=== PATIENT | female | born 1935 | race Caucasian/White ===

== ENCOUNTER 2016-08-31 09:06 | Outpatient (CLI) | payer MEDICARE | END 2016-08-31 09:07 | disposition home or self-care (01) | DX: K22.8 Other specified diseases of esophagus (principal); K44.9 Diaphragmatic hernia without obstruction or gangrene ==

== ENCOUNTER 2016-10-28 09:25 | Outpatient (CLI) | payer MEDICARE | END 2016-10-28 09:26 | disposition home or self-care (01) | DX: E78.5 Hyperlipidemia, unspecified (principal); J31.0 Chronic rhinitis ==

== ENCOUNTER 2016-11-03 13:51 | Outpatient (CLI) | payer MEDICARE | END 2016-11-03 13:52 | disposition home or self-care (01) | DX: Z12.31 Encounter for screening mammogram for malignant neoplasm of breast (principal) ==

== ENCOUNTER 2016-11-03 13:53 | Outpatient (CLI) | payer MEDICARE | END 2016-11-03 13:54 | disposition home or self-care (01) | DX: M85.88 Other specified disorders of bone density and structure, other site (principal) ==

== ENCOUNTER 2016-12-26 12:38 | Outpatient (CLI) | payer MEDICARE | END 2016-12-26 12:39 | disposition home or self-care (01) | DX: R60.9 Edema, unspecified (principal); I51.7 Cardiomegaly ==

== ENCOUNTER 2017-04-17 10:33 | Outpatient (CLI) | payer MEDICARE ==
[2017-04-17 11:02] LABS: BASOPHILS # (AUTO) 0.1 10^3/uL (0.0-0.1); BASOPHILS % (AUTO) 0.8 %; EOSINOPHILS # (AUTO) 0.2 10^3/uL (0.0-0.7); EOSINOPHILS % (AUTO) 3.5 %; HCT - HEMATOCRIT 44.3 % (37.0-47.0); HGB - HEMOGLOBIN 14.7 g/dL (12.0-16.0); LYMPHOCYTES # (AUTO) 1.7 10^3/uL (1.5-3.5); LYMPHOCYTES % (AUTO) 26.4 %; MEAN CORPUSCULAR HEMOGLOBIN 30.5 pg (27.0-31.0); MEAN CORPUSCULAR HGB CONC 33.2 g/dL (32.0-36.0); MEAN CORPUSCULAR VOLUME 91.9 fL (81.0-99.0); MEAN PLATELET VOLUME 7.6 fL (7.9-10.8); MONOCYTES # (AUTO) 0.5 10^3/uL (0.0-1.0); MONOCYTES % (AUTO) 7.7 %; NEUTROPHILS # (AUTO) 3.9 10^3/uL (1.5-6.6); NEUTROPHILS % (AUTO) 61.6 %; NUCLEATED RED BLOOD CELLS AUTO 0.2 /100WBC; RED BLOOD COUNT 4.81 10^6/uL (4.20-5.40); RED CELL DISTRIBUTION WIDTH 14.3 % (12.0-15.0); UNCORRECTED WHITE BLOOD COUNT 6.3 x10^3/uL; WHITE BLOOD COUNT 6.3 x10^3/uL (4.8-10.8)
[2017-04-17 11:13] LABS: ALBUMIN/GLOBULIN RATIO 1.5 (1.0-2.2); BILIRUBIN,TOTAL 0.7 mg/dL (0.2-1.0); BUN - BLOOD UREA NITROGEN 24 mg/dL (6-20); CALCIUM 9.2 mg/dL (8.5-10.3); CARBON DIOXIDE - CO2 23 mmol/L (21-32); CHLORIDE 106 mmol/L (101-111); CHOL/HDL RATIO 2.7 (<4.4); CHOLESTEROL 172 mg/dL; CREATININE 0.9 mg/dL (0.4-1.0); GFR - MDRD 60 (>89); GLUCOSE 98 mg/dL (70-100); HDL CHOLESTEROL 64 mg/dL; LDL/HDL RATIO 1.5 (<4.4); POTASSIUM 4.6 mmol/L (3.5-5.0); SODIUM 137 mmol/L (135-145); TOTAL PROTEIN 6.6 g/dL (6.7-8.2); TRIGLYCERIDES 56 mg/dL; VLDL CHOLESTEROL 11 mg/dL
== END 2017-04-17 10:34 | disposition home or self-care (01) ==
LOC: LAB 10:33
PROVIDERS: ATTEND Physician Assistant Medical
DX: E78.5 Hyperlipidemia, unspecified (principal)
CPT/HCPCS: 36415; 80053; 80061; 85025

== ENCOUNTER 2017-07-20 12:09 | Outpatient (CLI) | payer MEDICARE ==
[2017-07-20 20:31] LABS: CALCIUM 9.6 mg/dL (8.5-10.3)
== END 2017-07-20 12:10 ==
LOC: LAB.WCP 12:09
PROVIDERS: ATTEND Physician Assistant Medical
DX: E87.6 Hypokalemia (principal)
CPT/HCPCS: 36415; 80048

== ENCOUNTER 2017-08-09 10:30 | Outpatient (CLI) | payer MEDICARE ==
[2017-08-09 15:03] LABS: BASOPHILS % (AUTO) 0.7 %; EOSINOPHILS # (AUTO) 0.1 10^3/uL (0.0-0.7); HCT - HEMATOCRIT 43.5 % (37.0-47.0); HGB - HEMOGLOBIN 14.7 g/dL (12.0-16.0); LYMPHOCYTES # (AUTO) 1.3 10^3/uL (1.5-3.5); LYMPHOCYTES % (AUTO) 19.5 %; MEAN CORPUSCULAR HEMOGLOBIN 31.1 pg (27.0-31.0); MEAN CORPUSCULAR HGB CONC 33.7 g/dL (32.0-36.0); MEAN CORPUSCULAR VOLUME 92.2 fL (81.0-99.0); MEAN PLATELET VOLUME 7.8 fL (7.9-10.8); MONOCYTES # (AUTO) 0.5 10^3/uL (0.0-1.0); MONOCYTES % (AUTO) 7.6 %; NEUTROPHILS # (AUTO) 4.8 10^3/uL (1.5-6.6); NEUTROPHILS % (AUTO) 70.2 %; RED BLOOD COUNT 4.72 10^6/uL (4.20-5.40); RED CELL DISTRIBUTION WIDTH 14.8 % (12.0-15.0); UNCORRECTED WHITE BLOOD COUNT 6.8 x10^3/uL; WHITE BLOOD COUNT 6.8 x10^3/uL (4.8-10.8)
[2017-08-09 15:08] LABS: ALBUMIN/GLOBULIN RATIO 1.6 (1.0-2.2); BILIRUBIN,TOTAL 0.5 mg/dL (0.2-1.0); BUN - BLOOD UREA NITROGEN 20 mg/dL (6-20); CALCIUM 9.9 mg/dL (8.5-10.3); CARBON DIOXIDE - CO2 28 mmol/L (21-32); CHLORIDE 103 mmol/L (101-111); CHOL/HDL RATIO 2.5 (<4.4); CHOLESTEROL 187 mg/dL; CREATININE 0.9 mg/dL (0.4-1.0); GFR - MDRD 60 (>89); GLUCOSE 100 mg/dL (70-100); HDL CHOLESTEROL 75 mg/dL; LDL/HDL RATIO 1.3 (<4.4); POTASSIUM 4.3 mmol/L (3.5-5.0); SODIUM 141 mmol/L (135-145); TOTAL PROTEIN 6.7 g/dL (6.7-8.2); TRIGLYCERIDES 90 mg/dL; VLDL CHOLESTEROL 18 mg/dL
== END 2017-08-09 23:59 ==
LOC: LAB.WCP 10:30
PROVIDERS: ATTEND Family Medicine
DX: G45.9 Transient cerebral ischemic attack, unspecified (principal); E78.5 Hyperlipidemia, unspecified; E03.9 Hypothyroidism, unspecified; I10 Essential (primary) hypertension
CPT/HCPCS: 36415; 80053; 80061; 84443; 85025

== ENCOUNTER 2017-09-05 10:06 | Inpatient (IN) | payer MEDICARE ==
[2017-09-05] MEDS ORDERED: SODIUM CHLORIDE 0.9% 1,000 ML IV ONE (10:14)
[2017-09-05 10:59] LABS: PT - PROTHROMBIN TIME 11.8 secs (9.9-12.6)
[2017-09-05 11:01] LABS: BASOPHILS # (AUTO) 0.2 10^3/uL (0.0-0.1); CALCIUM 9.7 mg/dL (8.5-10.3); EOSINOPHILS # (AUTO) 0.1 10^3/uL (0.0-0.7); EOSINOPHILS % (AUTO) 0.9 %; HGB - HEMOGLOBIN 13.3 g/dL (12.0-16.0); LYMPHOCYTES # (AUTO) 0.9 10^3/uL (1.5-3.5); LYMPHOCYTES % (AUTO) 9.8 %; MEAN CORPUSCULAR HEMOGLOBIN 31.2 pg (27.0-31.0); MEAN CORPUSCULAR HGB CONC 32.4 g/dL (32.0-36.0); MEAN CORPUSCULAR VOLUME 96.2 fL (81.0-99.0); MONOCYTES # (AUTO) 0.4 10^3/uL (0.0-1.0); MONOCYTES % (AUTO) 4.9 %; NEUTROPHILS # (AUTO) 7.2 10^3/uL (1.5-6.6); NEUTROPHILS % (AUTO) 82.4 %; PLT - PLATELET COUNT 251 10^3/uL (130-450); RED BLOOD COUNT 4.25 10^6/uL (4.20-5.40); RED CELL DISTRIBUTION WIDTH 15.2 % (12.0-15.0); WHITE BLOOD COUNT 8.8 x10^3/uL (4.8-10.8)
--- NOTE | 2017-09-05 11:31 | ED Physician Documentation ---
History of Present Illness - Stated complaint Stated Complaint: BLOODY STOOL, LOW BP - Chief complaint Chief Complaint: General - Additonal information Additional information: hx from pt 82 f 4 days ago bloody BM 3 days ago black BM last 2 days just small amt of BM went to PMD today and on exam had mikayla melena and was orthostatic dropped her SBP to 80 so sent to ER no blood thinners no abd pain no bad food no travel no recent ab on plavix on mobic last colonoscopy 2009 reportedly neg Review of Systems Constitutional: denies: Fever, Chills Cardiac: denies: Chest pain / pressure Respiratory: denies: Dyspnea GI: reports: Bloody / black stool. denies: Abdominal Pain, Nausea, Vomiting Neurologic: denies: Syncope Endocrine: denies: Easy bruising / bleeding Immunocompromised: denies: Immunocompromised PD PAST MEDICAL HISTORY - Past Medical History Past Medical History: Yes Cardiovascular: Hypertension Respiratory: COPD Neuro: TIA Endocrine/Autoimmune: HyPOthyroidism GI: Chronic constipation : Frequency Psych: None Musculoskeletal: Osteoporosis - Past Surgical History Past Surgical History: Yes General: Hiatal hernia repair - Present Medications Home Medications: Ambulatory Orders Medication Instructions Recorded Confirmed Atenolol 50 mg PO QPM 12/21/12 09/05/17 Clopidogrel [Plavix] 75 mg PO DAILY 12/21/12 09/05/17 Levothyroxine Sodium [Levothroid] 100 mcg PO QDAC 12/21/12 09/05/17 Tiotropium [Spiriva] 1 puffs INH DAILY 12/21/12 09/05/17 Amitriptyline [Elavil] 25 mg PO QPM PRN 04/11/17 09/05/17 Budesonide/Formoterol Fumarate 2 puffs ORAL BID 04/11/17 09/05/17 [Symbicort 160-4.5 Mcg Inhaler] Meloxicam 15 mg PO QPM PRN 04/11/17 09/05/17 Calcium Carbonate/Vitamin D3 1 tab PO DAILY 09/05/17 09/05/17 [Calcium 500-Vit D3 200 Tablet] Cholecalciferol (Vitamin D3) 1,000 units PO DAILY 09/05/17 09/05/17 [Vitamin D3] Magnesium Oxide [Mag Ox] 400 mg PO DAILY 09/05/17 09/05/17 Spironolactone 25 mg PO BID 09/05/17 09/05/17 - Allergies Allergies/Adverse Reactions: Allergies Allergy/AdvReac Type Severity Reaction Status Date / Time No Known Drug Allergies Allergy Verified 03/25/16 14:23 - Social History Does the pt smoke?: No Smoking Status: Never smoker Does the pt drink ETOH?: Yes Does the pt have substance abuse?: No - Immunizations Immunizations are current?: Yes PD ED PE NORMAL - Vitals Vital signs reviewed: Yes - Neck Neck: Supple, no meningeal sign - Cardiac Cardiac: RRR - Respiratory Respiratory: No respiratory distress, Clear bilaterally - Abdomen Abdomen: Soft, Non tender - Rectal Rectal: Other (no mass, mikayla dark maroon heme occult + semi liquid stool, no mass palp on JUVE) Results - Vitals Vitals: Vital Signs - 24 hr 09/05/17 09/05/17 10:13 10:52 Temperature 36.7 C Heart Rate 64 Heart Rate [ 70 Sitting] Heart Rate [ 70 Standing] Heart Rate [ 64 Supine] Respiratory 18 Rate Blood Pressure 115/93 H Blood Pressure 130/86 H [Sitting] Blood Pressure 123/76 [Standing] Blood Pressure 137/77 H [Supine] O2 Saturation 97 Oxygen O2 Source Room air - EKG (time done) 1022 Rate: Rate (enter#) (65) Lytle: Normal Intervals: Normal AL QRS: Normal Ischemia: Non specific changes - Labs Labs: Laboratory Tests 09/05/17 09/05/17 09/05/17 10:35 10:35 10:35 WBC 8.8 RBC 4.25 Hgb 13.3 Hct 40.9 MCV 96.2 MCH 31.2 H MCHC 32.4 RDW 15.2 H Plt Count 251 MPV 8.0 Neut # 7.2 H Lymph # 0.9 L Guthrie # 0.4 Eos # 0.1 Baso # 0.2 H Absolute Nucleated RBC 0.00 Nucleated RBC % 0.0 PT 11.8 INR 1.0 APTT 28.5 Sodium 137 Potassium 3.8 Chloride 102 Carbon Dioxide 26 Anion Gap 9.0 BUN 31 H Creatinine 1.0 Estimated GFR (MDRD) 53 L Glucose 97 Calcium 9.7 Troponin I Blood Type Blood Type Recheck Antibody Screen Crossmatch IS Only 09/05/17 09/05/17 09/05/17 10:35 10:35 10:38 WBC RBC Hgb Hct MCV MCH MCHC RDW Plt Count MPV Neut # Lymph # Guthrie # Eos # Baso # Absolute Nucleated RBC Nucleated RBC % PT INR APTT Sodium Potassium Chloride Carbon Dioxide Anion Gap BUN Creatinine Estimated GFR (MDRD) Glucose Calcium Troponin I < 0.04 Blood Type O POSITIVE Blood Type Recheck O POSITIVE Antibody Screen NEGATIVE Crossmatch IS Only See Detail PD MEDICAL DECISION MAKING - ED course ED course: stable at rest nl orthostatics in ER but + in clinic still actively bleeding - if dc will likely have sig blood loss and return to ER before outpt wup can be accomplished will place obs for serial H/H and consideration of scopes on mobic so could be upper though no abd pain - gave pepcid Departure - Departure Disposition: ED Place in Observation Clinical Impression: GI bleed Qualifiers: GI bleed type/associated pathology: melena Qualified Code(s): K92.1 - Melena Condition: Good
[2017-09-05] MEDS ORDERED: FAMOTIDINE 20 MG/50 ML 50 ML IV ONE (11:33)
[2017-09-05] MEDS ORDERED: PROCHLORPERAZINE 10 MG/2 ML VIAL IVP PRN (12:11)
[2017-09-05] MEDS ORDERED: SODIUM CHLORIDE FLUSH 0.9% 10 ML SYRINGE IVP PRN (12:11)
[2017-09-05] MEDS ORDERED: oxyCODONE 5 MG TABLET PO PRN (12:11)
[2017-09-05] MEDS ORDERED: TEMAZEPAM 15 MG CAPSULE PO PRN (12:11)
--- NOTE | 2017-09-05 13:10 | HISTORY & PHYSICAL EXAMINATION ---
Chief Complaint - Chief Complaint Chief Complaint: GI Bleed History of Present Illness - Admitted From Admitted From:: Home - History of Present Illness HPI Comment/Other: Ms. Patria Alcantara is a very pleasant 82-year-old woman who had an episode about 2 months ago bright red blood per rectum. This turned into black stools and then regular stools over the course of about 2 or 3 days. This reoccurred this past weekend and today the patient became very lightheaded and went in to see her doctor, Dr. Warren. Dr. Warren evaluated the patient and sent her to the emergency department for further evaluation and treatment. History - Past Medical History Cardiovascular: reports: Hypertension Respiratory: reports: COPD Neuro: reports: TIA Endocrine/Autoimmune: reports: HyPOthyroidism GI: reports: Chronic constipation : reports: Frequency Psych: reports: None Musculoskeletal: reports: Osteoporosis MRSA Hx?: No - Past Surgical History General: reports: Other (Umbilical hernia repair) - Family & Social History Family History: Mother: , CVA/TIA, Father: , COPD/Emphysema Living arrangement: At home Living Situation: Alone - Substance History Use: Uses substance without health or social issues: Alcohol Abuse: Recurrent use of substance despite neg consequences: NONE Dependence: Experiences withdrawal or developed tolerances: NONE - POLST Patient has POLST: Yes POLST Status: DNR (Patient states she has not filled out a POLST however wishes to have DO NOT RESUSCITATE order status) Meds/Allgy - Home Medications Home Medications: Ambulatory Orders Medication Instructions Recorded Confirmed Atenolol 50 mg PO DAILY 12/21/12 09/05/17 Clopidogrel [Plavix] 75 mg PO DAILY 12/21/12 09/05/17 Levothyroxine Sodium [Levothroid] 100 mcg PO DAILY 12/21/12 09/05/17 Tiotropium [Spiriva] 1 puffs INH DAILY 12/21/12 09/05/17 Amitriptyline [Elavil] 25 mg PO QPM 04/11/17 09/05/17 Budesonide/Formoterol Fumarate 2 puffs ORAL DAILY 04/11/17 09/05/17 [Symbicort 160-4.5 Mcg Inhaler] Meloxicam 15 mg PO DAILY 04/11/17 09/05/17 Calcium Carbonate/Vitamin D3 1 tab PO DAILY 09/05/17 09/05/17 [Calcium 500-Vit D3 200 Tablet] Cholecalciferol (Vitamin D3) 1,000 units PO DAILY 09/05/17 09/05/17 [Vitamin D3] Magnesium Oxide [Mag Ox] 400 mg PO DAILY 09/05/17 09/05/17 Spironolactone 25 mg PO BID 09/05/17 09/05/17 - Allergies Allergies/Adverse Reactions: Allergies Allergy/AdvReac Type Severity Reaction Status Date / Time No Known Drug Allergies Allergy Verified 03/25/16 14:23 Review of Systems - Constitutional Constitutional: denies: Fatigue, Fever, Chills, Malaise - Eyes Eyes: denies: Pain, Irritation, Blurred vision, Dipolpia - Ears, Nose & Throat Ears, Nose & Throat: denies: Ear pain, Hearing loss, Hearing aids, Tinnitus, Vertigo, Nasal pain, Nasal discharge - Cardiovascular Cariovascular: reports: Edema. denies: Irregular heart rate, Palpitations, Chest pain - Respiratory Respiratory: denies: Cough, Sputum production, Wheezing, Hemoptysis, Orthopnea - Gastrointestinal Gastrointestinal: reports: Black stools, Bloody stools. denies: Abdominal pain , Abdominal distention, Constipation, Diarrhea, Change in bowel habits, Rectal bleeding - Genitourinary Genitourinary: denies: Dysuria, Frequency, Urgency, Hematuria - Musculoskeletal Musculoskeletal: denies: Muscle pain, Back pain, Muscle aches, Stiffness - Integumentary Integumentary: denies: Rash, Pruritis, Lesions, Dryness - Neurological Neurological: denies: General weakness, Focal weakness, Headache, Dizziness - Endocrine Endocrine: denies: Polyuria, Polydypsia, Polyphagia - Hematologic/Lymphatic Hematologic/Lymphatic: denies: Anemia, Bruising, Petechiae, Lymphadenopathy - All Other Systems All Other Systems: reports: Reviewed and negative Exam - Vital Signs Reviewed Vital Signs: Yes Vital Signs: Vital Signs x48h Temp Pulse Pulse Pulse Pulse Resp BP 09/05/17 10:52 70 70 64 09/05/17 10:13 36.7 C 64 18 115/93 H BP BP BP Pulse Ox 09/05/17 10:52 130/86 H 123/76 137/77 H 09/05/17 10:13 97 - Physical Exam General Appearance: positive: No acute distress, Alert Eyes Bilateral: positive: Normal inspection, PERRL, EOMI, No lid inflammation ENT: positive: ENT inspection nml, Pharynx nml, No signs of dehydration. negative: Purulent nasal drainage Neck: positive: Nml inspection, Thyroid nml, No JVD, Trachea midline. negative : Thyromegaly Respiratory: positive: Chest non-tender, No respiratory distress, Breath sounds nml. negative: Wheezes, Rales, Rhonchi Cardiovascular: positive: Regular rate & rhythm, No murmur, No gallop Peripheral Pulses: positive: 1+ Abdomen: positive: Non-tender, No organomegaly, Nml bowel sounds, No distention. negative: Guarding, Rebound Back: positive: Nml inspection. negative: CVA tenderness (R), CVA tenderness (L ) Skin: positive: Color nml, No rash, Warm, Dry. negative: Cyanosis Extremities: positive: Non-tender, Full ROM, Nml appearance Neurologic/Psychiatric: positive: Oriented x3, CN's nml (2-12), Motor nml, Sensation nml, Mood/affect nml Conclusion/Plan - Problem List (1) GI bleed Conclusion/Plan: At this time although she has been orthostatic she remains relatively stable with a hemoglobin of 13 and a hematocrit of 30.9. We will give her IV fluids and she may be dry as evidenced by the orthostasis and admit her to an observation bed. Will obtain a consultation with the on-call surgeon and address any other issues as they arise. We will continue the patient on her home medications. Qualifiers: GI bleed type/associated pathology: melena Qualified Code(s): K92.1 - Melena (2) COPD (chronic obstructive pulmonary disease) Conclusion/Plan: Well-managed, the patient is not in any respiratory distress at this time. Continue present care. (3) HTN (hypertension) Conclusion/Plan: Patient has a history of hypertension, her pressure is well-managed at this time. Continue home medications. Qualifiers: Hypertension type: essential hypertension Qualified Code(s): I10 - Essential (primary) hypertension - Lab Results Lab results reviewed: Yes Ramo Bones: 09/05/17 10:35 09/05/17 10:35 Core Measures - Anticipated LOS I expect patient to be DC'd or transferred within 96 hours.: Yes - DVT/VTE - Prophylaxis VTE/DVT Device ordered at admit?: Yes
[2017-09-05] MEDS ORDERED: ALBUTEROL NEB 2.5 MG/3 ML INH PRN (13:40)
[2017-09-05] MEDS: D5.45NS W/20 MEQ KCL 1,000 ML IV SCH ×2 (13:51→23:42)
[2017-09-05] MEDS ORDERED: AMITRIPTYLINE 25 MG TABLET PO PRN (13:53)
[2017-09-05] MEDS: SODIUM CHLORIDE FLUSH 0.9% 10 ML SYRINGE IVP SCH ×2 (14:27→21:32)
[2017-09-05] MEDS: SPIRONOLACTONE 25 MG TABLET PO SCH (15:10)
[2017-09-05] MEDS: PANTOPRAZOLE 40 MG VIAL IVP SCH (17:00)
[2017-09-05] MEDS: SODIUM/POTASSIUM/MAG SULFATES 354 ML PREP KIT PO SCH (19:26)
[2017-09-05] MEDS ORDERED: AMITRIPTYLINE 25 MG TABLET PO SCH (21:00)
[2017-09-05] MEDS: ATENOLOL 25 MG TABLET PO SCH (21:20)
[2017-09-05] MEDS: IPRATROPIUM 0.2 MG/ML NEB INH SCH (22:35)
[2017-09-05] MEDS: BUDESONIDE 0.5 MG/2 ML NEB INH SCH (22:35)
[2017-09-05] MEDS: FORMOTEROL FUMARATE NEB 20 MCG/2 ML INH SCH (22:35)
--- NOTE | 2017-09-05 22:40 | CONSULTATION NOTE ---
Referring Provider Name of Referring Provider:: Mervat Obrien MD Consult Date: 09/05/17 Chief Complaint - Chief Complaint Chief Complaint: Occult blood positive stools History of Present Illness - Admitted From Admitted From:: Emergency Department - History Obtained From Records Reviewed: Yes History obtained from: Patient Exam Limitations: None - History of Present Illness HPI Comment/Other: Dr. Mervat Obrien called me on consultation to evaluate this very pleasant 82-year -old female after she presented to the emergency department today and was evaluated by Dr. Karen Stovall and it was determined that she had OB positive stools. The story is that she was seen in her primary care doctor's office where she was determined to have orthostatic hypotension. The patient states that several months ago she had an episode of blood per rectum which then resolved. This repeated itself several days ago. This was described as painless red blood per rectum. The patient denies any hematemesis, nausea, vomiting, or unexplained or unwarranted weight loss. The patient's last colonoscopy was performed in October [address] Fru Galvan who noted MASSIVE diverticulosis throughout her colon. The capitalization of the word massive was done by Dr. Fru Galvan. Additionally she was seen by Dr. Raj Cordero on August 16, 2016 and diagnosed with dysphasia. The plan the Dr. Ramirez outlined for her was a barium swallow followed by an EGD. 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 The patient then called and canceled her EGD that had been scheduled for September 12, 2016. Importantly the patient is on both Mobic and Plavix. History - Past Medical History Cardiovascular: reports: Hypertension Respiratory: reports: COPD Neuro: reports: TIA Endocrine/Autoimmune: reports: HyPOthyroidism GI: reports: Chronic constipation : reports: Frequency HEENT: reports: None Psych: reports: None Musculoskeletal: reports: Osteoporosis Derm: reports: None MRSA Hx?: No - Past Surgical History General: reports: Other (Umbilical hernia repair) - Family & Social History Family History: Mother: , CVA/TIA, Father: , COPD/Emphysema Living arrangement: At home Living Situation: Alone - Substance History Use: Uses substance without health or social issues: Alcohol Abuse: Recurrent use of substance despite neg consequences: NONE Dependence: Experiences withdrawal or developed tolerances: NONE - POLST Patient has POLST: Yes POLST Status: DNR (Patient states she has not filled out a POLST however wishes to have DO NOT RESUSCITATE order status) Meds/Allgy - Home Medications Home Medications: Ambulatory Orders Medication Instructions Recorded Confirmed Atenolol 50 mg PO QPM 12/21/12 09/05/17 Clopidogrel [Plavix] 75 mg PO DAILY 12/21/12 09/05/17 Levothyroxine Sodium [Levothroid] 100 mcg PO QDAC 12/21/12 09/05/17 Tiotropium [Spiriva] 1 puffs INH DAILY 12/21/12 09/05/17 Amitriptyline [Elavil] 25 mg PO QPM PRN 04/11/17 09/05/17 Budesonide/Formoterol Fumarate 2 puffs ORAL BID 04/11/17 09/05/17 [Symbicort 160-4.5 Mcg Inhaler] Meloxicam 15 mg PO QPM PRN 04/11/17 09/05/17 Calcium Carbonate/Vitamin D3 1 tab PO DAILY 09/05/17 09/05/17 [Calcium 500-Vit D3 200 Tablet] Cholecalciferol (Vitamin D3) 1,000 units PO DAILY 09/05/17 09/05/17 [Vitamin D3] Magnesium Oxide [Mag Ox] 400 mg PO DAILY 09/05/17 09/05/17 Spironolactone 25 mg PO BID 09/05/17 09/05/17 - Allergies Allergies/Adverse Reactions: Allergies Allergy/AdvReac Type Severity Reaction Status Date / Time No Known Drug Allergies Allergy Verified 03/25/16 14:23 Review of Systems - Constitutional Constitutional: denies: Fatigue, Malaise, Weakness, Poor appetite, Night sweats , Weight loss - Cardiovascular Cariovascular: denies: Irregular heart rate, Chest pain - Respiratory Respiratory: denies: Cough, Sputum production, Hemoptysis, Apnea - Gastrointestinal Gastrointestinal: denies: Abdominal pain, Constipation, Diarrhea, Nausea, Vomiting, Bile emesis, Howard blood emesis, Coffee grounds emesis, Bloating - Integumentary Integumentary: denies: Rash - Neurological Neurological: denies: General weakness, Focal weakness - Endocrine Endocrine: denies: Polyuria, Polydypsia, Polyphagia - Hematologic/Lymphatic Hematologic/Lymphatic: denies: Anemia Exam - Vital Signs Reviewed Vital Signs: Yes Vital Signs: Vital Signs x48h Temp Pulse Resp BP Pulse Ox 09/05/17 21:10 36.3 C L 59 L 18 107/70 97 09/05/17 15:31 36.7 C 59 L 18 113/75 97 - Physical Exam General Appearance: positive: No acute distress (The patient is examined in room 2111 in the observation winter of [facility].) Eyes Bilateral: positive: No lid inflammation, Conjunctivae nml, No scleral icterus Neck: positive: Trachea midline Respiratory: positive: Chest non-tender, No respiratory distress, Breath sounds nml Cardiovascular: positive: Regular rate & rhythm Abdomen: positive: Non-tender, Nml bowel sounds Rectal: positive: Other (Deferred until colonoscopy.) Skin: positive: Color nml Extremities: positive: Non-tender, Nml appearance Neurologic/Psychiatric: positive: Oriented x3 Conclusion/Plan - Diagnosis Diagnosis: Gastrointestinal bleed. - Plan Plan: Esophagogastroduodenoscopy and colonoscopy with possible biopsies and/or polypectomies. Indications, procedure, alternatives (such as barium studies ( upper or lower), Cologuard (lower) and even no procedure at all) and risks including but not limited to perforation requiring operative repair, bleeding with its risks, and were fully explained to her. Conscious sedation was discussed at length with her as were its risks including but not limited to loss of airway, aspiration, respiratory depression, and not enough relief of pain and anxiety and she indicated that she wished to have conscious sedation for her procedure. I explained that her posterior oropharynx would also be anesthetized for the procedure. I explained that MAC anesthesia is associated with a higher incidence of intestinal perforation. Review of her history does not reveal any significant systemic disease that would contraindicate use of conscious sedation or MAC anesthesia. All questions were fully answered. Verbal and written consent was obtained. The patient in preparation for her esophagogastroduodenoscopy and colonoscopy will be n.p.o. and her colon will be mechanically prepped (I have ordered the clear liquid diet and the Suprep). 35 minutes of [id number] time spent with the patient the majority of which was spent in discussion - Lab Results Lab results reviewed: Yes Fish Bones: 09/05/17 10:35 09/05/17 10:35 - EKG Results EKG Interpreted Independently: No - Other Other Results/Comments: Due to scheduling conflicts this procedure will likely be done at or after 2 PM on September 06, 2017. The patient was informed of this.
[2017-09-06] MEDS: SODIUM CHLORIDE FLUSH 0.9% 10 ML SYRINGE IVP SCH ×2 (07:12→14:05)
[2017-09-06] MEDS: LEVOTHYROXINE 100 MCG TABLET PO SCH (07:12)
[2017-09-06] MEDS: PANTOPRAZOLE 40 MG VIAL IVP SCH ×2 (07:12→17:38)
[2017-09-06] MEDS: POLYETHYLENE GLYCOL 3350 17 GM PACKET PO SCH (08:58)
[2017-09-06] MEDS ORDERED: hydroCHLOROthiazide 25 MG TABLET PO SCH (09:00)
[2017-09-06] MEDS: MAGNESIUM OXIDE 400 MG TABLET PO SCH (09:18)
[2017-09-06] MEDS: SPIRONOLACTONE 25 MG TABLET PO SCH (09:18)
[2017-09-06] MEDS: SODIUM/POTASSIUM/MAG SULFATES 354 ML PREP KIT PO SCH (09:29)
[2017-09-06] MEDS: D5.45NS W/20 MEQ KCL 1,000 ML IV SCH ×2 (09:29→19:26)
[2017-09-06] MEDS ORDERED: MIDAZOLAM 2 MG/2 ML VIAL IVP ONE (14:47)
[2017-09-06] MEDS ORDERED: fentaNYL 100 MCG/2 ML VIAL IVP ONE (14:47)
[2017-09-06] MEDS ORDERED: LACTATED RINGERS 1,000 ML IV ONE (14:59)
--- NOTE | 2017-09-06 18:01 | PROVIDER PROGRESS NOTE ---
Subjective - Prog Note Date Prog Note Date: 09/06/17 Prog Note Time: 18:00 - Subjective Pt reports feeling: No change Current Medications - Current Medications Current Medications: Atenolol, Plavix, levothyroxine, Spiriva, Elavil, Symbicort, meloxicam, calcium carbonate, vitamin D3, magnesium oxide, and Spironolactone Objective - Vital Signs/Intake & Output Reviewed Vital Signs: Yes Vital Signs: Vital Signs x48h Temp Pulse Pulse Resp BP Pulse Ox 09/06/17 16:35 36.5 C 68 15 128/64 96 09/06/17 16:23 60 14 137/61 H 95 09/06/17 16:07 36.2 C L 65 16 150/75 H 95 09/06/17 15:59 36.2 C L 74 14 144/72 H 98 09/06/17 15:54 97 09/06/17 15:48 100 09/06/17 12:37 36.6 C 70 18 116/86 H 98 Intake & Output: Intake & Output 09/03/17 09/04/17 09/05/17 09/06/17 23:59 23:59 23:59 23:59 Intake Total 4125 3598.333 Balance 4125 3598.333 - Objective General Appearance: positive: No acute distress, Alert Eyes Bilateral: positive: Normal inspection, PERRL, EOMI ENT: positive: ENT inspection nml, Pharynx nml, No signs of dehydration Neck: positive: Nml inspection, Thyroid nml, No JVD, Trachea midline. negative : Thyromegaly Respiratory: positive: Chest non-tender, No respiratory distress, Breath sounds nml. negative: Wheezes, Rales, Rhonchi Cardiovascular: positive: Regular rate & rhythm, No murmur, No gallop. negative : Tachycardia Abdomen: positive: Non-tender, No organomegaly, Nml bowel sounds, No distention. negative: Guarding, Rebound Rectal: positive: Stool - heme POS Back: positive: Nml inspection. negative: CVA tenderness (R), CVA tenderness (L ) Skin: positive: Color nml, No rash, Warm, Dry. negative: Cyanosis Extremities: positive: Non-tender, Full ROM, Nml appearance. negative: Pedal edema Neurologic/Psychiatric: positive: Oriented x3, CN's nml (2-12), Motor nml, Sensation nml, Mood/affect nml - Lab Results Fish Bones: 09/05/17 10:35 09/05/17 10:35 Assessment/Plan - Problem List (1) GI bleed Impression: The patient underwent both an upper and lower endoscopy today with Dr. Patel's office. He found a bleeding diverticula in the patient's left distal colon. He was unable to isolate the exact source and we will be referring the patient to interventional radiology for further assessment and treatment. At this time however her hemoglobin is 13.3 and her hematocrit is 40.9 Qualifiers: GI bleed type/associated pathology: melena Qualified Code(s): K92.1 - Melena (2) COPD (chronic obstructive pulmonary disease) Impression: The patient is breathing easily on room air. We will continue with her current home medication regimen. (3) HTN (hypertension) Impression: The patient's blood pressure has been well managed. We will continue with the current medication regimen. Qualifiers: Hypertension type: essential hypertension Qualified Code(s): I10 - Essential (primary) hypertension
[2017-09-06] MEDS: IPRATROPIUM 0.2 MG/ML NEB INH SCH ×2 (19:27→21:45)
[2017-09-06] MEDS: FORMOTEROL FUMARATE NEB 20 MCG/2 ML INH SCH ×2 (19:27→21:44)
[2017-09-06] MEDS: BUDESONIDE 0.5 MG/2 ML NEB INH SCH ×2 (19:27→21:44)
[2017-09-06] MEDS: ATENOLOL 25 MG TABLET PO SCH (21:52)
[2017-09-07] MEDS: IPRATROPIUM 0.2 MG/ML NEB INH SCH ×2 (01:23→10:51)
[2017-09-07] MEDS: LEVOTHYROXINE 100 MCG TABLET PO SCH (06:33)
[2017-09-07] MEDS ORDERED: SODIUM CHLORIDE FLUSH 0.9% 10 ML SYRINGE ONE ×2 (06:34)
[2017-09-07] MEDS: PANTOPRAZOLE 40 MG VIAL IVP SCH (07:00)
[2017-09-07 08:08] VITALS: BP 139/89
[2017-09-07] MEDS: POLYETHYLENE GLYCOL 3350 17 GM PACKET PO SCH (08:20)
[2017-09-07] MEDS: SPIRONOLACTONE 25 MG TABLET PO SCH (08:23)
[2017-09-07] MEDS: MAGNESIUM OXIDE 400 MG TABLET PO SCH (08:23)
--- NOTE | 2017-09-07 09:24 | Discharge Plan ---
Discharge Plan Disposition: 01 Home, Self Care Condition: Good Diet: Regular Activity Restrictions: Activity as Tolerated Shower Restrictions: No Driving Restrictions: No Weight Bearing: Full Weight (The patient was admitted and seen by Dr. Baptiste who did an upper and lower endoscopy. At this point the consensus is that the patient should be seen by an interventional radiologist for coiling of the leaking diverticula. If the patient has further bouts of rectal bleeding and re -presents to the emergency department we are in agreement that the patient should be transferred to a facility that has an interventional radiologist rather than be admitted.) Instruction Topics: Bleeding Gastrointestinal No Smoking: If you smoke, Please STOP! Call for help. Follow-up with: Aria Warren PA-C [Primary Care Provider] -
[2017-09-07] MEDS: FORMOTEROL FUMARATE NEB 20 MCG/2 ML INH SCH (10:52)
[2017-09-07] MEDS: BUDESONIDE 0.5 MG/2 ML NEB INH SCH (10:52)
--- NOTE | 2017-09-08 17:11 | DISCHARGE SUMMARY ---
Discharge Summary Admit Date: 09/05/17 Discharge Date: 09/07/17 Discharging Provider: Mervat Obrien DO Primary Care Provider: Aria Warren Code Status: Attempt Resuscitation Condition at Discharge: Good Discharge Disposition: Home, Self Care - DIAGNOSES Admission Diagnoses: GI bleed - HPI History of Present Illness: Ms. Patria Alcantara is a very pleasant 82-year-old woman who had an episode about 2 months ago bright red blood per rectum. This turned into black stools and then regular stools over the course of about 2 or 3 days. This reoccurred this past weekend and today the patient became very lightheaded and went in to see her doctor, Dr. Warren. Dr. Warren evaluated the patient and sent her to the emergency department for further evaluation and treatment. - HOSPITAL COURSE Hospital Course: Patient was admitted to the hospital on the medical surgical unit. She was placed n.p.o. and underwent a bowel prep. She underwent an upper and lower endoscopy with Dr. Patel's office who found a bleeding site in the patient's left distal colon. He believes this is inside a diverticula but was unable to find the source.The patient will be discharged home and will follow up with her primary care physician and will follow up with interventional radiology on an outpatient basis to seal this bleed. - ALLERGIES Allergies/Adverse Reactions: Allergies Allergy/AdvReac Type Severity Reaction Status Date / Time No Known Drug Allergies Allergy Verified 03/25/16 14:23 - MEDICATIONS Home Medications: Ambulatory Orders Medication Instructions Recorded Confirmed Atenolol 50 mg PO QPM 12/21/12 09/05/17 Clopidogrel [Plavix] 75 mg PO DAILY 12/21/12 09/05/17 Levothyroxine Sodium [Levothroid] 100 mcg PO QDAC 12/21/12 09/05/17 Tiotropium [Spiriva] 1 puffs INH DAILY 12/21/12 09/05/17 Amitriptyline [Elavil] 25 mg PO QPM PRN 04/11/17 09/05/17 Budesonide/Formoterol Fumarate 2 puffs ORAL BID 04/11/17 09/05/17 [Symbicort 160-4.5 Mcg Inhaler] Meloxicam 15 mg PO QPM PRN 04/11/17 09/05/17 Calcium Carbonate/Vitamin D3 1 tab PO DAILY 09/05/17 09/05/17 [Calcium 500-Vit D3 200 Tablet] Cholecalciferol (Vitamin D3) 1,000 units PO DAILY 09/05/17 09/05/17 [Vitamin D3] Magnesium Oxide [Mag Ox] 400 mg PO DAILY 09/05/17 09/05/17 Spironolactone 25 mg PO BID 09/05/17 09/05/17 - PHYSICAL EXAM AT DISCHARGE General Appearance: positive: No acute distress, Alert Eyes Bilateral: positive: Normal inspection, PERRL, EOMI, No lid inflammation, Conjunctivae nml ENT: positive: ENT inspection nml, Pharynx nml, No signs of dehydration Neck: positive: Nml inspection, Thyroid nml, No JVD, Trachea midline. negative : Thyromegaly Respiratory: positive: Chest non-tender, No respiratory distress, Breath sounds nml. negative: Wheezes, Rales, Rhonchi Cardiovascular: positive: Regular rate & rhythm, No murmur, No gallop Peripheral Pulses: positive: 1+ Abdomen: positive: Non-tender, No organomegaly, Nml bowel sounds, No distention. negative: Tenderness Back: positive: Nml inspection. negative: CVA tenderness (R), CVA tenderness (L ) Skin: positive: Color nml, No rash, Warm, Dry. negative: Cyanosis Extremities: positive: Non-tender, Full ROM, Nml appearance, No pedal edema Neurologic/Psychiatric: positive: Oriented x3, CN's nml (2-12), Motor nml, Sensation nml, Mood/affect nml - LABS Result Diagrams: 09/05/17 10:35 09/05/17 10:35 - FOLLOW UP Follow Up: The patient will follow up with Dr. Hailey Warren as an outpatient next week and will make arrangements for outpatient interventional radiology to ablate the leaking diverticulum. - TIME SPENT Time Spent in Discharge (Minutes): 40
== END 2017-09-07 12:45 | disposition home or self-care (01) | DRG 379 ==
LOC: ED 10:06 → OBS 12:11 → OBSVTOIN 09-06 17:55 → MS2 09-06 20:18
PROVIDERS: ADMIT Hospitalist; ATTEND Hospitalist
PROC: 0DBN8ZZ Excision of Sigmoid Colon, Via Natural or Artificial Opening Endoscopic (ICD-10-PCS; principal; 2017-09-06 14:00)
PROC: 0DB68ZX Excision of Stomach, Via Natural or Artificial Opening Endoscopic, Diagnostic (ICD-10-PCS; 2017-09-06 14:00)
DX: K57.31 Diverticulosis of large intestine without perforation or abscess with bleeding (principal); K63.5 Polyp of colon; K29.70 Gastritis, unspecified, without bleeding; J44.9 Chronic obstructive pulmonary disease, unspecified; K44.9 Diaphragmatic hernia without obstruction or gangrene; I10 Essential (primary) hypertension; E03.9 Hypothyroidism, unspecified; K59.09 Other constipation; R35.0 Frequency of micturition; M81.0 Age-related osteoporosis without current pathological fracture; Z66 Do not resuscitate; Z79.02 Long term (current) use of antithrombotics/antiplatelets; Z79.51 Long term (current) use of inhaled steroids; Z79.899 Other long term (current) drug therapy; Z86.73 Personal history of transient ischemic attack (TIA), and cerebral infarction without residual deficits
CPT/HCPCS: 43239; 45380; G0378; 36415; 80048; 84484; 85025; 85610; 85730; 86850; 86900; 86901; 86920; 87081; 88305; 93005; 94640; 96361; 96365; 96375; 96376; 99283; 99284

== ENCOUNTER 2017-11-28 12:45 | Outpatient (CLI) | payer MEDICARE ==
--- NOTE | 2017-11-29 12:03 | Mammography Report ---
DIGITAL SCREENING MAMMOGRAM: 11/28/2017 CLINICAL INDICATION: An 82-year-old, for screening. COMPARISON: 10/2016, 07/2015, 10/2012, 10/2011. TECHNIQUE: Routine CC and MLO projections were obtained of the breasts. FINDINGS: The breasts demonstrate scattered fibroglandular densities bilaterally. Coarse, typically benign calcifications are present. No suspicious masses, clustered microcalcifications, or regions of architectural distortion are identified. IMPRESSION: BENIGN FINDINGS. RECOMMENDATION: ROUTINE ANNUAL SCREENING UNLESS OTHERWISE CLINICALLY INDICATED. BIRADS CATEGORY 2-BENIGN FINDINGS. STANDARD QUALIFYING STATEMENTS: 1. This examination was reviewed with the aid of Computer-Aided Detection (CAD). 2. A negative or benign imaging report should not delay biopsy if clinically suspicious findings are present. Consider surgical consultation if warranted. More than 5% of cancers are not identified by imaging. 3. Dense breasts may obscure an underlying neoplasm. TD: 11/29/2017 12:01
== END 2017-11-28 12:46 | disposition home or self-care (01) ==
LOC: DI 12:45
PROVIDERS: ATTEND Physician Assistant Medical
DX: Z12.31 Encounter for screening mammogram for malignant neoplasm of breast (principal)
CPT/HCPCS: 77067

== ENCOUNTER 2018-02-25 12:49 | Outpatient (CLI) | payer MEDICARE | END 2018-02-25 12:50 | disposition home or self-care (01) | LOC: DI 12:49 | PROVIDERS: ATTEND Internal Medicine Cardiovascular Disease | DX: I10 Essential (primary) hypertension (principal) | CPT/HCPCS: 93306 ==

== ENCOUNTER 2018-04-10 19:29 | Emergency (ER) | payer MEDICARE ==
[2018-04-10 19:37] VITALS: BP 121/81
[2018-04-10] MEDS ORDERED: BACITRACIN OINT TOP ONE (20:30)
--- NOTE | 2018-04-10 20:35 | ED Physician Documentation ---
History of Present Illness - Stated complaint Stated Complaint: RT LEG INJ - Chief complaint Chief Complaint: Wound - History obtained from History obtained from: Patient, Family - History of Present Illness Timing: Today Pain level max: 0 Pain level now: 0 - Additonal information Additional information: Patient is an 83-year-old female who presents to the emergency department with a wound to the right leg that has been present for the past 3 days after injuring it on a mattress. She has kept it clean at home. Started to rebleed hazelkristy and was brought in for evaluation. She states her tetanus shot is up-to -date. Nothing makes it better or worse. Review of Systems Constitutional: denies: Fever GI: denies: Vomiting Skin: denies: Rash PD PAST MEDICAL HISTORY - Past Medical History Cardiovascular: Hypertension Respiratory: COPD Endocrine/Autoimmune: HyPOthyroidism GI: Chronic constipation : Frequency HEENT: None Psych: None Musculoskeletal: Osteoporosis Derm: None - Past Surgical History Past Surgical History: Yes General: Other - Present Medications Home Medications: Ambulatory Orders Medication Instructions Recorded Confirmed Atenolol 50 mg PO QPM 12/21/12 04/10/18 Levothyroxine Sodium [Levothroid] 100 mcg PO QDAC 12/21/12 04/10/18 Tiotropium [Spiriva] 1 puffs INH DAILY 12/21/12 04/10/18 Amitriptyline [Elavil] 25 mg PO QPM PRN 04/11/17 04/10/18 Budesonide/Formoterol Fumarate 2 puffs ORAL BID 04/11/17 04/10/18 [Symbicort 160-4.5 Mcg Inhaler] Spironolactone 25 mg PO BID 09/05/17 04/10/18 Apixaban [Eliquis] 1 tab PO DAILY 04/10/18 04/10/18 - Allergies Allergies/Adverse Reactions: Allergies Allergy/AdvReac Type Severity Reaction Status Date / Time No Known Drug Allergies Allergy Verified 04/10/18 19:37 - Social History Does the pt smoke?: No Smoking Status: Never smoker Does the pt drink ETOH?: Yes Does the pt have substance abuse?: No - Immunizations Immunizations are current?: Yes - POLST Patient has POLST: Yes POLST Status: DNR (Patient states she has not filled out a POLST however wishes to have DO NOT RESUSCITATE order status) PD ED PE NORMAL - Vitals Vital signs reviewed: Yes - General General: Alert and oriented X 3, No acute distress - HEENT HEENT: Moist mucous membranes - Extremities Extremities: Other (R LE - 2cm curved skin tear to the anterior mid hall. Not bleeding. No signs of infection. NVI) - Neuro Neuro: Alert and oriented X 3 - Psych Psych: Normal mood, Normal affect Results - Vitals Vitals: Vital Signs - 24 hr 04/10/18 19:32 Temperature 36.3 C L Heart Rate 92 Respiratory 18 Rate Blood Pressure 121/81 H O2 Saturation 98 Oxygen O2 Source Room air PD MEDICAL DECISION MAKING - ED course Complexity details: considered differential, d/w patient, d/w family ED course: Patient is an 83-year-old female with a [id number] skin tear to the right lower extremity. This was cleansed, Mepitel was placed over the wound, then bacitracin and then wrapped with Kerlix. Tetanus is up-to-date. No other acute injuries. Warnings of infection and instructions on wound care given at bedside. Also counseled on how to minimize scarring. Patient counseled regarding signs and symptoms for which I believe and urgent re-evaluation would be necessary. Patient with good understanding of and agreement to plan and is comfortable going home at this time This document was made in part using voice recognition software. While efforts are made to proofread this document, sound alike and grammatical errors may occur. - Sepsis Event Vital Signs: Vital Signs - 24 hr 04/10/18 19:32 Temperature 36.3 C L Heart Rate 92 Respiratory 18 Rate Blood Pressure 121/81 H O2 Saturation 98 Oxygen O2 Source Room air Departure - Departure Disposition: 01 Home, Self Care Clinical Impression: Skin tear Condition: Good Instructions: ED Wound Care Follow-Up: Aria Warren PA-C [Primary Care Provider] - Within 3 Days Comments: Return if you worsen. Apply antibiotic ointment twice daily. Follow up closely with your doctor for further care. Discharge Date/Time: 04/10/18 20:48
[2018-04-10] MEDS ORDERED: BACITRACIN OINT TOP STA (20:36)
== END 2018-04-10 20:48 | disposition home or self-care (01) ==
LOC: ED 19:29
DX: S81.811A Laceration without foreign body, right lower leg, initial encounter (principal); W06.XXXA Fall from bed, initial encounter; E03.9 Hypothyroidism, unspecified; I10 Essential (primary) hypertension
CPT/HCPCS: 99283; A9270

== ENCOUNTER → 2018-04-24 | Outpatient (CLI) | payer MEDICARE | LOC: LAB.R 13:33 | PROVIDERS: ATTEND Physician Assistant Medical | DX: S80.811A Abrasion, right lower leg, initial encounter (principal) | CPT/HCPCS: 87070; 87075; 87076; 87077; 87147; 87185; 87186; 87205 ==

== ENCOUNTER 2018-05-07 15:29 | Outpatient (CLI) | payer MEDICARE ==
[2018-05-07 15:53] LABS: BASOPHILS # (AUTO) 0.1 10^3/uL (0.0-0.1); EOSINOPHILS # (AUTO) 0.2 10^3/uL (0.0-0.7); EOSINOPHILS % (AUTO) 2.1 %; LYMPHOCYTES # (AUTO) 1.3 10^3/uL (1.5-3.5); LYMPHOCYTES % (AUTO) 15.9 %; MEAN CORPUSCULAR HEMOGLOBIN 28.3 pg (27.0-31.0); MEAN CORPUSCULAR HGB CONC 32.9 g/dL (32.0-36.0); MEAN PLATELET VOLUME 7.2 fL (7.9-10.8); MONOCYTES # (AUTO) 0.6 10^3/uL (0.0-1.0); MONOCYTES % (AUTO) 7.4 %; NEUTROPHILS % (AUTO) 73.6 %; PLT - PLATELET COUNT 275 10^3/uL (130-450); RED BLOOD COUNT 4.58 10^6/uL (4.20-5.40); RED CELL DISTRIBUTION WIDTH 19.5 % (12.0-15.0); WHITE BLOOD COUNT 8.2 x10^3/uL (4.8-10.8)
[2018-05-07 16:11] LABS: CALCIUM 9.9 mg/dL (8.5-10.3); CREATININE 1.6 mg/dL (0.4-1.0)
== END 2018-05-07 15:30 | disposition home or self-care (01) ==
LOC: LAB 15:29
PROVIDERS: ATTEND Internal Medicine Cardiovascular Disease
DX: I10 Essential (primary) hypertension (principal)
CPT/HCPCS: 36415; 80048; 85025

== ENCOUNTER 2018-05-22 13:56 | Outpatient (CLI) | payer MEDICARE ==
[2018-05-22 14:24] LABS: CALCIUM 9.7 mg/dL (8.5-10.3); CREATININE 1.1 mg/dL (0.4-1.0)
== END 2018-05-22 13:57 | disposition home or self-care (01) ==
LOC: LAB 13:56
PROVIDERS: ATTEND Internal Medicine Cardiovascular Disease
DX: I10 Essential (primary) hypertension (principal)
CPT/HCPCS: 36415; 80048

== ENCOUNTER 2018-06-04 14:14 | Outpatient (CLI) | payer MEDICARE | END 2018-06-04 14:15 | disposition home or self-care (01) | LOC: LAB 14:14 | PROVIDERS: ATTEND Physician Assistant Medical | DX: I48.91 Unspecified atrial fibrillation (principal) | CPT/HCPCS: 85610 ==

== ENCOUNTER 2018-06-08 13:36 | Outpatient (CLI) | payer MEDICARE | END 2018-06-08 13:37 | disposition home or self-care (01) | LOC: LAB 13:36 | PROVIDERS: ATTEND Physician Assistant Medical | DX: I48.91 Unspecified atrial fibrillation (principal) | CPT/HCPCS: 85610 ==

== ENCOUNTER 2018-06-12 10:25 | Outpatient (CLI) | payer MEDICARE ==
[2018-06-12 11:03] LABS: CALCIUM 9.8 mg/dL (8.5-10.3); CREATININE 1.2 mg/dL (0.4-1.0)
== END 2018-06-12 10:26 | disposition home or self-care (01) ==
LOC: LAB 10:25
PROVIDERS: ATTEND Internal Medicine Cardiovascular Disease
DX: I10 Essential (primary) hypertension (principal)
CPT/HCPCS: 36415; 80048

== ENCOUNTER 2018-06-20 12:46 | Outpatient (CLI) | payer MEDICARE | END 2018-06-20 12:47 | disposition home or self-care (01) | LOC: LAB 12:46 | PROVIDERS: ATTEND Physician Assistant Medical | DX: I48.91 Unspecified atrial fibrillation (principal) | CPT/HCPCS: 85610 ==

== ENCOUNTER 2018-06-29 11:39 | Outpatient (CLI) | payer MEDICARE ==
[2018-06-29 12:21] LABS: INR 1.8 (0.8-1.2); PT - PROTHROMBIN TIME 19.5 secs (9.9-12.6)
== END 2018-06-29 11:40 | disposition home or self-care (01) ==
LOC: LAB 11:39
PROVIDERS: ATTEND Physician Assistant Medical
DX: I48.91 Unspecified atrial fibrillation (principal)
CPT/HCPCS: 36415; 85610

== ENCOUNTER 2018-07-13 10:40 | Outpatient (CLI) | payer MEDICARE | END 2018-07-13 10:41 | disposition home or self-care (01) | LOC: LAB 10:40 | PROVIDERS: ATTEND Physician Assistant Medical | DX: I48.91 Unspecified atrial fibrillation (principal) | CPT/HCPCS: 85610 ==

== ENCOUNTER 2018-07-23 11:33 | Outpatient (CLI) | payer MEDICARE ==
[2018-07-23 19:48] LABS: ALBUMIN 4.1 g/dL (3.2-5.5); ALBUMIN/GLOBULIN RATIO 1.5 (1.0-2.2); ALKALINE PHOSPHATASE 75 IU/L (42-121); ALT ALANINE AMINOTRANSFERASE 29 IU/L (10-60); AST ASPARTATE AMINOTRANSFERASE 21 IU/L (10-42); BILIRUBIN,TOTAL 0.6 mg/dL (0.2-1.0); BUN - BLOOD UREA NITROGEN 41 mg/dL (6-20); CALCIUM 10.1 mg/dL (8.5-10.3); CARBON DIOXIDE - CO2 30 mmol/L (21-32); CHLORIDE 101 mmol/L (101-111); CHOL/HDL RATIO 1.9 (<4.4); CHOLESTEROL 141 mg/dL; CREATININE 1.1 mg/dL (0.4-1.0); GFR - MDRD 47 (>89); GLUCOSE 115 mg/dL (70-100); HDL CHOLESTEROL 76 mg/dL; LDL CHOLESTEROL,CALCULATED 54 mg/dL; LDL/HDL RATIO 0.7 (<4.4); SODIUM 138 mmol/L (135-145); TOTAL PROTEIN 6.8 g/dL (6.7-8.2); VLDL CHOLESTEROL 11 mg/dL
== END 2018-07-23 23:59 | disposition home or self-care (01) ==
LOC: LAB.WCP 11:33
PROVIDERS: ATTEND Physician Assistant Medical
DX: E78.5 Hyperlipidemia, unspecified (principal)
CPT/HCPCS: 36415; 80053; 80061; 83721; 84443

== ENCOUNTER 2018-08-01 12:44 | Outpatient (CLI) | payer MEDICARE | END 2018-08-01 12:45 | disposition home or self-care (01) | LOC: LAB 12:44 | PROVIDERS: ATTEND Physician Assistant Medical | DX: I48.91 Unspecified atrial fibrillation (principal) | CPT/HCPCS: 85610 ==

== ENCOUNTER 2018-08-30 14:08 | Outpatient (CLI) | payer MEDICARE | END 2018-08-30 14:09 | disposition home or self-care (01) | LOC: LAB 14:08 | PROVIDERS: ATTEND Physician Assistant Medical | DX: I48.91 Unspecified atrial fibrillation (principal) | CPT/HCPCS: 85610 ==

== ENCOUNTER 2018-09-12 13:46 | Outpatient (CLI) | payer MEDICARE | END 2018-09-12 13:47 | disposition home or self-care (01) | LOC: LAB 13:46 | PROVIDERS: ATTEND Physician Assistant Medical | DX: I48.91 Unspecified atrial fibrillation (principal) | CPT/HCPCS: 85610 ==

== ENCOUNTER 2018-09-26 12:43 | Outpatient (CLI) | payer MEDICARE | END 2018-09-26 12:44 | disposition home or self-care (01) | LOC: LAB 12:43 | PROVIDERS: ATTEND Physician Assistant Medical | DX: I48.91 Unspecified atrial fibrillation (principal) | CPT/HCPCS: 85610 ==

== ENCOUNTER 2018-10-08 11:29 | Outpatient (CLI) | payer MEDICARE | END 2018-10-08 11:30 | disposition home or self-care (01) | LOC: LAB 11:29 | PROVIDERS: ATTEND Physician Assistant Medical | DX: I48.91 Unspecified atrial fibrillation (principal) | CPT/HCPCS: 85610 ==

== ENCOUNTER 2018-10-18 12:13 | Outpatient (CLI) | payer MEDICARE | END 2018-10-18 12:14 | disposition home or self-care (01) | LOC: LAB 12:13 | PROVIDERS: ATTEND Physician Assistant Medical | DX: I48.91 Unspecified atrial fibrillation (principal) | CPT/HCPCS: 85610 ==

== ENCOUNTER 2018-10-30 12:40 | Outpatient (CLI) | payer MEDICARE | END 2018-10-30 12:41 | disposition home or self-care (01) | LOC: LAB 12:40 | PROVIDERS: ATTEND Physician Assistant Medical | DX: I48.91 Unspecified atrial fibrillation (principal) | CPT/HCPCS: 85610 ==

== ENCOUNTER 2018-11-06 11:13 | Outpatient (CLI) | payer MEDICARE | END 2018-11-06 11:14 | disposition home or self-care (01) | LOC: LAB 11:13 | PROVIDERS: ATTEND Physician Assistant Medical | DX: I48.91 Unspecified atrial fibrillation (principal) | CPT/HCPCS: 85610 ==

== ENCOUNTER 2018-11-08 15:26 | Outpatient (CLI) | payer MEDICARE ==
--- NOTE | 2018-11-08 16:20 | XRAY Report ---
Reason: COPD Procedure Date: 11/08/2018 Accession Number: [id number] / [id number] Procedure: WCP - Chest 2 View X-Ray CPT Code: 94582 FULL RESULT: EXAM: CHEST RADIOGRAPHY EXAM DATE: 11/08/2018 03:51 PM. CLINICAL HISTORY: COPD. COMPARISON: CHEST 2 VIEW PA/LAT 03/25/2016 3:12 PM. TECHNIQUE: 2 views. FINDINGS: Lungs/Pleura: No focal opacities evident. No pleural effusion. No pneumothorax. Normal volumes. Mediastinum: Heart size is upper limits of normal and slightly increased from comparison. Ectasia and tortuosity is noted of the thoracic aorta not significantly changed. Other: None. IMPRESSION: No radiographic evidence of acute cardiopulmonary disease. RADIA
== END 2018-11-08 15:27 | disposition home or self-care (01) ==
LOC: DI.WCP 15:26
PROVIDERS: ATTEND Physician Assistant Medical
DX: J44.9 Chronic obstructive pulmonary disease, unspecified (principal)
CPT/HCPCS: 71046

== ENCOUNTER 2018-11-13 10:22 | Outpatient (CLI) | payer MEDICARE | END 2018-11-13 10:23 | disposition home or self-care (01) | LOC: LAB 10:22 | PROVIDERS: ATTEND Physician Assistant Medical | DX: I48.91 Unspecified atrial fibrillation (principal) | CPT/HCPCS: 85610 ==

== ENCOUNTER 2018-11-15 11:25 | Outpatient (CLI) | payer MEDICARE | END 2018-11-15 11:26 | disposition home or self-care (01) | LOC: LAB 11:25 | PROVIDERS: ATTEND Physician Assistant Medical | DX: I48.91 Unspecified atrial fibrillation (principal) | CPT/HCPCS: 85610 ==

== ENCOUNTER 2018-11-20 14:51 | Outpatient (CLI) | payer MEDICARE ==
--- NOTE | 2018-11-21 12:32 | Ultrasound Report ---
Reason: EDEMA Procedure Date: 11/20/2018 Accession Number: [id number] / [id number] Procedure: US - Ankle Brachial Index CPT Code: FULL RESULT: EXAM: BILATERAL ANKLE/BRACHIAL INDEX EXAM DATE: 11/20/2018 04:14 PM. CLINICAL HISTORY: Edema. COMPARISON: None. TECHNIQUE: A blood pressure cuff and pulse volume recording Doppler ultrasound was used to evaluate the arterial pressures in the arms and ankle. No images were acquired. FINDINGS: Brachial pressure: Right brachial artery: 120/91 mmHg. Left brachial artery: 140/96 mmHg. Right ankle pressures: 153/93 mmHg. Posterior tibial artery: Patent biphasic waveform 13 cm/s. Right dorsalis pedis artery: Patent triphasic waveform 72 cm/s. Left ankle pressures: 149/103 mmHg. Posterior tibial artery: Patent biphasic waveform 27 cm/s. Left dorsalis pedis artery: Patent biphasic waveform 26 cm/s. IMPRESSION: 1. Right ankle/brachial index: 1.3. 2. Left ankle/brachial index: 1.1. Normal bilateral ankle/brachial indices. ANKLE/BRACHIAL INDEX REFERENCE STANDARDS 1.0-1.4: Normal 0.90-0.99: Borderline < 0.9: Abnormal RADIA
== END 2018-11-20 14:52 | disposition home or self-care (01) ==
LOC: DI 14:51
PROVIDERS: ATTEND Physician Assistant Medical
DX: R60.9 Edema, unspecified (principal)
CPT/HCPCS: 93922

== ENCOUNTER 2018-11-22 08:00 | Outpatient (CLI) | payer MEDICARE | END 2018-11-22 23:59 | disposition home or self-care (01) | LOC: LAB.WCP 08:00 | PROVIDERS: ATTEND Physician Assistant Medical | DX: I48.91 Unspecified atrial fibrillation (principal); Z79.01 Long term (current) use of anticoagulants | CPT/HCPCS: 81025 ==

== ENCOUNTER 2018-12-06 14:38 | Outpatient (CLI) | payer MEDICARE ==
[2018-12-06 18:47] LABS: BASOPHILS # (AUTO) 0.1 10^3/uL (0.0-0.1); EOSINOPHILS # (AUTO) 0.1 10^3/uL (0.0-0.7); EOSINOPHILS % (AUTO) 1.9 %; HGB - HEMOGLOBIN 14.8 g/dL (12.0-16.0); LYMPHOCYTES % (AUTO) 28.4 %; MEAN CORPUSCULAR HEMOGLOBIN 29.6 pg (27.0-31.0); MEAN CORPUSCULAR HGB CONC 32.3 g/dL (32.0-36.0); MEAN CORPUSCULAR VOLUME 91.6 fL (81.0-99.0); MONOCYTES # (AUTO) 0.7 10^3/uL (0.0-1.0); MONOCYTES % (AUTO) 9.3 %; NEUTROPHILS # (AUTO) 4.2 10^3/uL (1.5-6.6); NEUTROPHILS % (AUTO) 59.4 %; PLT - PLATELET COUNT 260 10^3/uL (130-450); RED BLOOD COUNT 5.01 10^6/uL (4.20-5.40); RED CELL DISTRIBUTION WIDTH 17.2 % (12.0-15.0)
[2018-12-06 19:08] LABS: ALBUMIN 4.4 g/dL (3.2-5.5); ALBUMIN/GLOBULIN RATIO 1.8 (1.0-2.2); ALKALINE PHOSPHATASE 49 IU/L (42-121); ALT ALANINE AMINOTRANSFERASE 21 IU/L (10-60); AST ASPARTATE AMINOTRANSFERASE 22 IU/L (10-42); BILIRUBIN,TOTAL 0.9 mg/dL (0.2-1.0); BUN - BLOOD UREA NITROGEN 27 mg/dL (6-20); CALCIUM 10.3 mg/dL (8.5-10.3); CARBON DIOXIDE - CO2 28 mmol/L (21-32); CHLORIDE 103 mmol/L (101-111); CHOL/HDL RATIO 2.3 (<4.4); CHOLESTEROL 179 mg/dL; CREATININE 1.1 mg/dL (0.4-1.0); GFR - MDRD 47 (>89); GLUCOSE 99 mg/dL (70-100); HDL CHOLESTEROL 77 mg/dL; LDL CHOLESTEROL,CALCULATED 87 mg/dL; LDL/HDL RATIO 1.1 (<4.4); SODIUM 140 mmol/L (135-145); TOTAL PROTEIN 6.9 g/dL (6.7-8.2); VLDL CHOLESTEROL 15 mg/dL
== END 2018-12-06 23:59 ==
LOC: LAB.WCP 14:38
PROVIDERS: ATTEND Physician Assistant Medical
DX: E78.5 Hyperlipidemia, unspecified (principal); J44.9 Chronic obstructive pulmonary disease, unspecified
CPT/HCPCS: 36415; 80053; 80061; 83721; 85025

== ENCOUNTER 2019-01-03 11:20 | Outpatient (CLI) | payer MEDICARE | END 2019-01-03 11:21 | disposition home or self-care (01) | LOC: LAB 11:20 | PROVIDERS: ATTEND Physician Assistant Medical | DX: I48.91 Unspecified atrial fibrillation (principal) | CPT/HCPCS: 85610 ==

== ENCOUNTER 2019-01-07 13:32 | Outpatient (CLI) | payer MEDICARE | END 2019-01-07 13:33 | disposition home or self-care (01) | LOC: LAB 13:32 | PROVIDERS: ATTEND Physician Assistant Medical | DX: I48.91 Unspecified atrial fibrillation (principal) | CPT/HCPCS: 85610 ==

== ENCOUNTER 2019-01-10 16:29 | Outpatient (CLI) | payer MEDICARE ==
--- NOTE | 2019-01-11 10:14 | Mammography Report ---
Reason: ANNUAL SCREENING Procedure Date: 01/10/2019 Accession Number: [id number] / [id number] Procedure: CHIKIS - Screening Mammo Dig Bilat CPT Code: FULL RESULT: EXAM: Screening Mammo Dig Bilat DATE: 01/10/2019 4:49 PM CLINICAL HISTORY: Screening encounter. No reported risk factors. TECHNIQUE: (B) - Bilateral CC and MLO views were obtained. COMPARISON: 11/28/2017 through 11/17/2011. PARENCHYMAL PATTERN: (A) - The breast(s) demonstrate(s) scattered fibroglandular densities. FINDINGS: There are coarse typically benign calcifications. There are no suspicious masses, calcifications, or areas of distortion. IMPRESSION: Benign findings. BI-RADS category 2. RECOMMENDATION: (ANNUAL) - Recommend routine annual screening mammography. BI-RADS CATEGORY: (2) - Benign Findings. STANDARD QUALIFYING STATEMENTS: 1. This examination was not reviewed with the aid of Computer-Aided Detection (CAD). 2. A negative or benign imaging report should not preclude biopsy if clinically suspicious findings are present. 3. Dense breasts may obscure an underlying neoplasm. 4. This examination was reviewed without the aid of 3D breast imaging (tomosynthesis).
== END 2019-01-10 16:30 | disposition home or self-care (01) ==
LOC: DI 16:29
DX: Z12.31 Encounter for screening mammogram for malignant neoplasm of breast (principal)
CPT/HCPCS: 77067

== ENCOUNTER 2019-01-11 14:07 | Outpatient (CLI) | payer MEDICARE | END 2019-01-11 14:08 | disposition home or self-care (01) | LOC: LAB 14:07 | PROVIDERS: ATTEND Physician Assistant Medical | DX: I48.91 Unspecified atrial fibrillation (principal) | CPT/HCPCS: 85610 ==

== ENCOUNTER 2019-01-15 11:11 | Outpatient (CLI) | payer MEDICARE | END 2019-01-15 11:12 | disposition home or self-care (01) | LOC: LAB 11:11 | PROVIDERS: ATTEND Physician Assistant Medical | DX: I48.91 Unspecified atrial fibrillation (principal) | CPT/HCPCS: 85610 ==

== ENCOUNTER 2019-01-17 13:16 | Outpatient (CLI) | payer MEDICARE ==
--- NOTE | 2019-01-17 14:49 | DEXA Report ---
Reason: DONE DISEASE Procedure Date: 01/17/2019 Accession Number: [id number] / [id number] Procedure: DEX - Dexa Spine and/or Hip CPT Code: FULL RESULT: EXAM: Dexa Spine and/or Hip DATE: 01/17/2019 2:12 PM CLINICAL HISTORY: Postmenopausal female TECHNIQUE: Dual energy x-ray absorptiometry (DXA) was performed on a [employer] System. Regions measured are the AP Spine, femoral neck, and if needed forearm. COMPARISON: 11/03/2016 In accordance with the International Society for Clinical Densitometry (ISCD) guidelines, data from previous exams may be reanalyzed using current recommendations and techniques. This is done to allow a more accurate basis for comparison with the current study. FINDINGS: The data for the lumbar spine is as follows: BMD (g/cm/cm) T-SCORE Z-SCORE REGION L1 0.984 -1.2 -0.3 L2 1.091 -0.9 0.0 L3 1.193 -0.1 0.8 L4 1.181 -0.2 0.7 TOTAL 1.124 -0.5 0.4 NOTE: All evaluable vertebrae are used for classification The data for the hip is as follows: BMD (g/cm/cm) T-SCORE Z-SCORE REGION Neck 0.780 -1.9 -0.1 TOTAL 0.745 -2.1 -0.5 NOTE: The femoral neck or total proximal femur, whichever is lowest, is used for classification. DXA RESULTS SUMMARY: Spine SCAN DATE AGE BMD CHANGE VS CHANGE VS PREVIOUS PREVIOUS % [birth year][age][birth year]/2019 [age] 1.124 0.045* 4.2* 11/03/2016 [age] 1.079 * Denotes significant change at the 95% confidence level. Denotes dissimilar scan types or analysis methods. DXA RESULTS SUMMARY: Hip SCAN DATE AGE BMD CHANGE VS CHANGE VS PREVIOUS PREVIOUS % [birth year][age]17/2019 [age] 0.745 -0.132* -15.1* 11/03/2016 81.6 0.877 * Denotes significant change at the 95% confidence level. Denotes dissimilar scan types or analysis methods. IMPRESSION: THE WHO CLASSIFICATION BASED ON THE INTERNATIONAL REFERENCE STANDARD IS OSTEOPENIA, REFERENCE LEFT HIP TOTAL BONE MINERAL DENSITY. THE FRACTURE RISK IS INCREASED. RECOMMENDATION: Patients with diagnosis of osteoporosis or osteopenia should have regular bone mineral density assessment. For those eligible for Medicare, routine testing is allowed once every 2 years. Testing frequency can be increased for patients who have rapidly progressing disease or for those who are receiving medical therapy to restore bone mass. COMMENT: World Health Organization (WHO) definitions for osteoporosis and osteopenia: NORMAL BMD: T-score at -1.0 or higher, fracture risk is low OSTEOPENIA BMD: T-score between -1.0 and -2.5, fracture risk is increased. OSTEOPOROSIS BMD: T-score at -2.5 or lower, fracture risk is high. National Osteoporosis Foundation recommends: 1. Obtain adequate dietary calcium (at least 1200 mg per day) and vitamin D (400-800 international units per day). 2. Participate, as appropriate, in regular weightbearing and muscle-strengthening exercise. 3. Avoid tobacco use and reduce alcohol and caffeine intake. 4. For more detailed information see the website at www.NOF.org.
== END 2019-01-17 13:17 | disposition home or self-care (01) ==
LOC: DI 13:16
PROVIDERS: ATTEND Physician Assistant Medical
DX: M85.88 Other specified disorders of bone density and structure, other site (principal)
CPT/HCPCS: 77080

== ENCOUNTER 2019-01-21 13:20 | Outpatient (CLI) | payer MEDICARE | END 2019-01-21 13:21 | disposition home or self-care (01) | LOC: LAB 13:20 | PROVIDERS: ATTEND Physician Assistant Medical | DX: I48.91 Unspecified atrial fibrillation (principal) | CPT/HCPCS: 85610 ==

== ENCOUNTER 2019-01-28 10:29 | Outpatient (CLI) | payer MEDICARE | END 2019-01-28 23:59 | disposition home or self-care (01) | LOC: LAB 10:29 | PROVIDERS: ATTEND Physician Assistant Medical | DX: I48.91 Unspecified atrial fibrillation (principal) | CPT/HCPCS: 85610 ==

== ENCOUNTER 2019-01-31 12:11 | Outpatient (CLI) | payer MEDICARE ==
[2019-01-31 19:15] LABS: BILIRUBIN,URINE NEGATIVE (NEGATIVE); GLUCOSE, URINE (UA) NEGATIVE (NEGATIVE); KETONES,URINE (UA) NEGATIVE (NEGATIVE); LEUKOCYTE ESTERASE, URINE NEGATIVE (NEGATIVE); NITRITE,URINE NEGATIVE (NEGATIVE); OCCULT BLOOD,URINE NEGATIVE (NEGATIVE); PH,URINE 5.5 PH (5.0-7.5); PROTEIN,URINE NEGATIVE (NEGATIVE); UROBILINOGEN,URINE 0.2 (NORMAL) E.U./dL (NORMAL)
[2019-01-31 19:19] LABS: CALCIUM 9.9 mg/dL (8.5-10.3); CLARITY,URINE CLEAR (CLEAR)
[2019-01-31 19:22] LABS: BASOPHILS # (AUTO) 0.1 10^3/uL (0.0-0.1); BASOPHILS % (AUTO) 1.3 %; EOSINOPHILS # (AUTO) 0.2 10^3/uL (0.0-0.7); EOSINOPHILS % (AUTO) 3.2 %; HGB - HEMOGLOBIN 14.4 g/dL (12.0-16.0); LYMPHOCYTES # (AUTO) 1.6 10^3/uL (1.5-3.5); LYMPHOCYTES % (AUTO) 26.5 %; MEAN CORPUSCULAR HEMOGLOBIN 30.7 pg (27.0-31.0); MEAN CORPUSCULAR HGB CONC 32.6 g/dL (32.0-36.0); MEAN CORPUSCULAR VOLUME 94.1 fL (81.0-99.0); MONOCYTES # (AUTO) 0.4 10^3/uL (0.0-1.0); MONOCYTES % (AUTO) 7.1 %; NEUTROPHILS # (AUTO) 3.7 10^3/uL (1.5-6.6); NEUTROPHILS % (AUTO) 61.9 %; PLT - PLATELET COUNT 261 10^3/uL (130-450); RED CELL DISTRIBUTION WIDTH 16.1 % (12.0-15.0); WHITE BLOOD COUNT 5.9 x10^3/uL (4.8-10.8)
[2019-01-31 19:26] LABS: INR 2.6 (0.8-1.2); PT - PROTHROMBIN TIME 29.3 secs (9.9-12.6)
[2019-01-31 19:35] LABS: PARTIAL THROMBOPLASTIN TIME 41.8 secs (24.9-33.3)
[2019-02-01 19:15] LABS: HB2 TOTAL 15.9 g/dL; HEMOGLOBIN A1C 0.63 g/dL; HEMOGLOBIN A1C % 5.8 % (4.6-6.2)
== END 2019-01-31 12:12 | disposition home or self-care (01) ==
LOC: LAB.WCP 12:11
PROVIDERS: ATTEND Physician Assistant Medical
DX: I10 Essential (primary) hypertension (principal); K92.2 Gastrointestinal hemorrhage, unspecified
CPT/HCPCS: 36415; 80048; 81001; 81003; 81599; 83036; 85025; 85610; 85730; 87086

== ENCOUNTER 2019-02-11 08:00 | Outpatient (CLI) | payer MEDICARE | END 2019-02-11 23:59 | disposition home or self-care (01) | LOC: LAB 08:00 | PROVIDERS: ATTEND Physician Assistant Medical | DX: I48.91 Unspecified atrial fibrillation (principal) | CPT/HCPCS: 85610 ==

== ENCOUNTER 2019-04-01 16:02 | Outpatient (CLI) | payer MEDICARE | END 2019-04-01 16:03 | disposition home or self-care (01) | LOC: LAB 16:02 | PROVIDERS: ATTEND Physician Assistant Medical | DX: I48.91 Unspecified atrial fibrillation (principal) | CPT/HCPCS: 85610 ==

== ENCOUNTER 2019-04-02 08:00 | Outpatient (CLI) | payer MEDICARE | END 2019-04-02 23:59 | disposition home or self-care (01) | LOC: LAB.WCP 08:00 | PROVIDERS: ATTEND Physician Assistant Medical | DX: I48.91 Unspecified atrial fibrillation (principal); Z79.01 Long term (current) use of anticoagulants ==

== ENCOUNTER 2019-04-15 13:36 | Outpatient (CLI) | payer MEDICARE | END 2019-04-15 13:37 | disposition home or self-care (01) | LOC: LAB 13:36 | PROVIDERS: ATTEND Physician Assistant Medical | DX: I48.91 Unspecified atrial fibrillation (principal) | CPT/HCPCS: 85610 ==

== ENCOUNTER 2019-05-02 09:22 | Outpatient (CLI) | payer MEDICARE ==
[2019-05-02 12:45] LABS: CALCIUM 9.7 mg/dL (8.5-10.3)
== END 2019-05-02 23:59 ==
LOC: LAB.WCP 09:22
PROVIDERS: ATTEND Physician Assistant Medical
DX: R60.9 Edema, unspecified (principal)
CPT/HCPCS: 36415; 80048

== ENCOUNTER 2019-05-02 14:41 | Outpatient (CLI) | payer MEDICARE ==
--- NOTE | 2019-05-02 21:58 | Ultrasound Report ---
Reason: EDEMA Procedure Date: 05/02/2019 Accession Number: [id number] / [id number] Procedure: US - Duplex Ext Veins Bilateral CPT Code: FULL RESULT: EXAM: BILATERAL LOWER EXTREMITY VENOUS ULTRASOUND EXAM DATE: 05/02/2019 04:10 PM. CLINICAL HISTORY: EDEMA. COMPARISON: None. TECHNIQUE: Real-time sonographic vascular imaging was performed by the dough sheeter through the lower extremities utilizing both color-flow and Doppler spectral analysis. Multiple admissions representative static images were saved for review. FINDINGS: Right: Common Femoral Vein (CFV): Normal. CFV-GSV Junction: Normal. Profunda Femoral Vein (PFV): Normal. Femoral Vein (FV) Prox: Normal. Femoral Vein (FV) Mid: Normal. Femoral Vein (FV) Dist: Limited visualization. Popliteal Vein: Normal. Posterior Tibial Veins: Limited visualization. Peroneal Veins: Not visualized. Left: Common Femoral Vein (CFV): Normal. CFV-GSV Junction: Normal. Profunda Femoral Vein (PFV): Normal. Femoral Vein (FV) Prox: Normal. Femoral Vein (FV) Mid: Normal. Femoral Vein (FV) Dist: Limited visualization. Popliteal Vein: Limited visualization. Posterior Tibial Veins: Limited visualization. Peroneal Veins: Not visualized. Other: Bilateral lower extremity soft tissue edema. Bilateral popliteal fossa cysts. On the right hip measures approximately 3 x 1.2 x 2.5 cm. On the left this measures approximately 2.3 x 0.9 x 1.4 cm. IMPRESSION: 1. No sonographic evidence of DVT in the visualized portions of the bilateral lower extremities, as described. 2. Bilateral popliteal fossa cyst. RADIA
== END 2019-05-02 14:42 | disposition home or self-care (01) ==
LOC: DI 14:41
PROVIDERS: ATTEND Physician Assistant Medical
DX: R60.9 Edema, unspecified (principal); M71.22 Synovial cyst of popliteal space [Baker], left knee; M71.21 Synovial cyst of popliteal space [Baker], right knee
CPT/HCPCS: 36415; 80048; 93970

== ENCOUNTER 2019-05-13 13:04 | Outpatient (CLI) | payer MEDICARE | END 2019-05-13 13:05 | disposition home or self-care (01) | LOC: LAB 13:04 | PROVIDERS: ATTEND Physician Assistant Medical | DX: I48.91 Unspecified atrial fibrillation (principal) | CPT/HCPCS: 85610 ==

== ENCOUNTER 2019-05-15 08:00 | Outpatient (CLI) | payer MEDICARE | END 2019-05-15 23:59 | disposition home or self-care (01) | LOC: LAB.R 08:00 | PROVIDERS: ATTEND Physician Assistant Medical | DX: S81.812A Laceration without foreign body, left lower leg, initial encounter (principal) | CPT/HCPCS: 87070; 87077; 87181; 87205 ==

== ENCOUNTER 2019-05-28 11:22 | Outpatient (CLI) | payer MEDICARE ==
[2019-05-28 18:59] LABS: CALCIUM 10.1 mg/dL (8.5-10.3); CREATININE 1.2 mg/dL (0.4-1.0)
== END 2019-05-28 23:59 | disposition home or self-care (01) ==
LOC: LAB.WCP 11:22
PROVIDERS: ATTEND Physician Assistant Medical
DX: R60.9 Edema, unspecified (principal); Z79.01 Long term (current) use of anticoagulants; I48.91 Unspecified atrial fibrillation
CPT/HCPCS: 36415; 80048

== ENCOUNTER 2019-06-07 15:23 | Outpatient (CLI) | payer MEDICARE | END 2019-06-07 15:24 | disposition home or self-care (01) | LOC: LAB 15:23 | PROVIDERS: ATTEND Physician Assistant Medical | DX: I48.91 Unspecified atrial fibrillation (principal) | CPT/HCPCS: 85610 ==

== ENCOUNTER 2019-06-18 12:25 | Outpatient (CLI) | payer MEDICARE | END 2019-06-18 12:26 | disposition home or self-care (01) | LOC: LAB 12:25 | PROVIDERS: ATTEND Physician Assistant Medical | DX: I48.91 Unspecified atrial fibrillation (principal) | CPT/HCPCS: 85610 ==

== ENCOUNTER 2019-07-04 14:04 | Outpatient (CLI) | payer MEDICARE | END 2019-07-04 14:05 | disposition home or self-care (01) | LOC: LAB 14:04 | PROVIDERS: ATTEND Physician Assistant Medical | DX: I48.91 Unspecified atrial fibrillation (principal) | CPT/HCPCS: 85610 ==

== ENCOUNTER 2019-07-22 11:50 | Outpatient (CLI) | payer MEDICARE | END 2019-07-22 11:51 | disposition home or self-care (01) | LOC: LAB 11:50 | PROVIDERS: ATTEND Physician Assistant Medical | DX: I48.91 Unspecified atrial fibrillation (principal) | CPT/HCPCS: 85610 ==

== ENCOUNTER 2019-08-13 13:25 | Outpatient (CLI) | payer MEDICARE | END 2019-08-13 13:26 | disposition home or self-care (01) | LOC: LAB 13:25 | PROVIDERS: ATTEND Physician Assistant Medical | DX: I48.91 Unspecified atrial fibrillation (principal) | CPT/HCPCS: 85610 ==

== ENCOUNTER 2019-09-05 12:35 | Outpatient (CLI) | payer MEDICARE | END 2019-09-05 12:36 | disposition home or self-care (01) | LOC: LAB 12:35 | PROVIDERS: ATTEND Physician Assistant Medical | DX: I48.91 Unspecified atrial fibrillation (principal) | CPT/HCPCS: 85610 ==

== ENCOUNTER 2019-10-08 10:42 | Outpatient (CLI) | payer MEDICARE ==
[2019-10-08 11:16] LABS: BASOPHILS % (AUTO) 0.3 %; EOSINOPHILS # (AUTO) 0.3 10^3/uL (0.0-0.7); EOSINOPHILS % (AUTO) 4.3 %; HGB - HEMOGLOBIN 15.1 g/dL (12.0-16.0); MEAN CORPUSCULAR HEMOGLOBIN 29.8 pg (27.0-31.0); MEAN CORPUSCULAR HGB CONC 32.3 g/dL (32.0-36.0); MEAN CORPUSCULAR VOLUME 92.3 fL (81.0-99.0); MEAN PLATELET VOLUME 9.6 fL (7.9-10.8); MONOCYTES # (AUTO) 0.6 10^3/uL (0.0-1.0); MONOCYTES % (AUTO) 7.5 %; NEUTROPHILS # (AUTO) 4.9 10^3/uL (1.5-6.6); NEUTROPHILS % (AUTO) 62.5 %; PLT - PLATELET COUNT 250 10^3/uL (130-450); RED BLOOD COUNT 5.07 10^6/uL (4.20-5.40); RED CELL DISTRIBUTION WIDTH 15.3 % (12.0-15.0); WHITE BLOOD COUNT 7.9 x10^3/uL (4.8-10.8)
[2019-10-08 11:37] LABS: ALBUMIN 4.1 g/dL (3.2-5.5); ALBUMIN/GLOBULIN RATIO 1.4 (1.0-2.2); ALKALINE PHOSPHATASE 55 IU/L (42-121); ALT ALANINE AMINOTRANSFERASE 32 IU/L (10-60); AST ASPARTATE AMINOTRANSFERASE 25 IU/L (10-42); BILIRUBIN,TOTAL 1.1 mg/dL (0.2-1.0); BUN - BLOOD UREA NITROGEN 35 mg/dL (6-20); CALCIUM 10.1 mg/dL (8.5-10.3); CARBON DIOXIDE - CO2 26 mmol/L (21-32); CHLORIDE 104 mmol/L (101-111); CHOL/HDL RATIO 1.8 (<4.4); CHOLESTEROL 134 mg/dL; CREATININE 1.3 mg/dL (0.4-1.0); GFR - MDRD 39 (>89); GLUCOSE 108 mg/dL (70-100); HDL CHOLESTEROL 75 mg/dL; LDL CHOLESTEROL,CALCULATED 42 mg/dL; LDL/HDL RATIO 0.6 (<4.4); SODIUM 139 mmol/L (135-145); VLDL CHOLESTEROL 17 mg/dL
== END 2019-10-08 10:43 | disposition home or self-care (01) ==
LOC: LAB 10:42
PROVIDERS: ATTEND Physician Assistant Medical
DX: E78.5 Hyperlipidemia, unspecified (principal); E03.9 Hypothyroidism, unspecified; K92.2 Gastrointestinal hemorrhage, unspecified; I48.91 Unspecified atrial fibrillation
CPT/HCPCS: 36415; 80053; 80061; 83721; 84443; 85025; 85610

== ENCOUNTER 2019-10-14 14:13 | Outpatient (CLI) | payer MEDICARE | END 2019-10-14 14:14 | disposition home or self-care (01) | LOC: LAB 14:13 | PROVIDERS: ATTEND Physician Assistant Medical | DX: I48.91 Unspecified atrial fibrillation (principal) | CPT/HCPCS: 85610 ==

== ENCOUNTER 2019-10-26 16:45 | Outpatient (CLI) | payer MEDICARE | END 2019-10-26 16:46 | disposition critical access hospital (66) | LOC: EMS 16:45 | PROVIDERS: ATTEND Surgery | DX: S09.90XA Unspecified injury of head, initial encounter (principal); W18.39XA Other fall on same level, initial encounter; Y92.039 Unspecified place in apartment as the place of occurrence of the external cause | CPT/HCPCS: A0425; A0429 ==

== ENCOUNTER 2019-10-26 16:51 | Emergency (ER) | payer MEDICARE ==
--- NOTE | 2019-10-26 17:00 | ED Physician Documentation ---
PD HPI HEAD INJURY - Stated complaint Stated Complaint: GLF - History obtained from History obtained from: Patient, Family, EMS - History of Present Illness Mechanism of head injury: Fell Where head injury occurred: Home Timing - onset: Today Location of injury: Top Quality of pain: Pain Associated symptoms: No: LOC, AMS, Amnesia, Nausea / vomiting, Neck pain, Paresthesias, Seizures, Ear drainage, Nasal drainage Symptoms improve with: Rest Symptoms worsen with: Palpation Contributing factors: Anticoagulated Similar symptoms before: Has not had sx before Recently seen: Not recently seen - Additional information Additional information: 84-year-old female with a history of atrial fibrillation is on Coumadin. She was sitting in her easy chair taking a nap this afternoon when her friend Tana came over. She stood up from her easy chair too quickly and fell over backwards striking the top of her head. She did not have any loss of consciou sness she is on Coumadin and she is come to the emergency department by ambulance now for evaluation. She did not have any bleeding associated with this she denies any loss of conscious denies any nausea denies any pain in her neck. She denies any numbness or tingling.She reports she was feeling entirely well today and recently. Review of Systems Constitutional: denies: Fever Eyes: denies: Decreased vision Ears: denies: Ear pain Nose: denies: Rhinorrhea / runny nose, Congestion Throat: denies: Sore throat Cardiac: denies: Chest pain / pressure, Palpitations Respiratory: denies: Dyspnea, Cough GI: denies: Abdominal Pain, Nausea, Vomiting : denies: Dysuria Skin: denies: Rash Musculoskeletal: denies: Neck pain, Back pain, Extremity pain Neurologic: reports: Head injury. denies: Generalized weakness, Focal weakness, Numbness, Difficulty speaking, Headache, LOC PD PAST MEDICAL HISTORY - Past Medical History Cardiovascular: Hypertension, Atrial fibrillation Respiratory: COPD Endocrine/Autoimmune: HyPOthyroidism GI: Chronic constipation : Frequency HEENT: None Psych: None Musculoskeletal: Osteoporosis Derm: None - Past Surgical History Past Surgical History: Yes General: Other - Present Medications Home Medications: Ambulatory Orders Medication Instructions Recorded Confirmed Atenolol 50 mg PO QPM 12/21/12 04/10/18 Levothyroxine Sodium [Levothroid] 100 mcg PO QDAC 12/21/12 04/10/18 Tiotropium [Spiriva] 1 puffs INH DAILY 12/21/12 04/10/18 Budesonide/Formoterol Fumarate 2 puffs ORAL BID 04/11/17 04/10/18 [Symbicort 160-4.5 Mcg Inhaler] Spironolactone 25 mg PO BID 09/05/17 04/10/18 Apixaban [Eliquis] 1 tab PO DAILY 04/10/18 04/10/18 Acetaminophen [Tylenol] 1 tab PO Q6HR 05/16/18 05/16/18 Calcium Carbonate/Vitamin D3 1 tab PO DAILY 05/16/18 05/16/18 [Calcium 500 mg-Vit D3 600 Unit] Cholecalciferol (Vitamin D3) 2 cap PO DAILY 05/16/18 05/16/18 [Vitamin D3] Cyclobenzaprine [Flexeril] 0.5 tab PO TID PRN 05/16/18 05/16/18 Magnesium Oxide [Magnesium] 400 mg PO DAILY 05/16/18 05/16/18 Meloxicam 1 tab PO BID PRN 05/16/18 05/16/18 Mometasone/Formoterol [Dulera 200 2 puffs PO BID 05/16/18 05/16/18 Mcg/5 Mcg Inhaler] [place]-3S/Dha/Epa/Fish Oil [Fish 1 cap PO DAILY 05/16/18 05/16/18 Oil [place]-3 Softgel] Ubidecarenone [Co Q-10] 400 mg PO DAILY 05/16/18 05/16/18 Zoledronic Acid/Mannitol&Water 1 applic IM ONCE 05/16/18 05/16/18 [Reclast 5 mg/100 ml Solution] - Allergies Allergies/Adverse Reactions: Allergies Allergy/AdvReac Type Severity Reaction Status Date / Time No Known Drug Allergies Allergy Verified 10/26/19 17:17 - Social History Does the pt smoke?: No Smoking Status: Former smoker Does the pt drink ETOH?: Yes Does the pt have substance abuse?: No - Immunizations Immunizations are current?: Yes - POLST Patient has POLST: Yes POLST Status: DNR (Patient states she has not filled out a POLST however wishes to have DO NOT RESUSCITATE order status) PD ED PE NORMAL - Vitals Vital signs reviewed: Yes - General General: Alert and oriented X 3, No acute distress, Well developed/nourished - HEENT HEENT: PERRL, EOMI, Other (There is a hematoma to the scalp on the left parietal area) - Neck Neck: Supple, no meningeal sign, No bony TTP - Cardiac Cardiac: Other (irregularly irregular rate and rythm with 2/6 holosystolic at LSb) - Respiratory Respiratory: No respiratory distress, Clear bilaterally - Abdomen Abdomen: Soft, Non tender - Back Back: No CVA TTP, No spinal TTP - Derm Derm: Normal color, Warm and dry, No rash - Extremities Extremities: No deformity, Normal ROM s pain, No calf tenderness / cord, Other (edema to the calves bilat) - Neuro Neuro: Alert and oriented X 3, storekeeper helper 2-12 intact, No motor deficit, No sensory deficit, Normal speech Eye Opening: Spontaneous Motor: Obeys Commands Verbal: Oriented GCS Score: 15 - Psych Psych: Normal mood, Normal affect Results - Vitals Vitals: Vital Signs - 24 hr 10/26/19 10/26/19 10/26/19 17:08 17:17 19:37 Temperature 36.9 C 37 C Heart Rate 80 82 75 Respiratory 16 18 14 Rate Blood Pressure 144/99 H 117/76 99/66 O2 Saturation 99 99 100 10/26/19 20:35 Temperature 36.3 C L Heart Rate 71 Respiratory 18 Rate Blood Pressure 131/87 H O2 Saturation 98 Oxygen O2 Source Room air - Labs Labs: Laboratory Tests 10/26/19 17:42 PT 36.4 H INR 3.4 H - Rads (name of study) CT head w/o Radiology: Prelim report reviewed (Impression: 1. Along the posterior aspect of the left interhemispheric falx is a region of hyperattenuation measuring 4 x 4 x 4 mm (CC by TR by AP; series 3, image 21; series 6, image 24). Finding may represent dural calcification, meningioma, or subdural hematoma. Correlate with MR brain would be of use. 2 No acute infarct parenchymal hemorrhage, definite mass, hydrocephalus, or midline shift. 3 Small hematoma of the high posterior left frontal scalp. No underlying calvarial fracture seen.4 Mild white matter changes seen in the similar CT head 02/08/2016 that may represent sequela of chronic small vessel ischemic disease. 4 Small calcification within the high posterior left frontal lobe that appears similar CT head 02/08/2016. Finding may represent dystrophic calcification, calcification secondary to prior infections or inflammatory process, or less likely cavernoma.), Discussed with rads, EMP read indepedently, See rad report PD MEDICAL DECISION MAKING - ED course Complexity details: reviewed old records, reviewed results, re-evaluated patient, considered differential, d/w patient, d/w family ED course: 84-year-old female on Coumadin has had a fall she does have a hematoma to her scalp and a CT scan shows a concerning area in the interhemispheric falcine. The patient is otherwise asymptomatic and the area of attenuation is small and we do not have capability of doing MR here today. We have opted for a second CT scan of the head in a short time interval. I have explained this to the patient and she really feels like she wants to go home but will wait here for repeat imaging. At shift change her care is turned over to Dr. Parviz Nuñez A second scan comes up unchanged and the patient is discharged to home. Departure - Departure Disposition: 01 Home, Self Care Clinical Impression: Concussion, Supratherapeutic INR Condition: Good Comments: Return immediately if you develop headache, weakness, numbness, tingling, or other new or concerning symptoms. Your INR is a little high at 3.4. Skip your next dose, have it rechecked on Monday. Discharge Date/Time: 10/26/19 20:49
--- NOTE | 2019-10-26 17:37 | CT Report ---
Reason: head injury, coumadin Procedure Date: 10/26/2019 Accession Number: [id number] / [id number] Procedure: CT - HEAD WO CPT Code: Final Report FULL RESULT: EXAM: CT HEAD EXAM DATE: 10/26/2019 05:27 PM. CLINICAL HISTORY: 84-year-old on Coumadin presenting after ground-level fall with head trauma. Patient presents with headache and head pain. Evaluate for intracranial pathology. COMPARISON: HEAD W/O 02/08/2016 12:47 PM MRI BRAIN W/O CONTRAST 08/30/2011 9:09 PM. TECHNIQUE: Multiaxial CT images were obtained from the foramen magnum to the vertex. Reformats: Sagittal and coronal. IV contrast: None. In accordance with CT protocol optimization, one or more of the following dose reduction techniques were utilized for this exam: automated exposure control, adjustment of mA and/or KV based on patient size, or use of iterative reconstructive technique. FINDINGS: Parenchyma: No acute parenchymal hemorrhage, mass, or midline shift. Again demonstrated is calcification seen within the high posterior left frontal lobe measuring 4 x 9 mm (series 3, image 21) that appears unchanged from CT had 02/08/2016. There is mild bilateral areas of white matter attenuation seen that appears similar to prior study. There is no convincing CT evidence of acute infarct. Mild to moderate cortical volume loss. Extraaxial Spaces: Sulci and cisterns appear prominent but appropriate for the extent of volume loss. Along the posterior aspect of the left interhemispheric falx is a region of hyperattenuation measuring 4 x 4 x 4 mm (cc by TR by AP; series 3, image 21; series 6, image 24). Ventricles: Normal in size and position. Sinuses and Orbits: Changes of bilateral lens replacement. Visualized paranasal sinuses, mastoid air cells, and middle ear cavities appear clear. Bones: No evidence of fracture or calvarial defect. Other: Vascular calcifications of the cavernous and supraclinoid ICA segments. Small high left posterior frontal scalp hematoma/contusion. IMPRESSION: 1. Along the posterior aspect of the left interhemispheric falx is a region of hyperattenuation measuring 4 x 4 x 4 mm (CC by TR by AP; series 3, image 21; series 6, image 24). Finding may represent dural calcification, meningioma, or subdural hematoma. Correlation with MR brain would be of use. 2. No acute infarct, parenchymal hemorrhage, definite mass, hydrocephalus, or midline shift. 3. Small hematoma of the high posterior left frontal scalp. No underlying calvarial fracture seen. 4. Mild white matter changes seen that appear similar CT head 02/08/2016 that may represent sequela of chronic small vessel ischemic disease. 4. Small calcification within the high posterior left frontal lobe that appears similar CT head 02/08/2016. Finding may represent dystrophic calcification, calcification secondary to prior infectious or inflammatory process, or less likely cavernoma. [facility] The call report notification system was initiated by Dr. Pepito Rand at 05:36 PM on 10/26/2019. The above call report findings were discussed with Jorge Prabhakar by Dr. Pepito Rand at 05:38 PM on 10/26/2019.
[2019-10-26 17:51] LABS: INR 3.4 (0.8-1.2); PT - PROTHROMBIN TIME 36.4 secs (9.9-12.6)
--- NOTE | 2019-10-26 20:29 | CT Report ---
Reason: reeval head injury Procedure Date: 10/26/2019 Accession Number: [id number] / [id number] Procedure: CT - HEAD WO CPT Code: Final Report FULL RESULT: EXAM: CT HEAD EXAM DATE: 10/26/2019 08:14 PM. CLINICAL HISTORY: 84-year-old female. Reeval head injury. COMPARISON: HEAD W/O 10/26/2019 5:22 PM HEAD W/O 02/08/2016 12:47 PM. TECHNIQUE: Multiaxial CT images were obtained from the foramen magnum to the vertex. Reformats: Sagittal and coronal. IV contrast: None. In accordance with CT protocol optimization, one or more of the following dose reduction techniques were utilized for this exam: automated exposure control, adjustment of mA and/or KV based on patient size, or use of iterative reconstructive technique. FINDINGS: Parenchyma: No acute intraparenchymal hemorrhage. Stable dystrophic calcification anterior left centrum semi-ovale measuring 9 mm. No evidence of mass, midline shift, or CT findings of acute infarction. Sidhu-white differentiation is distinct. Diffuse chronic microangiopathic white matter changes are evident. Extraaxial Spaces: Similar to prior CT, again noted is a 4 mm left parafalcine focus of hyperattenuation (series 3 image 24), which again is nonspecific for dural calcification versus small focus of subdural hematoma versus meningioma. Ventricles: The ventricles and cortical sulci are enlarged, consistent with age-related tissue loss. Sinuses and orbits: Status post bilateral lens replacement surgery. Imaged paranasal sinuses, orbits, and mastoids show no significant abnormality. Bones: No evidence of fracture or calvarial defect. Other: Redemonstration high left frontal scalp hematoma, no underlying fracture. IMPRESSION: 1. Compared to the prior CT head performed earlier on the same day, no significant interval change and no new acute intracranial abnormality. 2. Stable dystrophic calcification anterior left Centrum semiovale a measuring 9 mm. 3. No evidence of mass, midline shift, or CT findings of acute infarction. No evidence of acute parenchymal hemorrhage. 4. Similar to prior CT, again noted is a 4 mm left parafalcine focus of hyperattenuation (series 3 image 24), which again is nonspecific for dural calcification versus small focus of subdural hematoma versus meningioma. [facility]
--- NOTE | 2019-10-26 20:35 | ED Physician Documentation ---
ED Addendum - Addendum Addendum: 10/26/19 20:35 84-year-old woman with normal exam signed out to me by Dr. Prabhakar. She had a potential tiny subdural parafalcine hematoma on CT with an INR of 3.4. The plan at signout was to repeat his CT in about 3 hours to evaluate for any interval change. Repeat CT was done without any interval change. Her examination remained unremarkable. And she was eager to go home. She was advised to return immediately if she developed headaches or neurologic symptoms.
[2019-10-26 20:36] VITALS: BP 131/87
== END 2019-10-26 20:49 | disposition home or self-care (01) ==
LOC: ED 16:51
DX: S06.0X0A Concussion without loss of consciousness, initial encounter (principal); W18.30XA Fall on same level, unspecified, initial encounter; Y93.89 Activity, other specified; Y92.009 Unspecified place in unspecified non-institutional (private) residence as the place of occurrence of the external cause; R79.1 Abnormal coagulation profile; R93.89 Abnormal findings on diagnostic imaging of other specified body structures; I10 Essential (primary) hypertension; Z87.891 Personal history of nicotine dependence; Z79.01 Long term (current) use of anticoagulants; Z66 Do not resuscitate
CPT/HCPCS: 36415; 70450; 85610; 99284

== ENCOUNTER 2019-10-30 14:01 | Outpatient (CLI) | payer MEDICARE | END 2019-10-30 23:59 | disposition home or self-care (01) | LOC: LAB.WCP 14:01 | PROVIDERS: ATTEND Physician Assistant Medical | DX: N18.9 Chronic kidney disease, unspecified (principal) | CPT/HCPCS: 36415; 80048 ==

== ENCOUNTER 2020-01-09 12:42 | Outpatient (CLI) | payer MEDICARE | END 2020-01-09 12:43 | disposition home or self-care (01) | LOC: LAB 12:42 | PROVIDERS: ATTEND Physician Assistant Medical | DX: I48.91 Unspecified atrial fibrillation (principal) | CPT/HCPCS: 85610 ==

== ENCOUNTER 2020-02-05 12:06 | Outpatient (CLI) | payer MEDICARE | END 2020-02-05 12:07 | disposition home or self-care (01) | LOC: LAB 12:06 | PROVIDERS: ATTEND Physician Assistant Medical | DX: I48.91 Unspecified atrial fibrillation (principal) | CPT/HCPCS: 85610 ==

== ENCOUNTER 2020-02-20 14:58 | Outpatient (CLI) | payer MEDICARE | END 2020-02-20 14:59 | disposition home or self-care (01) | LOC: LAB 14:58 | PROVIDERS: ATTEND Physician Assistant Medical | DX: I48.91 Unspecified atrial fibrillation (principal) | CPT/HCPCS: 85610 ==

== ENCOUNTER 2020-02-24 14:11 | Outpatient (CLI) | payer MEDICARE | END 2020-02-24 14:12 | disposition home or self-care (01) | LOC: LAB 14:11 | PROVIDERS: ATTEND Physician Assistant Medical | DX: I48.91 Unspecified atrial fibrillation (principal) | CPT/HCPCS: 85610 ==

== ENCOUNTER 2020-03-02 14:21 | Outpatient (CLI) | payer MEDICARE | END 2020-03-02 14:22 | disposition home or self-care (01) | LOC: LAB 14:21 | PROVIDERS: ATTEND Physician Assistant Medical | DX: I48.91 Unspecified atrial fibrillation (principal) | CPT/HCPCS: 85610 ==

== ENCOUNTER 2020-03-31 11:52 | Outpatient (CLI) | payer MEDICARE ==
[2020-03-31 19:03] LABS: ALBUMIN 4.3 g/dL (3.2-5.5); ALBUMIN/GLOBULIN RATIO 1.6 (1.0-2.2); ALKALINE PHOSPHATASE 53 IU/L (42-121); ALT ALANINE AMINOTRANSFERASE 29 IU/L (10-60); AST ASPARTATE AMINOTRANSFERASE 23 IU/L (10-42); BILIRUBIN,TOTAL 0.6 mg/dL (0.2-1.0); BUN - BLOOD UREA NITROGEN 33 mg/dL (6-20); CALCIUM 9.8 mg/dL (8.5-10.3); CARBON DIOXIDE - CO2 31 mmol/L (21-32); CHLORIDE 99 mmol/L (101-111); CHOLESTEROL 142 mg/dL; CREATININE 1.3 mg/dL (0.4-1.0); GLUCOSE 100 mg/dL (70-100); HDL CHOLESTEROL 72 mg/dL; LDL CHOLESTEROL,CALCULATED 56 mg/dL; LDL/HDL RATIO 0.8 (<4.4); SODIUM 135 mmol/L (135-145); VLDL CHOLESTEROL 14 mg/dL
== END 2020-03-31 23:59 ==
LOC: LAB.WCP 11:52
PROVIDERS: ATTEND Physician Assistant Medical
DX: E78.5 Hyperlipidemia, unspecified (principal)
CPT/HCPCS: 36415; 80053; 80061; 83721

== ENCOUNTER 2020-04-10 11:07 | Outpatient (CLI) | payer MEDICARE ==
[2020-04-10] MEDS ORDERED: ALBUTEROL 1 PUFF INH STA (13:34)
== END 2020-04-10 11:08 | disposition home or self-care (01) ==
LOC: RT 11:07
PROVIDERS: ATTEND Physician Assistant Medical
DX: J44.9 Chronic obstructive pulmonary disease, unspecified (principal)
CPT/HCPCS: 94060; 94729

== ENCOUNTER 2020-04-15 19:28 | Emergency (ER) | payer MEDICARE ==
[2020-04-15 19:43] VITALS: BP 141/95
[2020-04-15] MEDS ORDERED: BACITRACIN ZINC OINT 1 PACKET TOP STA (21:40)
--- NOTE | 2020-04-15 21:43 | ED Physician Documentation ---
History of Present Illness - Stated complaint Stated Complaint: GLF - Chief complaint Chief Complaint: General - Additonal information Additional information: 85-year-old female here for a large skin tear to her left upper extremity sustained this evening when she was walking with a walker hit a high curb and fell forward onto a chain link fence. She did not fall to the ground she did not hit her head. She is taking Coumadin. Patient reports tetanus is up-to-date Review of Systems Constitutional: denies: Fever, Chills Nose: denies: Rhinorrhea / runny nose, Congestion, Epistaxis Cardiac: denies: Chest pain / pressure, Palpitations, Pedal edema, Calf pain Respiratory: denies: Dyspnea, Cough Skin: reports: Lesions (skin tear left upper arm) Musculoskeletal: denies: Neck pain, Back pain PD PAST MEDICAL HISTORY - Past Medical History Past Medical History: Yes Cardiovascular: Hypertension, Atrial fibrillation Respiratory: COPD Endocrine/Autoimmune: HyPOthyroidism GI: Chronic constipation : Frequency HEENT: None Psych: None Musculoskeletal: Osteoporosis Derm: None - Past Surgical History Past Surgical History: Yes General: Other - Present Medications Home Medications: Ambulatory Orders Medication Instructions Recorded Confirmed Atenolol 50 mg PO QPM 12/21/12 04/10/18 Levothyroxine Sodium [Levothroid] 100 mcg PO QDAC 12/21/12 04/10/18 Tiotropium [Spiriva] 1 puffs INH DAILY 12/21/12 04/10/18 Budesonide/Formoterol Fumarate 2 puffs ORAL BID 04/11/17 04/10/18 [Symbicort 160-4.5 Mcg Inhaler] Spironolactone 25 mg PO BID 09/05/17 04/10/18 Apixaban [Eliquis] 1 tab PO DAILY 04/10/18 04/10/18 Acetaminophen [Tylenol] 1 tab PO Q6HR 05/16/18 05/16/18 Calcium Carbonate/Vitamin D3 1 tab PO DAILY 05/16/18 05/16/18 [Calcium 500 mg-Vit D3 600 Unit] Cholecalciferol (Vitamin D3) 2 cap PO DAILY 05/16/18 05/16/18 [Vitamin D3] Cyclobenzaprine [Flexeril] 0.5 tab PO TID PRN 05/16/18 05/16/18 Magnesium Oxide [Magnesium] 400 mg PO DAILY 05/16/18 05/16/18 Meloxicam 1 tab PO BID PRN 05/16/18 05/16/18 Mometasone/Formoterol [Dulera 200 2 puffs PO BID 05/16/18 05/16/18 Mcg/5 Mcg Inhaler] [place]-3S/Dha/Epa/Fish Oil [Fish 1 cap PO DAILY 05/16/18 05/16/18 Oil [place]-3 Softgel] Ubidecarenone [Co Q-10] 400 mg PO DAILY 05/16/18 05/16/18 Zoledronic Acid/Mannitol&Water 1 applic IM ONCE 05/16/18 05/16/18 [Reclast 5 mg/100 ml Solution] Bacitracin Zinc Oint 1 applic TOP BID #1 tube 04/15/20 - Allergies Allergies/Adverse Reactions: Allergies Allergy/AdvReac Type Severity Reaction Status Date / Time No Known Drug Allergies Allergy Verified 10/26/19 17:17 - Social History Does the pt smoke?: No Smoking Status: Never smoker Does the pt drink ETOH?: Yes Does the pt have substance abuse?: No - Immunizations Immunizations are current?: Yes - POLST Patient has POLST: Yes POLST Status: DNR (Patient states she has not filled out a POLST however wishes to have DO NOT RESUSCITATE order status) PD ED PE NORMAL - General General: Alert and oriented X 3, No acute distress, Well developed/nourished - HEENT HEENT: PERRL, EOMI - Neck Neck: Supple, no meningeal sign, No adenopathy - Derm Derm: Normal color, Warm and dry, Other (large 3/4 cm skin tear with most of the skin missing. visible dermis below with small amount of bleeding. no laceration) Results - Vitals Vitals: Vital Signs - 24 hr 04/15/20 19:42 Temperature 36.4 C L Heart Rate 90 Respiratory 18 Rate Blood Pressure 141/95 H O2 Saturation 95 Oxygen O2 Source Room air PD MEDICAL DECISION MAKING - ED course Complexity details: considered differential, d/w patient ED course: 85-year-old female presents to the emergency department for a left upper arm skin tear/wound sustained when she fell forward onto [employer] fence. This wound is not amenable to primary closure with sutures. Much of the skin is missing. I recommend that this will have to heal by secondary intention over short period of time. I recommend washing with warm soap and water applying bacitracin nonstick gauze and then co-band. Will defer antibiotics unless there are concerns of infection in those infection return precautions were discussed Departure - Departure Disposition: 01 Home, Self Care Clinical Impression: Skin tear Condition: Stable Record reviewed to determine appropriate education?: Yes Instructions: ED Avulsion Dermal Prescriptions: Bacitracin Zinc Oint 1 applic TOP BID #1 tube Comments: Patria your skin tear will have to heal slowly over the next few weeks. I do recommend that you wash the wound daily with warm soap and water. Pat dry apply thin layer of bacitracin, then nonstick gauze and then the Coban dressing. If at any point you have redness, milky drainage increased pain fevers or red streaking or any concerns of infection please return for a second evaluation
== END 2020-04-15 21:56 | disposition home or self-care (01) ==
LOC: ED 19:28
DX: S41.112A Laceration without foreign body of left upper arm, initial encounter (principal); W01.198A Fall on same level from slipping, tripping and stumbling with subsequent striking against other object, initial encounter; Y93.01 Activity, walking, marching and hiking; Z79.01 Long term (current) use of anticoagulants; Z66 Do not resuscitate
CPT/HCPCS: 99282; 99283

== ENCOUNTER 2020-04-24 16:12 | Outpatient (CLI) | payer MEDICARE ==
--- NOTE | 2020-04-24 16:17 | XRAY Report ---
PROCEDURE: Finger(s) RT INDICATIONS: RIGHT THUMB PAIN TECHNIQUE: AP hand, views of the finger(s) acquired. COMPARISON: FINDINGS: Bones: No fractures or dislocations. No suspicious bony lesions. Soft tissues: There is an unusual ovoid sharply demarcated apparently calcific radiodensity without internal bony matrix, involving the soft tissues adjacent to the distal tuft of the thumb, measuring approximately 6 mm longitudinal and 3 mm in axial dimension. IMPRESSION: No trauma to the top of the first distal phalanx is found. 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 Note is made of an amorphous ovoid sharply demarcated calcification within th e soft tissues adjacent to but not involving the distal tuft. Etiology is uncertain, and dystrophic c alcification from the past may explain this appearance. Reviewed by: Oli Landry MD on 04/24/2020 4:15 PM PDT Approved by: Oli Landry MD on 04/24/2020 4:15 PM PDT Station ID: [id number]
== END 2020-04-24 23:59 | disposition home or self-care (01) ==
LOC: DI.WCP 16:12
PROVIDERS: ATTEND Orthopaedic Surgery
DX: M19.041 Primary osteoarthritis, right hand (principal); R93.6 Abnormal findings on diagnostic imaging of limbs
CPT/HCPCS: 73140

== ENCOUNTER 2020-05-05 08:00 | Outpatient (CLI) | payer MEDICARE | END 2020-05-05 23:59 | disposition home or self-care (01) | LOC: LAB.WCP 08:00 | PROVIDERS: ATTEND Family Medicine | DX: Z79.01 Long term (current) use of anticoagulants (principal) ==

== ENCOUNTER 2020-05-22 08:00 | Outpatient (CLI) | payer MEDICARE ==
[2020-05-22 11:50] LABS: BASOPHILS # (AUTO) 0.1 10^3/uL (0.0-0.1); EOSINOPHILS # (AUTO) 0.2 10^3/uL (0.0-0.7); HGB - HEMOGLOBIN 15.6 g/dL (12.0-16.0); LYMPHOCYTES # (AUTO) 1.1 10^3/uL (1.5-3.5); LYMPHOCYTES % (AUTO) 18.2 %; MEAN CORPUSCULAR HEMOGLOBIN 32.6 pg (27.0-31.0); MEAN CORPUSCULAR HGB CONC 32.8 g/dL (32.0-36.0); MEAN CORPUSCULAR VOLUME 99.2 fL (81.0-99.0); MEAN PLATELET VOLUME 9.2 fL (7.9-10.8); MONOCYTES # (AUTO) 0.6 10^3/uL (0.0-1.0); MONOCYTES % (AUTO) 9.6 %; NEUTROPHILS # (AUTO) 4.2 10^3/uL (1.5-6.6); NEUTROPHILS % (AUTO) 67.7 %; PLT - PLATELET COUNT 218 10^3/uL (130-450); RED BLOOD COUNT 4.79 10^6/uL (4.20-5.40); RED CELL DISTRIBUTION WIDTH 13.7 % (12.0-15.0); WHITE BLOOD COUNT 6.3 x10^3/uL (4.8-10.8)
[2020-05-22 12:18] LABS: ALBUMIN 4.1 g/dL (3.2-5.5); ALBUMIN/GLOBULIN RATIO 1.6 (1.0-2.2); BILIRUBIN,TOTAL 0.9 mg/dL (0.2-1.0); CALCIUM 9.7 mg/dL (8.5-10.3); CREATININE 1.2 mg/dL (0.4-1.0); TOTAL PROTEIN 6.7 g/dL (6.7-8.2)
== END 2020-05-22 23:59 | disposition home or self-care (01) ==
LOC: LAB.WCP 08:00
PROVIDERS: ATTEND Family Medicine
DX: H53.9 Unspecified visual disturbance (principal)
CPT/HCPCS: 36415; 80053; 85025

== ENCOUNTER 2020-05-25 14:33 | Outpatient (CLI) | payer MEDICARE ==
--- NOTE | 2020-05-25 14:57 | CT Report ---
PROCEDURE: HEAD WO INDICATIONS: VISION CHANGES, AFIB, ANTICOAGULATION THERAPY TECHNIQUE: Noncontrast 4.5 mm thick angled axial sections acquired from the foramen magnum to the vertex. For r adiation dose reduction, the following was used: automated exposure control, adjustment of mA and/or kV according to patient size. COMPARISON: 10/26/2019 and 02/08/2016. FINDINGS: Image quality: Excellent. CSF spaces: Basal cisterns are patent. No extra-axial fluid collections. Ventricles are normal in size and shape. Brain: No midline shift. No intracranial masses or hemorrhage. Sidhu-white matter interface is norm al. Course calcification measuring 0.9 x 0.7 x 1.3 cm in the left frontal centrum semiovale is stable com pared to prior examination may represent dystrophic calcification or calcification related to underly ing vascular malformation such as cavernous angioma. Small, less than 4 mm left parietal parafalcine extra-axial hyperdense mass is stable compared to prior examination likely represents a small meningi latisha. Skull and face: Calvarium and visualized facial bones are intact, without suspicious lesions. Sinuses: Visualized sinuses and mastoids are clear. IMPRESSION: 1. Stable examination compared to 10/26/2019 and 02/08/2016 with no acute intracranial disease process. 2. No intracranial hemorrhage. 3. Small, approximate 4 mm left parietal parafalcine extra-axial mass likely related to meningioma is stable compared to prior exams. 4. 0.9 x 0.7 x 1.3 cm left frontal centrum semiovale coarse calcification is stable. Reviewed by: Brenda Valverde MD, PhD on 05/25/2020 2:56 PM PDT Approved by: Brenda Valverde MD, PhD on 05/25/2020 2:56 PM PDT Station ID: [id number]
== END 2020-05-25 14:34 | disposition home or self-care (01) ==
LOC: DI 14:33
PROVIDERS: ATTEND Family Medicine
DX: H53.9 Unspecified visual disturbance (principal); R22.0 Localized swelling, mass and lump, head; I48.91 Unspecified atrial fibrillation; Z79.01 Long term (current) use of anticoagulants
CPT/HCPCS: 70450; 85610

== ENCOUNTER 2020-06-30 12:25 | Outpatient (CLI) | payer MEDICARE | END 2020-06-30 12:26 | disposition home or self-care (01) | LOC: LAB 12:25 | PROVIDERS: ATTEND Physician Assistant Medical | DX: I48.91 Unspecified atrial fibrillation (principal) | CPT/HCPCS: 85610 ==

== ENCOUNTER 2020-07-15 12:20 | Outpatient (CLI) | payer MEDICARE | END 2020-07-15 12:21 | disposition home or self-care (01) | LOC: LAB 12:20 | PROVIDERS: ATTEND Physician Assistant Medical | DX: I48.91 Unspecified atrial fibrillation (principal) | CPT/HCPCS: 85610 ==

== ENCOUNTER 2020-07-23 12:19 | Outpatient (CLI) | payer MEDICARE | END 2020-07-23 12:20 | disposition home or self-care (01) | LOC: LAB 12:19 | PROVIDERS: ATTEND Physician Assistant Medical | DX: I48.91 Unspecified atrial fibrillation (principal) | CPT/HCPCS: 85610 ==

== ENCOUNTER 2020-07-28 13:52 | Outpatient (CLI) | payer MEDICARE | END 2020-07-28 13:53 | disposition home or self-care (01) | LOC: LAB 13:52 | PROVIDERS: ATTEND Physician Assistant Medical | DX: I48.91 Unspecified atrial fibrillation (principal) | CPT/HCPCS: 85610 ==

== ENCOUNTER 2020-08-11 09:42 | Outpatient (CLI) | payer MEDICARE | END 2020-08-11 09:43 | disposition home or self-care (01) | LOC: LAB 09:42 | PROVIDERS: ATTEND Physician Assistant Medical | DX: I48.91 Unspecified atrial fibrillation (principal) | CPT/HCPCS: 85610 ==

== ENCOUNTER 2020-08-17 11:21 | Outpatient (CLI) | payer MEDICARE | END 2020-08-17 11:22 | disposition home or self-care (01) | LOC: LAB 11:21 | PROVIDERS: ATTEND Physician Assistant Medical | DX: I48.91 Unspecified atrial fibrillation (principal) | CPT/HCPCS: 85610 ==

== ENCOUNTER 2020-08-24 13:35 | Outpatient (CLI) | payer MEDICARE | END 2020-08-24 13:36 | disposition home or self-care (01) | LOC: LAB 13:35 | PROVIDERS: ATTEND Physician Assistant Medical | DX: I48.91 Unspecified atrial fibrillation (principal) | CPT/HCPCS: 85610 ==

== ENCOUNTER 2020-08-31 12:04 | Outpatient (CLI) | payer MEDICARE | END 2020-08-31 12:05 | disposition home or self-care (01) | LOC: LAB 12:04 | PROVIDERS: ATTEND Physician Assistant Medical | DX: Z79.01 Long term (current) use of anticoagulants (principal) | CPT/HCPCS: 85610 ==

== ENCOUNTER 2020-09-21 08:00 | Outpatient (CLI) | payer MEDICARE | END 2020-09-21 23:59 | disposition home or self-care (01) | LOC: LAB.WCP 08:00 | PROVIDERS: ATTEND Physician Assistant Medical | DX: Z79.01 Long term (current) use of anticoagulants (principal) ==

== ENCOUNTER 2020-09-30 08:00 | Outpatient (CLI) | payer MEDICARE | END 2020-09-30 23:59 | disposition home or self-care (01) | LOC: LAB.N 08:00 | PROVIDERS: ATTEND Physician Assistant Medical | DX: Z79.01 Long term (current) use of anticoagulants (principal) ==

== ENCOUNTER 2020-10-09 08:00 | Outpatient (CLI) | payer MEDICARE | END 2020-10-09 23:59 | disposition home or self-care (01) | LOC: LAB.WCP 08:00 | PROVIDERS: ATTEND Physician Assistant Medical | DX: I48.91 Unspecified atrial fibrillation (principal); Z79.01 Long term (current) use of anticoagulants ==

== ENCOUNTER 2020-10-29 13:02 | Outpatient (CLI) | payer MEDICARE ==
[2020-10-29 18:48] LABS: CHOL/HDL RATIO 2.1 (<4.4); CHOLESTEROL 152 mg/dL; HDL CHOLESTEROL 72 mg/dL; LDL CHOLESTEROL,CALCULATED 63 mg/dL; LDL/HDL RATIO 0.9 (<4.4); TRIGLYCERIDES 84 mg/dL; VLDL CHOLESTEROL 17 mg/dL
[2020-10-29 19:01] LABS: THYROID STIMULATING HORMONE 2.95 uIU/mL (0.34-5.60)
== END 2020-10-29 13:03 | disposition home or self-care (01) ==
LOC: LAB.N 13:02
PROVIDERS: ATTEND Physician Assistant Medical
DX: E03.9 Hypothyroidism, unspecified (principal); Z79.01 Long term (current) use of anticoagulants; E78.5 Hyperlipidemia, unspecified
CPT/HCPCS: 36415; 80061; 83721; 84443; 85610

== ENCOUNTER 2021-01-15 14:43 | Outpatient (CLI) | payer MEDICARE | END 2021-01-15 14:44 | disposition home or self-care (01) | LOC: LAB 14:43 | PROVIDERS: ATTEND Physician Assistant Medical | DX: I48.91 Unspecified atrial fibrillation (principal) | CPT/HCPCS: 36416; 85610 ==

== ENCOUNTER 2021-02-02 15:46 | Outpatient (CLI) | payer MEDICARE ==
--- NOTE | 2021-02-02 22:15 | XRAY Report ---
PROCEDURE: Knee 3 View BILAT INDICATIONS: OSTEOARTHRITIS, BILATERAL KNEES TECHNIQUE: 3 views of the right left knee(s) were acquired. COMPARISON: X-ray 2 views, left knee, 02/08/2016. FINDINGS: Left knee: No acute fractures or dislocations. Old healed avulsion fracture of the medial femoral c ondyle. Chondrocalcinosis. Noye-lc-[id number] tricompartmental knee joint degeneration is increased com pared to last exam. No suspicious bony lesions. Small joint effusion. No suspicious soft tissue calc ifications. Right kidney: No fractures or dislocations. No suspicious bony lesions. Mild tricompartmental knee joint degeneration. Small joint effusion. No suspicious soft tissue calcifications. Soft tissue bailee cifications in the prepatellar soft tissue. IMPRESSION: 1. Osteoarthritic changes bilaterally, left greater than right. 2. Old avulsion fracture in medial left femoral condyle. 3. Soft tissue calcifications in the prepatellar soft tissue of the right knee. Reviewed by: Nai Crowley MD on 02/02/2021 10:13 PM PDT Approved by: Nai Crowley MD on 02/02/2021 10:13 PM PDT Station ID: [id number]
== END 2021-02-02 15:47 | disposition home or self-care (01) ==
LOC: DI.N 15:46
PROVIDERS: ATTEND Physician Assistant Medical
DX: M17.0 Bilateral primary osteoarthritis of knee (principal)

== ENCOUNTER 2021-02-04 11:02 | Outpatient (CLI) | payer MEDICARE | END 2021-02-04 11:03 | disposition home or self-care (01) | LOC: RT 11:02 | PROVIDERS: ATTEND Internal Medicine Cardiovascular Disease | DX: I48.91 Unspecified atrial fibrillation (principal) | CPT/HCPCS: 93005 ==

== ENCOUNTER 2021-03-04 10:17 | Outpatient (CLI) | payer MEDICARE | END 2021-03-04 10:18 | disposition home or self-care (01) | LOC: DI 10:17 | PROVIDERS: ATTEND Internal Medicine Cardiovascular Disease | DX: R60.0 Localized edema (principal) | CPT/HCPCS: 93306 ==

== ENCOUNTER 2021-04-01 10:25 | Outpatient (CLI) | payer MEDICARE ==
[2021-04-01 11:15] LABS: CHOLESTEROL 139 mg/dL; HDL CHOLESTEROL 70 mg/dL; LDL CHOLESTEROL,CALCULATED 58 mg/dL; LDL/HDL RATIO 0.8 (<4.4); TRIGLYCERIDES 54 mg/dL; VLDL CHOLESTEROL 11 mg/dL
[2021-04-01 11:27] LABS: THYROID STIMULATING HORMONE 2.75 uIU/mL (0.34-5.60)
== END 2021-04-01 10:26 | disposition home or self-care (01) ==
LOC: LAB 10:25
PROVIDERS: ATTEND Physician Assistant Medical
DX: I48.91 Unspecified atrial fibrillation (principal); E78.5 Hyperlipidemia, unspecified; E03.9 Hypothyroidism, unspecified
CPT/HCPCS: 36415; 80061; 83721; 84443; 85610

== ENCOUNTER 2021-04-09 09:39 | Outpatient (CLI) | payer MEDICARE ==
[2021-04-09 10:14] LABS: CREATININE 1.3 mg/dL (0.4-1.0); POTASSIUM 4.4 mmol/L (3.5-5.0)
== END 2021-04-09 09:40 | disposition home or self-care (01) ==
LOC: LAB 09:39
PROVIDERS: ATTEND Physician Assistant Medical
DX: N18.9 Chronic kidney disease, unspecified (principal)
CPT/HCPCS: 36415; 80048

== ENCOUNTER 2021-04-15 13:39 | Outpatient (CLI) | payer MEDICARE | END 2021-04-15 13:40 | disposition critical access hospital (66) | LOC: EMS 13:39 | DX: S09.90XA Unspecified injury of head, initial encounter (principal); W18.39XA Other fall on same level, initial encounter; Y93.89 Activity, other specified; Y92.89 Other specified places as the place of occurrence of the external cause | CPT/HCPCS: A0425; A0429 ==

== ENCOUNTER 2021-04-15 13:58 | Emergency (ER) | payer MEDICARE ==
--- NOTE | 2021-04-15 14:04 | ED Physician Documentation ---
PD HPI HEAD INJURY - Stated complaint Stated Complaint: GLF - History obtained from History obtained from: Patient, EMS - Additional information Additional information: 86-year-old woman on warfarin stood up too fast while having a pedicure and got dizzy and fell backwards hitting the back of her head on a tile floor. There was no loss of consciousness, no other injuries. Review of Systems Constitutional: denies: Fever, Chills Cardiac: reports: Reviewed and negative Respiratory: reports: Reviewed and negative GI: denies: Abdominal Pain, Nausea, Vomiting PD PAST MEDICAL HISTORY - Past Medical History Cardiovascular: Hypertension, Atrial fibrillation Respiratory: COPD Endocrine/Autoimmune: HyPOthyroidism GI: Chronic constipation : Frequency HEENT: None Psych: None Musculoskeletal: Osteoporosis Derm: None - Past Surgical History Past Surgical History: Yes General: Other - Present Medications Home Medications: Ambulatory Orders Medication Instructions Recorded Confirmed Atenolol 50 mg PO QPM 12/21/12 04/10/18 Levothyroxine Sodium [Levothroid] 100 mcg PO QDAC 12/21/12 04/10/18 Tiotropium [Spiriva] 1 puffs INH DAILY 12/21/12 04/10/18 Budesonide/Formoterol Fumarate 2 puffs ORAL BID 04/11/17 04/10/18 [Symbicort 160-4.5 Mcg Inhaler] Spironolactone 25 mg PO BID 09/05/17 04/10/18 Apixaban [Eliquis] 1 tab PO DAILY 04/10/18 04/10/18 Acetaminophen [Tylenol] 1 tab PO Q6HR 05/16/18 05/16/18 Calcium Carbonate/Vitamin D3 1 tab PO DAILY 05/16/18 05/16/18 [Calcium 500 mg-Vit D3 600 Unit] Cholecalciferol (Vitamin D3) 2 cap PO DAILY 05/16/18 05/16/18 [Vitamin D3] Cyclobenzaprine [Flexeril] 0.5 tab PO TID PRN 05/16/18 05/16/18 Magnesium Oxide [Magnesium] 400 mg PO DAILY 05/16/18 05/16/18 Meloxicam 1 tab PO BID PRN 05/16/18 05/16/18 Mometasone/Formoterol [Dulera 200 2 puffs PO BID 05/16/18 05/16/18 Mcg/5 Mcg Inhaler] [place]-3S/Dha/Epa/Fish Oil [Fish 1 cap PO DAILY 05/16/18 05/16/18 Oil [place]-3 Softgel] Ubidecarenone [Co Q-10] 400 mg PO DAILY 05/16/18 05/16/18 Zoledronic Acid/Mannitol&Water 1 applic IM ONCE 05/16/18 05/16/18 [Reclast 5 mg/100 ml Solution] Bacitracin Zinc Oint 1 applic TOP BID #1 tube 04/15/20 - Allergies Allergies/Adverse Reactions: Allergies Allergy/AdvReac Type Severity Reaction Status Date / Time No Known Drug Allergies Allergy Verified 04/15/21 14:06 - Social History Does the pt smoke?: No Smoking Status: Never smoker Does the pt drink ETOH?: Yes Does the pt have substance abuse?: No - Immunizations Immunizations are current?: Yes - POLST Patient has POLST: Yes POLST Status: DNR (Patient states she has not filled out a POLST however wishes to have DO NOT RESUSCITATE order status) PD ED PE NORMAL - Vitals Vital signs reviewed: Yes - General General: Alert and oriented X 3, No acute distress - HEENT HEENT: PERRL, EOMI - Neck Neck: Supple, no meningeal sign, No bony TTP - Neuro Neuro: Alert and oriented X 3, jr. java developer 2-12 intact, No motor deficit, No sensory deficit, Normal speech Eye Opening: Spontaneous Motor: Obeys Commands Verbal: Oriented GCS Score: 15 Results - Vitals Vitals: Vital Signs - 24 hr 04/15/21 14:01 Temperature 36.7 C Heart Rate 77 Respiratory 16 Rate Blood Pressure 139/95 H O2 Saturation 98 Oxygen O2 Source Room air - Rads (name of study) CT head and cervical spine Radiology: EMP read contemporaneously (Without trauma) PD MEDICAL DECISION MAKING - ED course ED course: 86-year-old woman brought in as a modified trauma due to head injury while on anticoagulation. No external signs of injury though. Departure - Departure Disposition: 01 Home, Self Care Clinical Impression: Adequate anticoagulation on anticoagulant therapy Injury of head and neck Qualifiers: Encounter type: initial encounter Qualified Code(s): S09.90XA - Unspecified injury of head, initial encounter; S19.9XXA - Unspecified injury of neck, initial encounter Condition: Good Record reviewed to determine appropriate education?: Yes Instructions: ED Head Injury Closed
--- NOTE | 2021-04-15 14:29 | CT Report ---
PROCEDURE: CERVICAL SPINE WO INDICATIONS: head injury TECHNIQUE: Noncontrast 3 mm thick sections acquired from the skull base to the T4 level. Sagittal and coronal r eformats were then constructed. For radiation dose reduction, the following was used: automated exp osure control, adjustment of mA and/or kV according to patient size. COMPARISON: None. FINDINGS: Image quality: Excellent. Bones: No fractures or dislocations. Visualized superior ribs are intact. Cervical straightening i s present. Multilevel degenerative disc space narrowing is present most significant at C5-6 and C6-7. Small nonbridging anterior osteophytes are present. Soft tissues: Prevertebral soft tissues are normal in thickness. No paravertebral hematomas. No ap ical pneumothoraces. Fluid is noted noted esophagus. IMPRESSION: 1. Multilevel degenerative changes without visualized fracture. Reviewed by: Annie Juarez MD on 04/15/2021 2:28 PM PDT Approved by: Annie Juarez MD on 04/15/2021 2:28 PM PDT Station ID: [id number]
--- NOTE | 2021-04-15 14:34 | CT Report ---
PROCEDURE: HEAD WO INDICATIONS: head injury TECHNIQUE: Noncontrast 4.5 mm thick angled axial sections acquired from the foramen magnum to the vertex. For r adiation dose reduction, the following was used: automated exposure control, adjustment of mA and/or kV according to patient size. COMPARISON: 05/25/2020, 10/26/2019 and 02/08/2016 FINDINGS: Image quality: Excellent. CSF spaces: Basal cisterns are patent. No extra-axial fluid collections. The ventricles are symmet destin in size and shape. Brain: No intracranial bleeds or masses. Coarse calcification in the left frontal centrum semiovale bilaterally is stable compared to prior exams. Small 4 mm hyperdense, left parietal parafalcine extra -axial lesion is stable compared to prior exams. There is cerebral volume loss for age, with resultan t ventricular and sulcal prominence. There are periventricular and deep white matter chronic small v essel ischemic changes. There is intracranial internal carotid artery atherosclerosis. Skull and face: Calvarium and visualized facial bones appear intact, without suspicious lesions. Sinuses: Visualized sinuses and mastoids are clear. IMPRESSION: 1. Stable examination compared to 05/25/2020. No acute intracranial disease process. 2. No intracranial hemorrhage. 3. No fracture. Reviewed by: Brenda Valverde MD, PhD on 04/15/2021 2:33 PM PDT Approved by: Brenda Valverde MD, PhD on 04/15/2021 2:33 PM PDT Station ID: [id number]
[2021-04-15 15:49] VITALS: BP 135/88
== END 2021-04-15 15:49 | disposition home or self-care (01) ==
LOC: EDUNIT# → ED 13:58
DX: S09.90XA Unspecified injury of head, initial encounter (principal); S19.9XXA Unspecified injury of neck, initial encounter; W01.0XXA Fall on same level from slipping, tripping and stumbling without subsequent striking against object, initial encounter; Y93.89 Activity, other specified; Y92.29 Other specified public building as the place of occurrence of the external cause; Z79.01 Long term (current) use of anticoagulants; I48.91 Unspecified atrial fibrillation; I10 Essential (primary) hypertension; M50.322 Other cervical disc degeneration at C5-C6 level; M48.02 Spinal stenosis, cervical region; Z66 Do not resuscitate
CPT/HCPCS: 85610; 99283; 99284

== ENCOUNTER 2021-04-30 10:58 | Outpatient (CLI) | payer MEDICARE ==
--- NOTE | 2021-04-30 13:29 | XRAY Report ---
PROCEDURE: Lumbar Spine Complete INDICATIONS: LOW BACK PAIN TECHNIQUE: 5 views of the lumbar spine were acquired. COMPARISON: None. FINDINGS: Bones: 5 [id number] vertebrae are present. There is normal bony alignment. Degenerative disc disease and bilateral facet arthrosis throughout lumbar spine is seen more prominent at L4-5 and L5-S 1 levels. No vertebral body compression fractures. No suspicious bony lesions. Oblique views shows no pars defects. Soft tissues: Overlying bowel gas pattern is normal. No suspicious soft tissue calcifications. IMPRESSION: Degenerative disc disease throughout lumbar spine and visualized lower thoracic spine. N o acute compression fracture or spondylolisthesis. No gross pars defects. Reviewed by: Charles Jackson MD on 04/30/2021 1:28 PM PDT Approved by: Charles Jackson MD on 04/30/2021 1:28 PM PDT Station ID: [id number]
== END 2021-04-30 10:59 | disposition home or self-care (01) ==
LOC: DI.N 10:58
PROVIDERS: ATTEND Physician Assistant Medical
DX: M47.816 Spondylosis without myelopathy or radiculopathy, lumbar region (principal); M47.814 Spondylosis without myelopathy or radiculopathy, thoracic region; M51.36 Other intervertebral disc degeneration, lumbar region; M51.34 Other intervertebral disc degeneration, thoracic region

== ENCOUNTER 2021-05-04 10:00 | Outpatient (CLI) | payer MEDICARE | END 2021-05-04 10:01 | disposition EMS.NT | LOC: EMS 10:00 | DX: S50.811A Abrasion of right forearm, initial encounter (principal); R53.83 Other fatigue; W45.8XXA Other foreign body or object entering through skin, initial encounter; Y93.89 Activity, other specified; Y92.003 Bedroom of unspecified non-institutional (private) residence as the place of occurrence of the external cause ==

== ENCOUNTER 2021-05-07 09:56 | Outpatient (CLI) | payer MEDICARE | END 2021-05-07 09:57 | disposition home or self-care (01) | LOC: LAB 09:56 | PROVIDERS: ATTEND Physician Assistant Medical | DX: I48.91 Unspecified atrial fibrillation (principal) | CPT/HCPCS: 36416; 85610 ==

== ENCOUNTER 2021-05-20 10:59 | Outpatient (CLI) | payer MEDICARE | END 2021-05-20 11:00 | disposition critical access hospital (66) | LOC: EMS 10:59 | DX: M79.89 Other specified soft tissue disorders (principal); R23.8 Other skin changes; R60.0 Localized edema | CPT/HCPCS: A0425; A0429 ==

== ENCOUNTER 2021-05-20 11:07 | Emergency (ER) | payer MEDICARE ==
--- NOTE | 2021-05-20 11:45 | ED Physician Documentation ---
History of Present Illness - Stated complaint Stated Complaint: LEG EDEMA - Chief complaint Chief Complaint: Ext Problem - Additonal information Additional information: 86-year-old female presents the emergency department for evaluation of bilateral lower extremity edema. She reports that this has been a chronic and ongoing problem since a hip replacement about 3 years ago. She does feel that the swelling in both of her legs has gotten worse over the last few months. Certainly her left leg is bigger than her right but this is chronic. Her biggest concern is that over the last month she has noticed that there has been increased redness and weeping on the right lower lateral leg. She reports that she will wrap her leg in a towel at night and wake up with it saturated in the morning. She denies that she is having any shortness of breath or chest pain. There have been no fevers. No cough, no congestion She is on Coumadin secondary to history of atrial fibrillation. Rate is controlled with atenolol. She is rx furosemide and Spironolactone with recent rx and fills Review of Systems Constitutional: denies: Fever, Chills Eyes: reports: Reviewed and negative Ears: reports: Reviewed and negative Nose: reports: Reviewed and negative Throat: reports: Reviewed and negative Cardiac: reports: Other (chronic BLE edema) Respiratory: reports: Reviewed and negative GI: reports: Reviewed and negative : reports: Reviewed and negative Skin: reports: Lesions Musculoskeletal: reports: Reviewed and negative Neurologic: reports: Reviewed and negative PD PAST MEDICAL HISTORY - Past Medical History Past Medical History: Yes Cardiovascular: Hypertension, Atrial fibrillation Respiratory: COPD Endocrine/Autoimmune: HyPOthyroidism GI: Chronic constipation : Frequency HEENT: None Psych: None Musculoskeletal: Osteoporosis Derm: None - Past Surgical History Past Surgical History: Yes General: Other - Present Medications Home Medications: Ambulatory Orders Medication Instructions Recorded Confirmed Atenolol 25 mg PO QPM 12/21/12 04/10/18 Levothyroxine Sodium [Levothroid] 100 mcg PO QDAC 12/21/12 04/10/18 Tiotropium [Spiriva] 1 puffs INH DAILY 12/21/12 04/10/18 Budesonide/Formoterol Fumarate 2 puffs ORAL BID 04/11/17 04/10/18 [Symbicort 160-4.5 Mcg Inhaler] Spironolactone 25 mg PO BID 09/05/17 04/10/18 Acetaminophen [Tylenol] 1 tab PO Q6HR 05/16/18 05/16/18 Calcium Carbonate/Vitamin D3 1 tab PO DAILY 05/16/18 05/16/18 [Calcium 500 mg-Vit D3 600 Unit] Cholecalciferol (Vitamin D3) 2 cap PO DAILY 05/16/18 05/16/18 [Vitamin D3] Cyclobenzaprine [Flexeril] 0.5 tab PO TID PRN 05/16/18 05/16/18 Magnesium Oxide [Magnesium] 400 mg PO DAILY 05/16/18 05/16/18 [place]-3S/Dha/Epa/Fish Oil [Fish 1 cap PO DAILY 05/16/18 05/16/18 Oil [place]-3 Softgel] Ubidecarenone [Co Q-10] 400 mg PO DAILY 05/16/18 05/16/18 Zoledronic Acid/Mannitol&Water 1 applic IM ONCE 05/16/18 05/16/18 [Reclast 5 mg/100 ml Solution] Amitriptyline [Elavil] 25 mg PO QPM 05/20/21 05/20/21 Doxycycline Hyclate 100 mg PO BID #14 tab 05/20/21 Furosemide [Lasix] 20 mg PO QPM 05/20/21 05/20/21 Furosemide [Lasix] 40 mg PO DAILY 05/20/21 05/20/21 Pramipexole [Mirapex] 0.25 mg PO HS 05/20/21 05/20/21 Warfarin [Coumadin] 5 mg PO 1400 05/20/21 05/20/21 guaiFENesin [Mucinex] 600 mg PO BID 05/20/21 05/20/21 - Allergies Allergies/Adverse Reactions: Allergies Allergy/AdvReac Type Severity Reaction Status Date / Time No Known Drug Allergies Allergy Verified 05/20/21 11:21 - Social History Does the pt smoke?: No Smoking Status: Never smoker Does the pt drink ETOH?: Yes Does the pt have substance abuse?: No - Immunizations Immunizations are current?: Yes - POLST Patient has POLST: Yes POLST Status: DNR (Patient states she has not filled out a POLST however wishes to have DO NOT RESUSCITATE order status) PD ED PE EXPANDED - General General: Alert, No acute distress, Other (obese) - Neck Neck: Supple w/out meningeal sx, No tenderness - Cardiac Cardiac: Irregularly irregular, Radial strong equal, Other (Bilateral lower extremity pitting edema left greater than right.). No: Pedal strong equal (1+ pedal pulses; mottling to BLE but brisk cap refill appro 3 seconds) - Respiratory Respiratory: Clear to ausultation naun. No: Distress, Labored - Abdomen Abdomen: Normal Bowel sounds - Derm Derm: Normal color. No: Rash - Extremities Extremities: Pedal edema bilateral, Right calf TTP/cord, Left calf TTP/cord, Pedal Pulses Present, Other (Chronic hemosiderin staining bilateral lower extremities. Right lower lateral leg with extensive erythema and tenderness. Multiple open weeping lesions with serous drainage. Erythema measures 20 x 10 cmapproximately) Results - Vitals Vitals: Vital Signs - 24 hr 05/20/21 05/20/21 05/20/21 11:16 11:48 12:35 Temperature 36.5 C Heart Rate 69 76 71 Respiratory 16 16 Rate Blood Pressure 110/86 H 110/86 H 114/74 O2 Saturation 99 95 98 Oxygen O2 Source Room air - EKG (time done) 1141 Rate: Rate (enter#) (69) Rhythm: Atrial fibrillation Intervals: Normal MN, Prolonged QT QRS: Normal Ischemia: Q waves, Non specific changes Compare to prior EKG: Old EKG unavailable Computer interpretation: Agree with computer - Labs Labs: Laboratory Tests 05/20/21 05/20/21 05/20/21 11:45 11:45 11:45 WBC 7.4 RBC 4.73 Hgb 15.5 Hct 49.1 H MCV 103.8 H MCH 32.8 H MCHC 31.6 L RDW 14.1 Plt Count 214 MPV 9.1 Neut # (Auto) 5.7 Lymph # (Auto) 1.0 L [place] # (Auto) 0.6 Eos # (Auto) 0.1 Baso # (Auto) 0.1 Absolute Nucleated RBC 0.00 Nucleated RBC % 0.0 PT 36.4 H INR 3.3 H Sodium 140 Potassium 4.0 Chloride 95 L Carbon Dioxide 34 H Anion Gap 11.0 BUN 23 H Creatinine 1.2 H Estimated GFR (MDRD) 42 L Glucose 141 H Calcium 10.1 Total Bilirubin 1.1 H AST 20 ALT 27 Alkaline Phosphatase 83 B-Natriuretic Peptide Total Protein 6.8 Albumin 4.0 Globulin 2.8 Albumin/Globulin Ratio 1.4 Lipase 23 TSH 05/20/21 05/20/21 11:45 11:45 WBC RBC Hgb Hct MCV MCH MCHC RDW Plt Count MPV Neut # (Auto) Lymph # (Auto) [place] # (Auto) Eos # (Auto) Baso # (Auto) Absolute Nucleated RBC Nucleated RBC % PT INR Sodium Potassium Chloride Carbon Dioxide Anion Gap BUN Creatinine Estimated GFR (MDRD) Glucose Calcium Total Bilirubin AST ALT Alkaline Phosphatase B-Natriuretic Peptide 103 H Total Protein Albumin Globulin Albumin/Globulin Ratio Lipase TSH 2.46 - Rads (name of study) CXR Radiology: Final report received (Patchy opacities in right lung base which could represent atelectasis or pneumonia.) US DVT bilat Radiology: Final report received (Negative for DVT bilaterally) PD MEDICAL DECISION MAKING - ED course Complexity details: reviewed results, considered differential, d/w patient ED course: 86-year-old female presents emergency department for evaluation of bilateral lower extremity edema which has been a chronic problem since the hip surgery more than 3 years ago. But most concerning is that the right lower lateral leg has developed erythema and weeping skin. There have been no fevers. She reports compliance with her diuretics. Screening labs today show an unchanged hemoglobin and hematocrit without leukocytosis. There is no fever. INR is modestly elevated. Patient was advised to hold 1 dose of Coumadin and then resume taking normally. Ultrasound DVT did not show any blood clots but given the increased erythema tenderness and weeping of the right lower leg we will treat for cellulitis with doxycycline. 9 advised close follow-up with PCP as well as elevation of the lower extremities especially at nighttime. Also encouraged compression stocking use. Emergent worrisome return precautions were discussed. Departure - Departure Disposition: 01 Home, Self Care Clinical Impression: Cellulitis of right leg without foot, Elevated INR Edema Qualifiers: Edema type: unspecified Qualified Code(s): R60.9 - Edema, unspecified Condition: Stable Record reviewed to determine appropriate education?: Yes Instructions: ED Infec Skin Cellulitis Prescriptions: Doxycycline Hyclate 100 mg PO BID #14 tab Comments: Patria herrera are seen in the emergency department today for swelling in your lower legs that has been present for a number of years as well as increased weeping and redness of the right leg. The ultrasound did not show any blood clots. Most of your screening labs are at your baseline or un concerning however your INR is a little elevated today. I recommend you hold 1 dose of your Coumadin and then begin taking as directed. To help treat the infection in the leg I prescribed doxycycline. You are to take this twice a day for the next week. This is has been sent to the [facility] in [place]. It is important that you continue to take your spironolactone as well as your Lasix daily. Elevating your legs as much as possible especially at night above the level of your heart will help reduce the swelling. As the swelling improves I recommend you wear your compression stockings. Please follow-up with your primary care provider for reevaluation in the next 2 weeks. Because you are taking an antibiotic at this can cause your INR to be elevated so I do recommend that you have your INR checked more frequently while you are on the antibiotic. At any point you have fevers, shortness of air difficulty breathing then please return immediately to the ER for second evaluation.
[2021-05-20 11:48] LABS: BASOPHILS # (AUTO) 0.1 10^3/uL (0.0-0.1); BASOPHILS % (AUTO) 0.7 %; EOSINOPHILS # (AUTO) 0.1 10^3/uL (0.0-0.7); EOSINOPHILS % (AUTO) 1.9 %; HCT - HEMATOCRIT 49.1 % (37.0-47.0); HGB - HEMOGLOBIN 15.5 g/dL (12.0-16.0); MEAN CORPUSCULAR HEMOGLOBIN 32.8 pg (27.0-31.0); MEAN CORPUSCULAR HGB CONC 31.6 g/dL (32.0-36.0); MEAN CORPUSCULAR VOLUME 103.8 fL (81.0-99.0); MEAN PLATELET VOLUME 9.1 fL (7.9-10.8); MONOCYTES # (AUTO) 0.6 10^3/uL (0.0-1.0); MONOCYTES % (AUTO) 7.5 %; NEUTROPHILS # (AUTO) 5.7 10^3/uL (1.5-6.6); NEUTROPHILS % (AUTO) 76.5 %; PLT - PLATELET COUNT 214 10^3/uL (130-450); RED BLOOD COUNT 4.73 10^6/uL (4.20-5.40); RED CELL DISTRIBUTION WIDTH 14.1 % (12.0-15.0); WHITE BLOOD COUNT 7.4 x10^3/uL (4.8-10.8)
[2021-05-20 11:55] LABS: INR 3.3 (0.8-1.2); PT - PROTHROMBIN TIME 36.4 secs (9.9-12.6)
--- NOTE | 2021-05-20 12:03 | XRAY Report ---
PROCEDURE: Chest 1 View X-Ray INDICATIONS: chest pain TECHNIQUE: One view of the chest was acquired. COMPARISON: 11/08/2018 FINDINGS: Surgical changes and devices: None. Lungs and pleura: No pleural effusions or pneumothorax. Mild hyperinflation of the lungs with flatte ken of hemidiaphragms suggesting COPD. Mild prominence of the interstitium stable compared to prior exam compatible with chronic lung disease. Patchy opacities noted in the right lung base which could represent atelectasis or developing pneumonia. Mediastinum: Mediastinal contours appear normal. Heart at the upper limits of normal in size. Bones and chest wall: No suspicious bony lesions. Overlying soft tissues appear unremarkable. IMPRESSION: Patchy opacities in right lung base which could represent atelectasis or pneumonia. Reviewed by: Brenda Valverde MD, PhD on 05/20/2021 12:02 PM PDT Approved by: Brenda Valverde MD, PhD on 05/20/2021 12:02 PM PDT Station ID: [id number]
[2021-05-20 12:08] LABS: ALBUMIN/GLOBULIN RATIO 1.4 (1.0-2.2); BILIRUBIN,TOTAL 1.1 mg/dL (0.2-1.0); CALCIUM 10.1 mg/dL (8.5-10.3); CREATININE 1.2 mg/dL (0.4-1.0); TOTAL PROTEIN 6.8 g/dL (6.7-8.2)
[2021-05-20 12:36] VITALS: BP 114/74
--- NOTE | 2021-05-20 12:56 | Ultrasound Report ---
PROCEDURE: Duplex Ext Veins Bilateral INDICATIONS: DARIAN GOLDBERG TECHNIQUE: Real-time imaging, as well as color and pulse Doppler interrogation, were performed of the deep veins of both legs from the inguinal ligament to the popliteal fossa. COMPARISON: None FINDINGS: The deep veins are normally compressible, and free of intraluminal thrombus. Color and pu lse Doppler demonstrate normal phasic intravascular flow. There is normal augmentation response to d istal compression maneuver. Popliteal fossa cyst is noted on the right measuring 5.3 x 1.4 x 2.7 cm. Left popliteal fossa cyst is present measuring 1.8 x 0.7 x 1.5 cm. IMPRESSION: No deep venous thrombosis. Bilateral Rodrigues's cyst. Reviewed by: Annie Juarez MD on 05/20/2021 12:54 PM PDT Approved by: Annie Juarez MD on 05/20/2021 12:54 PM PDT Station ID: [id number]
== END 2021-05-20 13:07 | disposition home or self-care (01) ==
LOC: EDUNIT# → ED 11:07
DX: L03.115 Cellulitis of right lower limb (principal); R60.0 Localized edema; R79.1 Abnormal coagulation profile; I48.91 Unspecified atrial fibrillation; Z79.01 Long term (current) use of anticoagulants; Z66 Do not resuscitate
CPT/HCPCS: 36415; 80053; 83690; 83880; 84443; 85025; 85610; 93005; 93970; 99283; 99284

== ENCOUNTER 2021-06-16 08:00 | Outpatient (CLI) | payer MEDICARE | END 2021-06-16 23:59 | disposition home or self-care (01) | LOC: LAB 08:00 | PROVIDERS: ATTEND Family Medicine | DX: R30.0 Dysuria (principal) | CPT/HCPCS: 87086 ==

== ENCOUNTER 2021-06-24 14:56 | Outpatient (CLI) | payer MEDICARE ==
[2021-06-24 16:03] LABS: BILIRUBIN,URINE NEGATIVE (NEGATIVE); GLUCOSE, URINE (UA) NEGATIVE (NEGATIVE); KETONES,URINE (UA) NEGATIVE (NEGATIVE); LEUKOCYTE ESTERASE, URINE LARGE (NEGATIVE); NITRITE,URINE POSITIVE (NEGATIVE); OCCULT BLOOD,URINE TRACE-INTA (NEGATIVE); PH,URINE 6.5 PH (5.0-7.5); PROTEIN,URINE NEGATIVE (NEGATIVE); UROBILINOGEN,URINE 0.2 (NORMAL) E.U./dL (NORMAL)
[2021-06-24 16:12] LABS: CLARITY,URINE HAZY (CLEAR)
[2021-06-24 16:13] LABS: BACTERIA,URINE Moderate /HPF (None Seen); SQUAMOUS EPITHELIAL CELL,UR NONE SEEN (<= Few); WBC,URINE >25 /HPF (0-5)
== END 2021-06-24 14:57 | disposition home or self-care (01) ==
LOC: LAB 14:56
PROVIDERS: ATTEND Physician Assistant Medical
DX: R30.0 Dysuria (principal); I48.91 Unspecified atrial fibrillation
CPT/HCPCS: 36416; 81001; 81003; 85610; 87077; 87086; 87181

== ENCOUNTER 2021-07-02 12:23 | Outpatient (CLI) | payer MEDICARE | END 2021-07-02 12:24 | disposition home or self-care (01) | LOC: LAB 12:23 | PROVIDERS: ATTEND Physician Assistant Medical | DX: I48.91 Unspecified atrial fibrillation (principal) | CPT/HCPCS: 36416; 85610 ==

== ENCOUNTER 2021-07-20 14:19 | Outpatient (CLI) | payer MEDICARE | END 2021-07-20 14:20 | disposition home or self-care (01) | LOC: LAB 14:19 | PROVIDERS: ATTEND Physician Assistant Medical | DX: I48.91 Unspecified atrial fibrillation (principal) | CPT/HCPCS: 36416; 85610 ==

== ENCOUNTER 2021-08-10 15:13 | Outpatient (CLI) | payer MEDICARE | END 2021-08-10 15:14 | disposition home or self-care (01) | LOC: LAB 15:13 | PROVIDERS: ATTEND Physician Assistant Medical | DX: I48.91 Unspecified atrial fibrillation (principal) | CPT/HCPCS: 36416; 85610 ==

== ENCOUNTER 2021-08-22 09:03 | Outpatient (CLI) | payer MEDICARE | END 2021-08-22 09:04 | disposition critical access hospital (66) | LOC: EMS 09:03 | DX: R41.82 Altered mental status, unspecified (principal) | CPT/HCPCS: A0425; A0427 ==

== ENCOUNTER 2021-08-22 09:08 | Emergency (ER) | payer MEDICARE ==
[2021-08-22] MEDS ORDERED: SODIUM CHLORIDE 0.9% 500 ML IV STA (09:27)
--- NOTE | 2021-08-22 09:30 | ED Physician Documentation ---
PD HPI ALTERED MENTAL STATUS - Stated complaint Stated Complaint: AMS - History obtained from History obtained from: Patient, EMS - History of Present Illness Timing - onset: Today Timing - duration: Hours Timing - details: Abrupt onset, Still present in ED (improved) Quality / character: Less responsive, Confused Associated symptoms: Cough (similar to always), General weakness. No: Fever, Headache, Stiff neck, Dyspnea, NVD, Urinary sx, Focal weakness, Seizure activity, Syncope Contributing factors: Anticoagulated Basline status: Alert and oriented X 3, Ambulatory Similar symptoms before: Has not had sx before Recently seen: Clinic - Additional information Additional information: 86-year-old female with a history of atrial fibrillation on Coumadin, COPD and severe venous stasis disease has recently been into her primary and has had her diuretic dose increased. This morning she is noted to be less responsive than usual and medics were called to her home. The patient states that she sleeps in recliner she does have a wedge pillow under her legs and despite that she continues to have significant swelling and venous stasis. Review of Systems Constitutional: denies: Fever Eyes: denies: Decreased vision Ears: denies: Ear pain Nose: denies: Congestion Throat: denies: Sore throat Cardiac: denies: Chest pain / pressure, Palpitations Respiratory: reports: Dyspnea (similar to always), Cough (similar to always) GI: denies: Abdominal Pain, Nausea, Vomiting, Constipation, Diarrhea : reports: Frequency. denies: Dysuria Skin: denies: Rash Musculoskeletal: reports: Extremity pain, Extremity swelling. denies: Neck pain, Back pain Neurologic: reports: Confused, Altered mental status. denies: Generalized weakness, Focal weakness, Numbness, Difficulty speaking, Headache, Head injury, LOC PD PAST MEDICAL HISTORY - Past Medical History Cardiovascular: Hypertension, Atrial fibrillation Respiratory: COPD Endocrine/Autoimmune: HyPOthyroidism GI: Chronic constipation : Frequency HEENT: None Psych: None Musculoskeletal: Osteoporosis Derm: None - Past Surgical History Past Surgical History: Yes General: Other - Present Medications Home Medications: Ambulatory Orders Medication Instructions Recorded Confirmed Atenolol 25 mg PO QPM 12/21/12 08/22/21 Levothyroxine Sodium [Levothroid] 100 mcg PO QDAC 12/21/12 08/22/21 Tiotropium [Spiriva] 1 puffs INH DAILY 12/21/12 08/22/21 Budesonide/Formoterol Fumarate 2 puffs ORAL BID 04/11/17 08/22/21 [Symbicort 160-4.5 Mcg Inhaler] Spironolactone 25 mg PO BID 09/05/17 08/22/21 Acetaminophen [Tylenol] 1 tab PO Q6HR 05/16/18 08/22/21 Calcium Carbonate/Vitamin D3 1 tab PO DAILY 05/16/18 08/22/21 [Calcium 500 mg-Vit D3 600 Unit] Cholecalciferol (Vitamin D3) 2 cap PO DAILY 05/16/18 08/22/21 [Vitamin D3] Cyclobenzaprine [Flexeril] 0.5 tab PO TID PRN 05/16/18 08/22/21 Magnesium Oxide [Magnesium] 400 mg PO DAILY 05/16/18 05/16/18 [place]-3S/Dha/Epa/Fish Oil [Fish 1 cap PO DAILY 05/16/18 05/16/18 Oil [place]-3 Softgel] Ubidecarenone [Co Q-10] 400 mg PO DAILY 05/16/18 05/16/18 Zoledronic Acid/Mannitol&Water 1 applic IM ONCE 05/16/18 05/16/18 [Reclast 5 mg/100 ml Solution] Amitriptyline [Elavil] 25 mg PO QPM 05/20/21 08/22/21 Doxycycline Hyclate 100 mg PO BID #14 tab 05/20/21 Furosemide [Lasix] 20 mg PO QPM 05/20/21 08/22/21 Furosemide [Lasix] 40 mg PO DAILY 05/20/21 08/22/21 Pramipexole [Mirapex] 0.25 mg PO HS 05/20/21 08/22/21 Warfarin [Coumadin] 5 mg PO 1400 05/20/21 08/22/21 guaiFENesin [Mucinex] 600 mg PO BID 05/20/21 08/22/21 - Allergies Allergies/Adverse Reactions: Allergies Allergy/AdvReac Type Severity Reaction Status Date / Time No Known Drug Allergies Allergy Verified 05/20/21 11:21 - Social History Does the pt smoke?: No Smoking Status: Never smoker Does the pt drink ETOH?: Yes Does the pt have substance abuse?: No - Immunizations Immunizations are current?: Yes - POLST Patient has POLST: Yes POLST Status: DNR (Patient states she has not filled out a POLST however wishes to have DO NOT RESUSCITATE order status) PD ED PE NORMAL - Vitals Vital signs reviewed: Yes - General General: Alert and oriented X 3, No acute distress, Well developed/nourished - HEENT HEENT: Atraumatic, PERRL, EOMI - Neck Neck: Supple, no meningeal sign, No bony TTP - Cardiac Cardiac: Other (irregularly irregular rapid heart rate (110)) - Respiratory Respiratory: No respiratory distress, Other (inspritory and expiratory wheezes with fair air movement and no focal rhonchi) - Abdomen Abdomen: Soft, Non tender - Back Back: No CVA TTP, No spinal TTP - Derm Derm: Normal color, Warm and dry - Extremities Extremities: Other (bilateral pitting edema and color change of chronic venous stasis disease. Lots of pedal edema some skin breakdown. 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, No motor deficit, No sensory deficit, Normal speech (speech latency has resolved according to paramedics.) Eye Opening: Spontaneous Motor: Obeys Commands Verbal: Oriented GCS Score: 15 - Psych Psych: Normal mood, Normal affect Results - Vitals Vitals: Vital Signs - 24 hr 08/22/21 08/22/21 08/22/21 09:19 09:37 12:10 Temperature 36.8 C 36.4 C L Heart Rate 106 H 97 99 Respiratory 20 20 24 Rate Blood Pressure 120/73 188/77 H 126/78 O2 Saturation 93 93 91 L Oxygen O2 Source Room air - Labs Labs: Laboratory Tests 08/22/21 08/22/21 08/22/21 09:47 09:47 10:00 WBC 15.1 H RBC 4.94 Hgb 16.1 H Hct 48.4 H MCV 98.0 MCH 32.6 H MCHC 33.3 RDW 13.9 Plt Count 203 MPV 9.4 Neut # (Auto) 13.9 H Lymph # (Auto) 0.4 L [place] # (Auto) 0.7 Eos # (Auto) 0.0 Baso # (Auto) 0.1 Absolute Nucleated RBC 0.00 Nucleated RBC % 0.0 PT 49.0 H INR 4.4 H Sodium 133 L Potassium 4.6 Chloride 98 L Carbon Dioxide 23 Anion Gap 12.0 BUN 40 H Creatinine 1.4 H Estimated GFR (MDRD) 35 L Glucose 189 H Lactic Acid Calcium 9.8 Total Bilirubin 1.5 H AST 26 ALT 28 Alkaline Phosphatase 48 Total Protein 6.7 Albumin 3.9 Globulin 2.8 Albumin/Globulin Ratio 1.4 Lipase 19 L Urine Color Urine Clarity Urine pH Ur Specific [place] Urine Protein Urine Glucose (UA) Urine Ketones Urine Occult Blood Urine Nitrite Urine Bilirubin Urine Urobilinogen Ur Leukocyte Esterase Ur Microscopic Review Urine Culture Comments 08/22/21 08/22/21 10:00 10:34 WBC RBC Hgb Hct MCV MCH MCHC RDW Plt Count MPV Neut # (Auto) Lymph # (Auto) [place] # (Auto) Eos # (Auto) Baso # (Auto) Absolute Nucleated RBC Nucleated RBC % PT INR Sodium Potassium Chloride Carbon Dioxide Anion Gap BUN Creatinine Estimated GFR (MDRD) Glucose Lactic Acid 1.9 Calcium Total Bilirubin AST ALT Alkaline Phosphatase Total Protein Albumin Globulin Albumin/Globulin Ratio Lipase Urine Color YELLOW Urine Clarity CLEAR Urine pH 6.0 Ur Specific [place] 1.015 Urine Protein NEGATIVE Urine Glucose (UA) NEGATIVE Urine Ketones TRACE Urine Occult Blood NEGATIVE Urine Nitrite NEGATIVE Urine Bilirubin NEGATIVE Urine Urobilinogen 0.2 (NORMAL) Ur Leukocyte Esterase NEGATIVE Ur Microscopic Review NOT INDICATED Urine Culture Comments NOT INDICATED - Rads (name of study) CT head w/o Radiology: Prelim report reviewed (Impression: No acute intracranial abnormality.), EMP read indepedently, See rad report Procedures - IVC sono (time) 0920 Bedside IVC sono: IVC measures (cm) (1.67), IVC collapsed c insp (cm) (complete), Dehydration (est < 1 liter deficit) PD MEDICAL DECISION MAKING - ED course Complexity details: reviewed old records, reviewed results, re-evaluated patient, considered differential, d/w patient ED course: 86-year-old female history of venous stasis disease has had her diuretic increased this week and today she is found to be less responsive. She has some improvement even in route to the hospital without specific intervention. She is found to be mildly dehydrated on interrogation the inferior vena cava. She has complete collapse with a fair sized vessel. I suspect this is the reason behind her decreased level of consciousness this morning and today it appears this has resolved by arrival to the emergency department. We will provide 500 mls of saline and we have wrapped the patient's legs. I discussed with the patient wrapping her legs 3 times a day with assistance. She does sleep in a recliner and claims that for the most part she has her legs up. Very suspicious for the major cause of her venous stasis. Departure - Departure Disposition: 01 Home, Self Care Clinical Impression: Supratherapeutic INR, Dehydration determined by examination, Venous stasis of both lower extremities Instructions: International Normalized Ratio, Chronic Venous Insufficiency, ED Dehydration Follow-Up: Aria Warren PA-C [Primary Care Provider] - Comments: Patria today it looks like the increased use of diuretic has led to some dehydration despite having additional fluid retained on your body. You will still need to use these diuretics. My recommendation for treatment of your legs is to use an Johnathan wrap as compression and have someone else place these c ompression dressings on you 3 times per day. Have them place them, leave them on for several hours, remove them and replace them again. Over a period of weeks to months your legs should improve. They likely are swollen this way related to having to sleep in a recliner. Today your INR was elevated and the recommendation is to not take your warfarin for 2 days and follow-up with Dr. Warren for instructions on additional warfarin.
[2021-08-22 10:07] LABS: BASOPHILS # (AUTO) 0.1 10^3/uL (0.0-0.1); BASOPHILS % (AUTO) 0.4 %; EOSINOPHILS % (AUTO) 0.1 %; HCT - HEMATOCRIT 48.4 % (37.0-47.0); HGB - HEMOGLOBIN 16.1 g/dL (12.0-16.0); LYMPHOCYTES # (AUTO) 0.4 10^3/uL (1.5-3.5); LYMPHOCYTES % (AUTO) 2.6 %; MEAN CORPUSCULAR HEMOGLOBIN 32.6 pg (27.0-31.0); MEAN CORPUSCULAR HGB CONC 33.3 g/dL (32.0-36.0); MEAN PLATELET VOLUME 9.4 fL (7.9-10.8); MONOCYTES # (AUTO) 0.7 10^3/uL (0.0-1.0); MONOCYTES % (AUTO) 4.4 %; NEUTROPHILS # (AUTO) 13.9 10^3/uL (1.5-6.6); NEUTROPHILS % (AUTO) 91.8 %; PLT - PLATELET COUNT 203 10^3/uL (130-450); RED BLOOD COUNT 4.94 10^6/uL (4.20-5.40); RED CELL DISTRIBUTION WIDTH 13.9 % (12.0-15.0); WHITE BLOOD COUNT 15.1 x10^3/uL (4.8-10.8)
[2021-08-22 10:12] LABS: INR 4.4 (0.8-1.2)
[2021-08-22 10:19] LABS: ALBUMIN 3.9 g/dL (3.2-5.5); ALBUMIN/GLOBULIN RATIO 1.4 (1.0-2.2); BILIRUBIN,TOTAL 1.5 mg/dL (0.2-1.0); CALCIUM 9.8 mg/dL (8.5-10.3); CREATININE 1.4 mg/dL (0.4-1.0); POTASSIUM 4.6 mmol/L (3.5-5.0); TOTAL PROTEIN 6.7 g/dL (6.7-8.2)
[2021-08-22 10:39] LABS: BILIRUBIN,URINE NEGATIVE (NEGATIVE); GLUCOSE, URINE (UA) NEGATIVE (NEGATIVE); KETONES,URINE (UA) TRACE mg/dL (NEGATIVE); LEUKOCYTE ESTERASE, URINE NEGATIVE (NEGATIVE); NITRITE,URINE NEGATIVE (NEGATIVE); OCCULT BLOOD,URINE NEGATIVE (NEGATIVE); PROTEIN,URINE NEGATIVE (NEGATIVE); UROBILINOGEN,URINE 0.2 (NORMAL) E.U./dL (NORMAL)
[2021-08-22 10:40] LABS: CLARITY,URINE CLEAR (CLEAR)
--- NOTE | 2021-08-22 12:41 | CT Report ---
PROCEDURE: HEAD WO INDICATIONS: altered LOC coumadin TECHNIQUE: Noncontrast 4.5 mm thick angled axial sections acquired from the foramen magnum to the vertex. For r adiation dose reduction, the following was used: automated exposure control, adjustment of mA and/or kV according to patient size. COMPARISON: Head CT dated 04/15/2021. FINDINGS: Image quality: Excellent. CSF spaces: Basal cisterns are patent. No extra-axial fluid collections. Ventricles are normal in size and shape. Brain: No midline shift. No intracranial masses or hemorrhage. Parenchymal calcifications within t he left frontoparietal lobes, as before. Sidhu-white matter interface is normal. Skull and face: Calvarium and visualized facial bones are intact, without suspicious lesions. Sinuses: Visualized sinuses and mastoids are clear. IMPRESSION: No acute intracranial abnormality. Reviewed by: Deysi Espinoza MD on 08/22/2021 12:39 PM PST Approved by: Deysi Espinoza MD on 08/22/2021 12:39 PM PST Station ID: [id number]
[2021-08-22 13:45] VITALS: BP 124/80
== END 2021-08-22 13:44 | disposition home or self-care (01) ==
LOC: EDUNIT# → ED 09:08
DX: E86.0 Dehydration (principal); R41.0 Disorientation, unspecified; R79.1 Abnormal coagulation profile; I87.8 Other specified disorders of veins; L97.901 Non-pressure chronic ulcer of unspecified part of unspecified lower leg limited to breakdown of skin; I10 Essential (primary) hypertension; I48.91 Unspecified atrial fibrillation; Z79.01 Long term (current) use of anticoagulants; J44.9 Chronic obstructive pulmonary disease, unspecified; Z66 Do not resuscitate
CPT/HCPCS: 36415; 80053; 81001; 81003; 83605; 83690; 85025; 85610; 87086; 96360; 99284

== ENCOUNTER 2021-08-25 11:42 | Outpatient (CLI) | payer MEDICARE | END 2021-08-25 11:43 | disposition home or self-care (01) | LOC: LAB 11:42 | PROVIDERS: ATTEND Physician Assistant Medical | DX: I48.91 Unspecified atrial fibrillation (principal) | CPT/HCPCS: 36416; 85610 ==

== ENCOUNTER 2021-08-27 11:36 | Outpatient (CLI) | payer MEDICARE | END 2021-08-27 11:37 | disposition home or self-care (01) | LOC: LAB 11:36 | PROVIDERS: ATTEND Physician Assistant Medical | DX: I48.91 Unspecified atrial fibrillation (principal) | CPT/HCPCS: 36416; 85610 ==

== ENCOUNTER 2021-08-28 11:15 | Outpatient (CLI) | payer MEDICARE ==
[2021-08-28 11:44] LABS: BASOPHILS # (AUTO) 0.1 10^3/uL (0.0-0.1); BASOPHILS % (AUTO) 0.7 %; EOSINOPHILS # (AUTO) 0.2 10^3/uL (0.0-0.7); EOSINOPHILS % (AUTO) 1.6 %; HCT - HEMATOCRIT 45.3 % (37.0-47.0); HGB - HEMOGLOBIN 14.7 g/dL (12.0-16.0); LYMPHOCYTES # (AUTO) 1.5 10^3/uL (1.5-3.5); LYMPHOCYTES % (AUTO) 15.5 %; MEAN CORPUSCULAR HEMOGLOBIN 32.3 pg (27.0-31.0); MEAN CORPUSCULAR HGB CONC 32.5 g/dL (32.0-36.0); MEAN CORPUSCULAR VOLUME 99.6 fL (81.0-99.0); MONOCYTES # (AUTO) 1.1 10^3/uL (0.0-1.0); MONOCYTES % (AUTO) 11.5 %; NEUTROPHILS # (AUTO) 6.5 10^3/uL (1.5-6.6); NEUTROPHILS % (AUTO) 66.8 %; PLT - PLATELET COUNT 305 10^3/uL (130-450); RED BLOOD COUNT 4.55 10^6/uL (4.20-5.40); WHITE BLOOD COUNT 9.7 x10^3/uL (4.8-10.8)
[2021-08-28 11:50] LABS: CALCIUM 9.9 mg/dL (8.5-10.3); CREATININE 1.2 mg/dL (0.4-1.0); POTASSIUM 4.9 mmol/L (3.5-5.0)
== END 2021-08-28 11:16 | disposition home or self-care (01) ==
LOC: LAB 11:15
PROVIDERS: ATTEND Internal Medicine Cardiovascular Disease
DX: I10 Essential (primary) hypertension (principal)
CPT/HCPCS: 36415; 80048; 85025

== ENCOUNTER 2021-09-16 16:34 | Outpatient (CLI) | payer MEDICARE | END 2021-09-16 16:35 | disposition home or self-care (01) | LOC: LAB 16:34 | PROVIDERS: ATTEND Physician Assistant Medical | DX: I48.91 Unspecified atrial fibrillation (principal) | CPT/HCPCS: 36416; 85610 ==

== ENCOUNTER 2021-09-17 09:00 | Outpatient (CLI) | payer MEDICARE ==
[2021-09-17 09:41] LABS: BASOPHILS % (AUTO) 0.6 %; EOSINOPHILS # (AUTO) 0.1 10^3/uL (0.0-0.7); EOSINOPHILS % (AUTO) 2.1 %; HCT - HEMATOCRIT 47.1 % (37.0-47.0); HGB - HEMOGLOBIN 15.2 g/dL (12.0-16.0); LYMPHOCYTES # (AUTO) 1.2 10^3/uL (1.5-3.5); LYMPHOCYTES % (AUTO) 17.9 %; MEAN CORPUSCULAR HEMOGLOBIN 31.8 pg (27.0-31.0); MEAN CORPUSCULAR HGB CONC 32.3 g/dL (32.0-36.0); MEAN CORPUSCULAR VOLUME 98.5 fL (81.0-99.0); MEAN PLATELET VOLUME 8.8 fL (7.9-10.8); MONOCYTES # (AUTO) 0.7 10^3/uL (0.0-1.0); MONOCYTES % (AUTO) 10.2 %; NEUTROPHILS # (AUTO) 4.5 10^3/uL (1.5-6.6); NEUTROPHILS % (AUTO) 68.4 %; PLT - PLATELET COUNT 284 10^3/uL (130-450); RED BLOOD COUNT 4.78 10^6/uL (4.20-5.40); WHITE BLOOD COUNT 6.6 x10^3/uL (4.8-10.8)
[2021-09-17 09:59] LABS: BUN - BLOOD UREA NITROGEN 34 mg/dL (6-20); CALCIUM 9.4 mg/dL (8.5-10.3); CARBON DIOXIDE - CO2 28 mmol/L (21-32); CHLORIDE 98 mmol/L (101-111); CHOL/HDL RATIO 2.4 (<4.4); CHOLESTEROL 119 mg/dL; CREATININE 1.3 mg/dL (0.4-1.0); GFR - MDRD 39 (>89); GLUCOSE 109 mg/dL (70-100); HDL CHOLESTEROL 49 mg/dL; LDL CHOLESTEROL,CALCULATED 58 mg/dL; LDL/HDL RATIO 1.2 (<4.4); POTASSIUM 3.9 mmol/L (3.5-5.0); SODIUM 136 mmol/L (135-145); TRIGLYCERIDES 58 mg/dL; VLDL CHOLESTEROL 12 mg/dL
== END 2021-09-17 09:01 | disposition home or self-care (01) ==
LOC: LAB 09:00
PROVIDERS: ATTEND Internal Medicine Cardiovascular Disease
DX: I11.0 Hypertensive heart disease with heart failure (principal); I50.33 Acute on chronic diastolic (congestive) heart failure
CPT/HCPCS: 36415; 80048; 80061; 83721; 85025

== ENCOUNTER 2021-09-23 14:19 | Outpatient (CLI) | payer MEDICARE | END 2021-09-23 14:20 | disposition home or self-care (01) | LOC: LAB 14:19 | PROVIDERS: ATTEND Physician Assistant Medical | DX: I48.91 Unspecified atrial fibrillation (principal) | CPT/HCPCS: 36416; 85610 ==

== ENCOUNTER 2021-10-04 12:35 | Outpatient (CLI) | payer MEDICARE | END 2021-10-04 12:36 | disposition home or self-care (01) | LOC: LAB 12:35 | PROVIDERS: ATTEND Physician Assistant Medical | DX: I48.91 Unspecified atrial fibrillation (principal) | CPT/HCPCS: 36416; 85610 ==

== ENCOUNTER 2021-10-15 15:05 | Outpatient (CLI) | payer MEDICARE | END 2021-10-15 15:06 | disposition home or self-care (01) | LOC: LAB 15:05 | PROVIDERS: ATTEND Physician Assistant Medical | DX: I48.91 Unspecified atrial fibrillation (principal) | CPT/HCPCS: 36416; 85610 ==

== ENCOUNTER 2021-10-27 22:13 | Outpatient (CLI) | payer MEDICARE | END 2021-10-27 23:59 | disposition critical access hospital (66) | LOC: EMS 22:13 | DX: R06.02 Shortness of breath (principal); R07.1 Chest pain on breathing; R07.89 Other chest pain; R05.9 Cough, unspecified | CPT/HCPCS: A0425; A0429 ==

== ENCOUNTER 2021-10-27 22:18 | Emergency (ER) | payer MEDICARE ==
[2021-10-27] MEDS ORDERED: IPRATROPIUM/ALBUTEROL 3 ML NEB INH STA (22:52)
--- NOTE | 2021-10-27 22:52 | ED Physician Documentation ---
History of Present Illness - Stated complaint Stated Complaint: SOA,CHF, EMPHASEMA, COUGH AND PRESSURE - Chief complaint Chief Complaint: Resp - History obtained from History obtained from: Patient - Additonal information Additional information: 86-year-old woman with history of A. fib on warfarin, CHF, Emphysema/chronic bronchitis, presents with increased coughing over the past week that is nonprod uctive associated with worsening coughing fits at night and burning sensation in the chest as well as feeling of dizziness and generalized malaise. She called EMS and upon arrival was found to be 88% on room air. She does not use oxygen at home. Patient was placed on 3 L and improved to 95%. Patient is limited historian. Review of Systems Unable to obtain: Other (limited historian) PD PAST MEDICAL HISTORY - Past Medical History Cardiovascular: Hypertension, Atrial fibrillation Respiratory: COPD Endocrine/Autoimmune: HyPOthyroidism GI: Chronic constipation : Frequency HEENT: None Psych: None Musculoskeletal: Osteoporosis Derm: None - Past Surgical History Past Surgical History: Yes General: Other - Present Medications Home Medications: Ambulatory Orders Medication Instructions Recorded Confirmed Atenolol 25 mg PO QPM 12/21/12 08/22/21 Levothyroxine Sodium [Levothroid] 100 mcg PO QDAC 12/21/12 08/22/21 Tiotropium [Spiriva] 1 puffs INH DAILY 12/21/12 08/22/21 Budesonide/Formoterol Fumarate 2 puffs ORAL BID 04/11/17 08/22/21 [Symbicort 160-4.5 Mcg Inhaler] Spironolactone 25 mg PO BID 09/05/17 08/22/21 Acetaminophen [Tylenol] 1 tab PO Q6HR 05/16/18 08/22/21 Calcium Carbonate/Vitamin D3 1 tab PO DAILY 05/16/18 08/22/21 [Calcium 500 mg-Vit D3 600 Unit] Cholecalciferol (Vitamin D3) 2 cap PO DAILY 05/16/18 08/22/21 [Vitamin D3] Cyclobenzaprine [Flexeril] 0.5 tab PO TID PRN 05/16/18 08/22/21 Magnesium Oxide [Magnesium] 400 mg PO DAILY 05/16/18 05/16/18 [place]-3S/Dha/Epa/Fish Oil [Fish 1 cap PO DAILY 05/16/18 05/16/18 Oil [place]-3 Softgel] Ubidecarenone [Co Q-10] 400 mg PO DAILY 05/16/18 05/16/18 Zoledronic Acid/Mannitol&Water 1 applic IM ONCE 05/16/18 05/16/18 [Reclast 5 mg/100 ml Solution] Amitriptyline [Elavil] 25 mg PO QPM 05/20/21 08/22/21 Doxycycline Hyclate 100 mg PO BID #14 tab 05/20/21 Furosemide [Lasix] 20 mg PO QPM 05/20/21 08/22/21 Furosemide [Lasix] 40 mg PO DAILY 05/20/21 08/22/21 Pramipexole [Mirapex] 0.25 mg PO HS 05/20/21 08/22/21 Warfarin [Coumadin] 5 mg PO 1400 05/20/21 08/22/21 guaiFENesin [Mucinex] 600 mg PO BID 05/20/21 08/22/21 - Allergies Allergies/Adverse Reactions: Allergies Allergy/AdvReac Type Severity Reaction Status Date / Time No Known Drug Allergies Allergy Verified 10/27/21 22:32 - Social History Does the pt smoke?: No Smoking Status: Never smoker Does the pt drink ETOH?: Yes Does the pt have substance abuse?: No - Immunizations Immunizations are current?: Yes - POLST Patient has POLST: Yes POLST Status: DNR (Patient states she has not filled out a POLST however wishes to have DO NOT RESUSCITATE order status) PD ED PE NORMAL - Vitals Vital signs reviewed: Yes - General General: Other (hacking nonproductive cough. alert and oriented. elderly appearing) - HEENT HEENT: Atraumatic, PERRL, EOMI, Moist mucous membranes, Pharynx benign - Neck Neck: Supple, no meningeal sign - Cardiac Cardiac: RRR - Respiratory Respiratory: Other (BL rales, wheezing) - Abdomen Abdomen: Non tender, Non distended - Derm Derm: Normal color, Warm and dry - Extremities Extremities: No deformity - Neuro Neuro: No motor deficit, No sensory deficit, Normal speech - Psych Psych: Normal mood, Normal affect Results - Vitals Vitals: Vital Signs - 24 hr 10/27/21 10/27/21 10/27/21 22:28 22:32 22:58 Temperature 35.3 C L Heart Rate 88 96 82 Respiratory 22 22 Rate Blood Pressure 105/74 O2 Saturation 90 L 96 10/27/21 10/27/21 10/27/21 23:00 23:18 23:35 Temperature Heart Rate 84 92 85 Respiratory 13 24 24 Rate Blood Pressure 107/72 102/73 O2 Saturation 94 10/28/21 00:00 Temperature Heart Rate 85 Respiratory 24 Rate Blood Pressure 101/65 O2 Saturation 93 Oxygen O2 Source Nasal cannula Oxygen Flow Rate 3 - Labs Labs: Laboratory Tests 10/27/21 10/27/21 10/27/21 22:56 22:56 22:56 WBC 7.9 RBC 4.79 Hgb 15.4 Hct 47.4 H MCV 99.0 MCH 32.2 H MCHC 32.5 RDW 13.9 Plt Count 241 MPV 9.3 Neut # (Auto) 5.7 Lymph # (Auto) 1.4 L Carlton # (Auto) 0.7 Eos # (Auto) 0.2 Baso # (Auto) 0.0 Absolute Nucleated RBC 0.00 Nucleated RBC % 0.0 VBG pH 7.385 VBG pCO2 56.8 H VBG pO2 39.8 VBG HCO3 33.2 H VBG Total CO2 35.0 H VBG O2 Saturation 76.3 VBG Base Excess 6.2 H Sodium Potassium Chloride Carbon Dioxide Anion Gap BUN Creatinine Estimated GFR (MDRD) Glucose Calcium Total Bilirubin AST ALT Alkaline Phosphatase B-Natriuretic Peptide 140 H Total Protein Albumin Globulin Albumin/Globulin Ratio Lipase Nasal Adenovirus (PCR) Nasal B. parapertussis DNA (PCR) Nasal Coronavir 229E PCR Nasal Coronavir HKU1 PCR Nasal Coronavir NL63 PCR Nasal Coronavir OC43 PCR Nasal Enterovir/Rhinovir PCR Nasal Influenza B PCR Nasal Influenza A PCR Nasal Parainfluen 1 PCR Nasal Parainfluen 2 PCR Nasal Parainfluen 3 PCR Nasal Parainfluen 4 PCR Nasal RSV (PCR) Nasal B.pertussis DNA PCR Nasal C.pneumoniae (PCR) Cesar Human Metapneumo PCR Nasal M.pneumoniae (PCR) Nasal SARS-CoV-2 (PCR) 10/27/21 10/27/21 22:56 23:00 WBC RBC Hgb Hct MCV MCH MCHC RDW Plt Count MPV Neut # (Auto) Lymph # (Auto) Carlton # (Auto) Eos # (Auto) Baso # (Auto) Absolute Nucleated RBC Nucleated RBC % VBG pH VBG pCO2 VBG pO2 VBG HCO3 VBG Total CO2 VBG O2 Saturation VBG Base Excess Sodium 138 Potassium 3.8 Chloride 95 L Carbon Dioxide 32 Anion Gap 11.0 BUN 29 H Creatinine 1.5 H Estimated GFR (MDRD) 33 L Glucose 163 H Calcium 9.8 Total Bilirubin 0.7 AST 28 ALT 30 Alkaline Phosphatase 61 B-Natriuretic Peptide Total Protein 6.6 L Albumin 3.7 Globulin 2.9 Albumin/Globulin Ratio 1.3 Lipase 25 Nasal Adenovirus (PCR) NOT DETECTED Nasal B. parapertussis DNA (PCR) NOT DETECTED Nasal Coronavir 229E PCR NOT DETECTED Nasal Coronavir HKU1 PCR NOT DETECTED Nasal Coronavir NL63 PCR NOT DETECTED Nasal Coronavir OC43 PCR NOT DETECTED Nasal Enterovir/Rhinovir PCR NOT DETECTED Nasal Influenza B PCR NOT DETECTED Nasal Influenza A PCR NOT DETECTED Nasal Parainfluen 1 PCR NOT DETECTED Nasal Parainfluen 2 PCR NOT DETECTED Nasal Parainfluen 3 PCR NOT DETECTED Nasal Parainfluen 4 PCR NOT DETECTED Nasal RSV (PCR) NOT DETECTED Nasal B.pertussis DNA PCR NOT DETECTED Nasal C.pneumoniae (PCR) NOT DETECTED Cesar Human Metapneumo PCR NOT DETECTED Nasal M.pneumoniae (PCR) NOT DETECTED Nasal SARS-CoV-2 (PCR) NOT DETECTED PD MEDICAL DECISION MAKING - ED course ED course: 86yF p/w acute SOA, chest burning sensation after taking her medications tonight. also with worsening SOA X 1 week. will obtain labs, cxr, evaluate further and treat with neb. Patient states her symptoms have resolved s/p neb treatment. Still with some bibasilar wheezing. o2 sat in high 80s on RA. patient requesting to go home. offered another breathing treatment and steroids, also offered rx for breathing treatments, but patient refused, stating she would like to see her pcp for follow up appointment tomorrow. strict return precautions discussed. Departure - Departure Disposition: 01 Home, Self Care Clinical Impression: COPD exacerbation Condition: Good Instructions: COPD Dc Comments: You were seen in the ED for COPD (chronic bronchitis) exacerbation. Please follow up for your PCP appointment tomorrow and return to the ED if you have new or worsening symptoms or other concerns.
[2021-10-27 23:04] LABS: VBG BASE EXCESS 6.2 mmol/L (-2 - +2); VBG HCO3 33.2 mmol/L (23-28); VBG OXYGEN SATURATION 76.3 % (60-80); VBG PCO2 56.8 mmHg (41-51); VBG PH 7.385 (7.31-7.41); VBG PO2 39.8 mmHg (25-47)
[2021-10-27 23:24] LABS: BASOPHILS % (AUTO) 0.5 %; EOSINOPHILS # (AUTO) 0.2 10^3/uL (0.0-0.7); EOSINOPHILS % (AUTO) 1.9 %; HCT - HEMATOCRIT 47.4 % (37.0-47.0); HGB - HEMOGLOBIN 15.4 g/dL (12.0-16.0); LYMPHOCYTES # (AUTO) 1.4 10^3/uL (1.5-3.5); LYMPHOCYTES % (AUTO) 17.3 %; MEAN CORPUSCULAR HEMOGLOBIN 32.2 pg (27.0-31.0); MEAN CORPUSCULAR HGB CONC 32.5 g/dL (32.0-36.0); MEAN PLATELET VOLUME 9.3 fL (7.9-10.8); MONOCYTES # (AUTO) 0.7 10^3/uL (0.0-1.0); MONOCYTES % (AUTO) 8.2 %; NEUTROPHILS # (AUTO) 5.7 10^3/uL (1.5-6.6); NEUTROPHILS % (AUTO) 71.8 %; PLT - PLATELET COUNT 241 10^3/uL (130-450); RED BLOOD COUNT 4.79 10^6/uL (4.20-5.40); RED CELL DISTRIBUTION WIDTH 13.9 % (12.0-15.0); WHITE BLOOD COUNT 7.9 x10^3/uL (4.8-10.8)
[2021-10-27 23:25] LABS: ALBUMIN 3.7 g/dL (3.2-5.5); ALBUMIN/GLOBULIN RATIO 1.3 (1.0-2.2); BILIRUBIN,TOTAL 0.7 mg/dL (0.2-1.0); CALCIUM 9.8 mg/dL (8.5-10.3); CREATININE 1.5 mg/dL (0.4-1.0); POTASSIUM 3.8 mmol/L (3.5-5.0); TOTAL PROTEIN 6.6 g/dL (6.7-8.2)
[2021-10-28 00:06] LABS: B. PARAPERTUSSIS- RESP PCR PAN NOT DETECTED; B. PERTUSSIS- RESP PCR PANEL NOT DETECTED; C. PNEUMONIAE- RESP PCR PANEL NOT DETECTED; CORONAVIRUS 229E-RESP PCR NOT DETECTED; CORONAVIRUS HKU1-RESP PCR NOT DETECTED; CORONAVIRUS NL63-RESP PCR NOT DETECTED; CORONAVIRUS OC43-RESP PCR NOT DETECTED; HUMAN METAPNEUMOVIRUS NOT DETECTED; INFLUENZA A- RESP PCR PANEL NOT DETECTED; INFLUENZA B - RESP PCR PANEL NOT DETECTED; M. PNEUMONIAE- RESP PCR PANEL NOT DETECTED; PARAINFLUENZA VIRUS 1 NOT DETECTED; PARAINFLUENZA VIRUS 2 NOT DETECTED; PARAINFLUENZA VIRUS 3 NOT DETECTED; PARAINFLUENZA VIRUS 4 NOT DETECTED; RHINOVIRUS/ENTEROVIRUS NOT DETECTED; RSV- RESP PCR PANEL NOT DETECTED; SARS-CoV-2 -RESP PCR PANEL NOT DETECTED
--- NOTE | 2021-10-28 00:54 | XRAY Report ---
PROCEDURE: Chest 1 View X-Ray INDICATIONS: Chest Pain TECHNIQUE: One view of the chest was acquired. COMPARISON: Chest radiographs 05/20/2021 FINDINGS: Surgical changes and devices: None. Lungs and pleura: No pleural effusions or pneumothorax. Lungs are clear. Mediastinum: Mediastinal contours appear normal. Heart size is normal. Bones and chest wall: No suspicious bony lesions. Overlying soft tissues appear unremarkable. IMPRESSION: No acute cardiopulmonary abnormality. Reviewed by: Zach Manley MD on 10/28/2021 12:54 AM [facility] Approved by: Zach Manley MD on 10/28/2021 12:54 AM [facility] Station ID: [id number]
[2021-10-28] MEDS ORDERED: ALBUTEROL NEB 2.5 MG/3 ML INH STA (00:59)
[2021-10-28 01:46] VITALS: BP 108/70
== END 2021-10-28 01:35 | disposition home or self-care (01) ==
LOC: ED 22:18
DX: J44.1 Chronic obstructive pulmonary disease with (acute) exacerbation (principal); Z20.822 Contact with and (suspected) exposure to COVID-19; Z66 Do not resuscitate
CPT/HCPCS: 0202U; 36415; 80053; 82803; 83690; 83880; 85025; 93005; 94640; 99283; 99284

== ENCOUNTER 2021-11-03 11:08 | Outpatient (CLI) | payer MEDICARE ==
[2021-11-03 18:32] LABS: ALBUMIN 4.1 g/dL (3.2-5.5); ALBUMIN/GLOBULIN RATIO 1.4 (1.0-2.2); BILIRUBIN,TOTAL 0.6 mg/dL (0.2-1.0); CALCIUM 10.3 mg/dL (8.5-10.3); CREATININE 1.5 mg/dL (0.4-1.0); POTASSIUM 3.6 mmol/L (3.5-5.0)
[2021-11-03 21:54] LABS: ESTIMATED AVERAGE GLUCOSE 131 mg/dL (70-100); HEMOGLOBIN A1c% 6.2 % (4.27-6.07)
== END 2021-11-03 11:09 | disposition home or self-care (01) ==
LOC: LAB.N 11:08
PROVIDERS: ATTEND Physician Assistant Medical
DX: I50.30 Unspecified diastolic (congestive) heart failure (principal); E11.9 Type 2 diabetes mellitus without complications; I48.91 Unspecified atrial fibrillation
CPT/HCPCS: 36415; 80053; 83036; 85610

== ENCOUNTER 2021-11-30 13:19 | Outpatient (CLI) | payer MEDICARE | END 2021-11-30 13:20 | disposition home or self-care (01) | LOC: LAB 13:19 | PROVIDERS: ATTEND Physician Assistant Medical | DX: I48.91 Unspecified atrial fibrillation (principal) | CPT/HCPCS: 36416; 85610 ==

== ENCOUNTER 2021-12-23 08:00 | Outpatient (CLI) | payer MEDICARE | END 2021-12-24 14:11 | disposition home or self-care (01) | LOC: LAB 08:00 | PROVIDERS: ATTEND Physician Assistant Medical | DX: I48.91 Unspecified atrial fibrillation (principal) | CPT/HCPCS: 85610 ==

== ENCOUNTER 2022-01-05 11:00 | Outpatient (CLI) | payer MEDICARE ==
[2022-01-05 11:45] LABS: ALBUMIN 4.1 g/dL (3.2-5.5); ALBUMIN/GLOBULIN RATIO 1.4 (1.0-2.2); BILIRUBIN,TOTAL 0.5 mg/dL (0.2-1.0); CALCIUM 10.4 mg/dL (8.5-10.3); CREATININE 1.3 mg/dL (0.4-1.0); POTASSIUM 4.4 mmol/L (3.5-5.0); TOTAL PROTEIN 7.1 g/dL (6.7-8.2)
[2022-01-06 14:09] LABS: A/G RATIO 1.4 (0.7-1.7); ALBUMIN 3.7 g/dL (2.9-4.4); ALPHA-1-GLOBULIN 0.3 g/dL (0.0-0.4); ALPHA-2-GLOBULIN 0.7 g/dL (0.4-1.0); BETA GLOBULIN 0.8 g/dL (0.7-1.3); GAMMA GLOBULIN 0.9 g/dL (0.4-1.8); GLOBULIN, TOTAL 2.7 g/dL (2.2-3.9); PROTEIN TOTAL 6.4 g/dL (6.0-8.5)
== END 2022-01-05 11:01 | disposition home or self-care (01) ==
LOC: LAB 11:00
PROVIDERS: ATTEND Internal Medicine Nephrology
DX: I50.32 Chronic diastolic (congestive) heart failure (principal); N05.9 Unspecified nephritic syndrome with unspecified morphologic changes; D47.2 Monoclonal gammopathy; E03.9 Hypothyroidism, unspecified
CPT/HCPCS: 36415; 80053; 83880; 84155; 84165; 84443

== ENCOUNTER 2022-01-11 11:20 | Outpatient (CLI) | payer MEDICARE ==
--- NOTE | 2022-01-12 07:37 | CT Report ---
PROCEDURE: Abdomen/Pelvis WO INDICATIONS: LIVER CIRRHOSIS, PELVIC MASS TECHNIQUE: Noncontrast 5 mm thick sections acquired from the diaphragms to the symphysis. 5 mm coronal and sagi ttal reformats were then performed. For radiation dose reduction, the following was used: automated exposure control, adjustment of mA and/or kV according to patient size. COMPARISON: Abdominal ultrasound dated 09/10/2014. FINDINGS: Image quality: Mild patient motion artifact. ABDOMEN: Lung bases: Mild bibasilar atelectasis. Heart size is normal. Atherosclerotic calcifications of the coronary arteries are present. Solid organs: Liver and spleen are normal in size. There is a 1.6 cm hypodense lesion within the rig ht hepatic lobe which is incompletely characterized given lack of intravenous contrast. This likely c orrelates with a previously described right hepatic lobe cyst seen on comparison ultrasound dated 08/22. This previously measured up to 1.4 cm in size. Given differences in imaging technique and jan e interval, this likely represents a stable finding. Gallbladder contains numerous layering punctate densities compatible with multiple small gallstones. Gallstones and sludge was also noted on prior ul trasound. No pericholecystic inflammatory stranding. Pancreas is normal in contours. No adrenal nodu les. Kidneys are normal in size, without hydronephrosis or nephrolithiasis. Bilateral ureters are n ormal in course and caliber. No ureter stones. There is a partially exophytic superior pole right belinda al hypodensity measuring fluid attenuation compatible with previously described right renal cyst. It measures approximately 3.7 cm in diameter. Renal cysts had previously measured up to 6.7 cm in size. No suspicious renal lesions in the absence of contrast. Peritoneum and bowel: Unenhanced bowel loops demonstrate normal wall thickness and caliber. Scatter ed colonic diverticula without evidence for acute diverticulitis. Normal appendix. No free fluid or a ir. Nodes and vessels: No retroperitoneal or mesenteric adenopathy by size criteria. Aorta and inferior vena cava are normal in caliber. Moderate scattered atherosclerotic calcifications of the abdominal aorta. Miscellaneous: No ventral hernias. PELVIS: Genitourinary: Urinary bladder wall thickness is normal. There is a possible exophytic mass with coa rse calcification extending off the posterior, right margin of the uterus measuring approximately 5.1 x 4.4 cm (image 68/series 3). This may represent a partially exophytic uterine fibroid with associat ed degenerative calcification. Miscellaneous: No suspicious pelvic adenopathy. Bilateral small bowel containing inguinal hernias w ithout acute inflammation. No evidence for bowel obstruction proximally. Bones: No suspicious bony lesions. No acute vertebral body compression fractures. Multilevel spond ylosis of the imaged spine. Status post left total hip arthroplasty. Beam hardening artifact from nissa gical hardware limits evaluation of the adjacent structures in the pelvis. IMPRESSION: 1. CT abdomen and pelvis without acute abnormalities. 2. Possible 5.1 x 4.4 cm partially exophytic mass extending from the right posterior lateral margin o f the uterus. This may represent an exophytic uterine fibroid with associated dystrophic calcificatio n. Recommend further characterization with pelvic ultrasound. 3. Cholelithiasis without evidence for acute cholecystitis. 4. Colonic diverticulosis without evidence for acute diverticulitis. 5. Small bowel containing bilateral inguinal hernias without evidence for acute inflammation or bowel obstruction proximally. 6. A 1.6 cm right hepatic lobe hypodensity likely representing previously described hepatic cysts on comparison ultrasound dating 09/10/2014. 7. A partially exophytic superior right renal pole hypodense lesion measuring 3.7 cm in size and amanda uring fluid attenuation. This likely represents previously described renal cysts. This has decreased in size. 8. Atherosclerosis. 9. Status post left total hip arthroplasty. 10. Multilevel spondylosis. Reviewed by: Bradley Day MD on 01/12/2022 7:36 AM PDT Approved by: Bradley Day MD on 01/12/2022 7:36 AM PDT Station ID: [id number]
== END 2022-01-11 11:21 | disposition home or self-care (01) ==
LOC: DI 11:20
PROVIDERS: ATTEND Internal Medicine Nephrology
DX: K74.69 Other cirrhosis of liver (principal); K80.20 Calculus of gallbladder without cholecystitis without obstruction; K57.30 Diverticulosis of large intestine without perforation or abscess without bleeding; K40.20 Bilateral inguinal hernia, without obstruction or gangrene, not specified as recurrent; R16.0 Hepatomegaly, not elsewhere classified; N28.89 Other specified disorders of kidney and ureter; Z96.642 Presence of left artificial hip joint; I70.90 Unspecified atherosclerosis

== ENCOUNTER 2022-01-13 09:58 | Outpatient (CLI) | payer MEDICARE | END 2022-01-13 09:59 | disposition EMS.NT | LOC: EMS 09:58 | DX: Z03.89 Encounter for observation for other suspected diseases and conditions ruled out (principal) ==

== ENCOUNTER 2022-02-14 13:02 | Emergency (ER) | payer MEDICARE ==
--- NOTE | 2022-02-14 13:18 | ED Physician Documentation ---
PD HPI ALTERED MENTAL STATUS - Stated complaint Stated Complaint: AMS - Chief complaint Chief Complaint: Neuro - History obtained from History obtained from: Patient, Family, EMS - History of Present Illness Timing - onset: How many days ago (4) Timing - duration: Days (4) Timing - details: Gradual onset Quality / character: Confused Associated symptoms: Urinary sx. No: Fever, Headache, Stiff neck, Dyspnea, Cough, NVD Contributing factors: No: Anticoagulated, Diabetic, Cancer, COPD, New medication, Recent med change, Recent illness, Recent injury, Intoxicated, Substance abuse, Known psych illness, Known dementia Basline status: Alert and oriented X 3 Recently seen: Not recently seen - Additional information Additional information: 86-year-old female brought into the emergency department by EMS. She reportedly has been slightly confused intermittently over the past 3 to 4 days. No fevers. She does not believe that she has fallen. No headache. No vomiting. She has been urinating more than usual. She also states that she has had increased swelling in her bilateral lower extremities. No difficulty breathing. She is accompanied by her son today. No chest pain. No cough. No congestion. No focal neurological deficits. No numbness or weakness Review of Systems Ten Systems: 10 systems reviewed and negative Constitutional: denies: Fever Cardiac: denies: Chest pain / pressure, Palpitations Respiratory: denies: Cough GI: denies: Vomiting, Diarrhea Skin: denies: Rash Musculoskeletal: denies: Neck pain, Back pain Neurologic: denies: Headache PD PAST MEDICAL HISTORY - Past Medical History Past Medical History: Yes Cardiovascular: Hypertension, Atrial fibrillation Respiratory: COPD Endocrine/Autoimmune: HyPOthyroidism GI: Chronic constipation : Frequency HEENT: None Psych: None Musculoskeletal: Osteoporosis Derm: None - Past Surgical History Past Surgical History: Yes General: Other - Present Medications Home Medications: Ambulatory Orders Medication Instructions Recorded Confirmed Atenolol 25 mg PO QPM 12/21/12 02/14/22 Levothyroxine Sodium [Levothroid] 100 mcg PO QDAC 12/21/12 02/14/22 Tiotropium [Spiriva] 1 puffs INH DAILY 12/21/12 02/14/22 Budesonide/Formoterol Fumarate 2 puffs ORAL BID 04/11/17 02/14/22 [Symbicort 160-4.5 Mcg Inhaler] Spironolactone 25 mg PO BID 09/05/17 02/14/22 Acetaminophen [Tylenol] 1 tab PO Q6HR PRN 05/16/18 02/14/22 Cholecalciferol (Vitamin D3) 2 cap PO DAILY 05/16/18 02/14/22 [Vitamin D3] Magnesium Oxide [Magnesium] 400 mg PO DAILY 05/16/18 05/16/18 Zoledronic Acid/Mannitol&Water 1 applic IM ONCE 05/16/18 02/14/22 [Reclast 5 mg/100 ml Solution] Amitriptyline [Elavil] 25 mg PO QPM 05/20/21 02/14/22 Furosemide [Lasix] 20 mg PO DAILY 05/20/21 02/14/22 Pramipexole [Mirapex] 0.25 mg PO HS 05/20/21 02/14/22 Warfarin [Coumadin] 5 mg PO 1400 05/20/21 02/14/22 Atorvastatin [Lipitor] 10 mg ORAL DAILY PM 02/14/22 02/14/22 Cefpodoxime Proxetil [Vantin] 100 mg PO Q12H #14 tablet 02/14/22 traMADol [Ultram] 50 mg PO BID PRN 02/14/22 02/14/22 - Allergies Allergies/Adverse Reactions: Allergies Allergy/AdvReac Type Severity Reaction Status Date / Time No Known Drug Allergies Allergy Verified 02/14/22 13:11 - Social History Does the pt smoke?: No Smoking Status: Never smoker Does the pt drink ETOH?: Yes Does the pt have substance abuse?: No - Immunizations Immunizations are current?: Yes - POLST Patient has POLST: Yes POLST Status: DNR (Patient states she has not filled out a POLST however wishes to have DO NOT RESUSCITATE order status) PD ED PE NORMAL - Vitals Vital signs reviewed: Yes - General General: Alert and oriented X 3, No acute distress - HEENT HEENT: Atraumatic, PERRL, EOMI, Moist mucous membranes - Neck Neck: Supple, no meningeal sign, No bony TTP - Cardiac Cardiac: RRR, Strong equal pulses - Respiratory Respiratory: No respiratory distress, Clear bilaterally - Abdomen Abdomen: Soft, Non tender, Non distended - Derm Derm: Warm and dry, No rash - Extremities Extremities: No deformity, Normal ROM s pain, Other (1+ bilateral pitting edema) - Neuro Neuro: Alert and oriented X 3 - Psych Psych: Normal mood, Normal affect Results - Vitals Vitals: Vital Signs - 24 hr 02/14/22 02/14/22 02/14/22 13:03 13:35 14:49 Temperature 36.4 C L Heart Rate 51 L 98 Respiratory 16 18 Rate Blood Pressure 109/75 111/86 H O2 Saturation 100 95 Oxygen O2 Source Room air - Labs Labs: Laboratory Tests 02/14/22 02/14/22 02/14/22 13:25 13:25 13:25 WBC 10.0 RBC 4.95 Hgb 15.5 Hct 47.3 H MCV 95.6 MCH 31.3 H MCHC 32.8 RDW 14.6 Plt Count 218 MPV 9.3 Neut # (Auto) 7.6 H Lymph # (Auto) 1.6 Craig # (Auto) 0.7 Eos # (Auto) 0.0 Baso # (Auto) 0.0 Absolute Nucleated RBC 0.00 Nucleated RBC % 0.0 PT INR Sodium 136 Potassium 3.8 Chloride 99 L Carbon Dioxide 26 Anion Gap 11.0 BUN 52 H Creatinine 1.7 H Estimated GFR (MDRD) 28 L Glucose 124 H Calcium 10.5 H Total Bilirubin 1.6 H AST 35 ALT 33 Alkaline Phosphatase 50 B-Natriuretic Peptide Total Protein 6.8 Albumin 4.2 Globulin 2.6 Albumin/Globulin Ratio 1.6 Lipase 22 TSH 2.10 Urine Color Urine Clarity Urine pH Ur Specific [place] Urine Protein Urine Glucose (UA) Urine Ketones Urine Occult Blood Urine Nitrite Urine Bilirubin Urine Urobilinogen Ur Leukocyte Esterase Urine RBC Urine WBC Urine WBC Clumps Ur Squamous Epith Cells Urine Bacteria Ur Microscopic Review Urine Culture Comments Salicylates < 6.0 Urine Opiates Screen Ur Oxycodone Screen Urine Methadone Screen Ur Propoxyphene Screen Acetaminophen 13 Ur Barbiturates Screen Ur Tricyclics Screen Ur Phencyclidine Scrn Ur Amphetamine Screen U Methamphetamines Scrn U Benzodiazepines Scrn Urine Cocaine Screen U Cannabinoids Screen Ethyl Alcohol < 5.0 02/14/22 02/14/22 02/14/22 13:25 13:25 13:44 WBC RBC Hgb Hct MCV MCH MCHC RDW Plt Count MPV Neut # (Auto) Lymph # (Auto) Craig # (Auto) Eos # (Auto) Baso # (Auto) Absolute Nucleated RBC Nucleated RBC % PT 30.2 H INR 2.7 H Sodium Potassium Chloride Carbon Dioxide Anion Gap BUN Creatinine Estimated GFR (MDRD) Glucose Calcium Total Bilirubin AST ALT Alkaline Phosphatase B-Natriuretic Peptide 148 H Total Protein Albumin Globulin Albumin/Globulin Ratio Lipase TSH Urine Color YELLOW Urine Clarity CLOUDY Urine pH 5.5 Ur Specific [place] 1.020 Urine Protein NEGATIVE Urine Glucose (UA) NEGATIVE Urine Ketones 15 H Urine Occult Blood TRACE-INTA Urine Nitrite POSITIVE H Urine Bilirubin NEGATIVE Urine Urobilinogen 0.2 (NORMAL) Ur Leukocyte Esterase LARGE H Urine RBC 0-5 Urine WBC >25 H Urine WBC Clumps PRESENT Ur Squamous Epith Cells RARE Squamous Urine Bacteria Moderate H Ur Microscopic Review INDICATED Urine Culture Comments INDICATED Salicylates Urine Opiates Screen NEGATIVE Ur Oxycodone Screen NEGATIVE Urine Methadone Screen NEGATIVE Ur Propoxyphene Screen NEGATIVE Acetaminophen Ur Barbiturates Screen NEGATIVE Ur Tricyclics Screen POSITIVE H Ur Phencyclidine Scrn NEGATIVE Ur Amphetamine Screen NEGATIVE U Methamphetamines Scrn NEGATIVE U Benzodiazepines Scrn NEGATIVE Urine Cocaine Screen NEGATIVE U Cannabinoids Screen NEGATIVE Ethyl Alcohol - Rads (name of study) Head CT Radiology: Final report received, EMP read contemporaneously, See rad report (No acute abnormality) PD MEDICAL DECISION MAKING - ED course Complexity details: reviewed results, re-evaluated patient, considered differential, d/w patient ED course: 86-year-old female with intermittent confusion over the past 4 days. She does have a UTI and appears to be symptomatic from this, therefore we will treat her. No fevers. No chills. Head CT does not show any acute abnormalities. She was given an extra dose of Lasix here. Swelling in the legs decreased with elevation of the legs here. No evidence of acute pulmonary edema. No hypoxia or respiratory distress. Ambulating well. Patient would like to go home today. She is alert and oriented x3 here. Patient counseled regarding signs and symptoms for which I believe and urgent re-evaluation would be necessary. Patient with good understanding of and agreement to plan and is comfortable going home at this time This document was made in part using voice recognition software. While efforts are made to proofread this document, sound alike and grammatical errors may occur. Departure - Departure Disposition: 01 Home, Self Care Clinical Impression: Peripheral edema UTI (urinary tract infection) Qualifiers: Urinary tract infection type: acute cystitis Hematuria presence: without hematuria Qualified Code(s): N30.00 - Acute cystitis without hematuria Altered mental status Qualifiers: Altered mental status type: unspecified Qualified Code(s): R41.82 - Altered mental status, unspecified Condition: Good Instructions: ED Edema Legs Bilateral, ED UTI Cystitis Female Follow-Up: Aria Warren PA-C [Primary Care Provider] - Within 1 week Prescriptions: Cefpodoxime Proxetil [Vantin] 100 mg PO Q12H #14 tablet Comments: Your antibiotic was sent to [facility] in [place]. Please follow-up with your doctor for further care. You were given an extra dose of Lasix tonight as well. Continue your Lasix at home and elevate your legs whenever possible. Please take all antibiotics until gone. Your head CT does not show any acute abnormalities. Return if you worsen Discharge Date/Time: 02/14/22 16:16
[2022-02-14 13:29] LABS: BASOPHILS % (AUTO) 0.3 %; EOSINOPHILS % (AUTO) 0.4 %; HCT - HEMATOCRIT 47.3 % (37.0-47.0); HGB - HEMOGLOBIN 15.5 g/dL (12.0-16.0); LYMPHOCYTES # (AUTO) 1.6 10^3/uL (1.5-3.5); LYMPHOCYTES % (AUTO) 15.9 %; MEAN CORPUSCULAR HEMOGLOBIN 31.3 pg (27.0-31.0); MEAN CORPUSCULAR HGB CONC 32.8 g/dL (32.0-36.0); MEAN CORPUSCULAR VOLUME 95.6 fL (81.0-99.0); MEAN PLATELET VOLUME 9.3 fL (7.9-10.8); MONOCYTES # (AUTO) 0.7 10^3/uL (0.0-1.0); MONOCYTES % (AUTO) 7.1 %; NEUTROPHILS # (AUTO) 7.6 10^3/uL (1.5-6.6); PLT - PLATELET COUNT 218 10^3/uL (130-450); RED BLOOD COUNT 4.95 10^6/uL (4.20-5.40); RED CELL DISTRIBUTION WIDTH 14.6 % (12.0-15.0)
[2022-02-14 13:35] VITALS: BP 111/86
[2022-02-14 13:44] LABS: ACETAMINOPHEN 13 ug/mL (10-30); ALBUMIN 4.2 g/dL (3.2-5.5); ALBUMIN/GLOBULIN RATIO 1.6 (1.0-2.2); ALKALINE PHOSPHATASE 50 IU/L (42-121); ALT ALANINE AMINOTRANSFERASE 33 IU/L (10-60); AST ASPARTATE AMINOTRANSFERASE 35 IU/L (10-42); BILIRUBIN,TOTAL 1.6 mg/dL (0.2-1.0); BUN - BLOOD UREA NITROGEN 52 mg/dL (6-20); CALCIUM 10.5 mg/dL (8.5-10.3); CARBON DIOXIDE - CO2 26 mmol/L (21-32); CHLORIDE 99 mmol/L (101-111); CREATININE 1.7 mg/dL (0.4-1.0); ETOH - ETHANOL < 5.0 mg/dL; GFR - MDRD 28 (>89); GLUCOSE 124 mg/dL (70-100); LIPASE 22 U/L (22-51); POTASSIUM 3.8 mmol/L (3.5-5.0); SALICYLATE < 6.0 mg/dL; SODIUM 136 mmol/L (135-145); TOTAL PROTEIN 6.8 g/dL (6.7-8.2)
[2022-02-14 14:00] LABS: MUDS CUTOFF CONCENTRATIONS CUTOFF CONC BELOW:
[2022-02-14 14:06] LABS: INR 2.7 (0.8-1.2); PT - PROTHROMBIN TIME 30.2 secs (9.9-12.6)
[2022-02-14 14:13] LABS: GLUCOSE, URINE (UA) NEGATIVE (NEGATIVE); KETONES,URINE (UA) 15 mg/dL (NEGATIVE); LEUKOCYTE ESTERASE, URINE LARGE (NEGATIVE); NITRITE,URINE POSITIVE (NEGATIVE); OCCULT BLOOD,URINE TRACE-INTA (NEGATIVE); PH,URINE 5.5 PH (5.0-7.5); PROTEIN,URINE NEGATIVE (NEGATIVE); UROBILINOGEN,URINE 0.2 (NORMAL) E.U./dL (NORMAL)
[2022-02-14 14:14] LABS: CLARITY,URINE CLOUDY (CLEAR)
--- NOTE | 2022-02-14 14:15 | CT Report ---
PROCEDURE: HEAD WO INDICATIONS: altered mental status TECHNIQUE: Noncontrast 4.5 mm thick angled axial sections acquired from the foramen magnum to the vertex. For r adiation dose reduction, the following was used: automated exposure control, adjustment of mA and/or kV according to patient size. COMPARISON: 02/08/2016, 10/26/2019, 04/15/2021 and 08/22/2021. FINDINGS: Image quality: Excellent. CSF spaces: Basal cisterns are patent. No extra-axial fluid collections. The ventricles are symmet destin in size and shape. Brain: No intracranial bleeds or masses. 0.9 cm coarse calcification noted in the left frontal lobe which is stable compared to the prior exam and may be related to underlying cavernous angioma. There is cerebral volume loss for age, with resultant ventricular and sulcal prominence. There are periven tricular and deep white matter chronic small vessel ischemic changes. There is intracranial internal carotid artery atherosclerosis. Skull and face: Calvarium and visualized facial bones appear intact, without suspicious lesions. Sinuses: Visualized sinuses and mastoids are clear. IMPRESSION: No acute intracranial disease process. Reviewed by: Brenda Valverde MD, PhD on 02/14/2022 2:14 PM PDT Approved by: Brenda Valverde MD, PhD on 02/14/2022 2:14 PM PDT Station ID: [id number]
[2022-02-14 14:17] LABS: BILIRUBIN,URINE NEGATIVE (NEGATIVE); ICTOTEST,URINE NEGATIVE
[2022-02-14 14:22] LABS: BACTERIA,URINE Moderate /HPF (None Seen); RBC,URINE 0-5 /HPF (0-5); SQUAMOUS EPITHELIAL CELL,UR RARE Squamous (<= Few); WBC CLUMPS,URINE PRESENT; WBC,URINE >25 /HPF (0-5)
[2022-02-14 14:23] LABS: AMPHETAMINE SCREEN,URINE NEGATIVE (NEGATIVE); BARBITURATE SCREEN,UR NEGATIVE (NEGATIVE); BENZODIAZEPINES SCREEN, URINE NEGATIVE (NEGATIVE); COCAINE SCREEN URINE NEGATIVE (NEGATIVE); METHADONE SCREEN, URINE NEGATIVE (NEGATIVE); METHAMPHETAMINES SCREEN, URINE NEGATIVE (NEGATIVE); OPIATE SCREEN, URINE NEGATIVE (NEGATIVE); OXYCODONE SCREEN, URINE NEGATIVE (NEGATIVE); PROPOXYPHENE SCREEN, URINE NEGATIVE (NEGATIVE); THC CANNABINOID SCREEN, URINE NEGATIVE (NEGATIVE); TRICYCLIC ANTIDEPRESSANT,URINE POSITIVE (NEGATIVE)
[2022-02-14] MEDS ORDERED: cefTRIAXone 1 GM VIAL IVP STA (14:29)
[2022-02-14] MEDS ORDERED: FUROSEMIDE 40 MG/4 ML VIAL IVP STA (14:29)
[2022-02-14] MEDS ORDERED: SODIUM CHLORIDE 0.9% 500 ML IV STA (14:29)
[2022-02-14] MEDS ORDERED: cefTRIAXone 1 GM VIAL IM STA (14:45)
[2022-02-14] MEDS ORDERED: LIDOCAINE 1% 2 ML VIAL MC ONE (14:45)
[2022-02-14] MEDS ORDERED: FUROSEMIDE 20 MG TABLET PO STA (14:45)
== END 2022-02-14 16:16 | disposition home or self-care (01) ==
LOC: EDUNIT# → ED 13:02
DX: R60.9 Edema, unspecified (principal); N30.00 Acute cystitis without hematuria; R41.82 Altered mental status, unspecified; I48.91 Unspecified atrial fibrillation; I10 Essential (primary) hypertension; Z79.01 Long term (current) use of anticoagulants; Z66 Do not resuscitate
CPT/HCPCS: 36415; 70450; 80053; 80306; 80307; 81001; 83690; 83880; 84443; 85025; 85610; 87086; 87181; 96372; 99283; 99284; A9270; G0480; 80320; 80329; 81003; 81514

== ENCOUNTER → 2022-02-14 | Outpatient (CLI) | payer MEDICARE | END | disposition critical access hospital (66) | LOC: EMS 12:54 | DX: R44.1 Visual hallucinations (principal); R60.0 Localized edema; R35.0 Frequency of micturition | CPT/HCPCS: A0425; A0427 ==

== ENCOUNTER 2022-02-16 11:43 | Outpatient (CLI) | payer MEDICARE | END 2022-02-16 11:44 | disposition home or self-care (01) | LOC: LAB 11:43 | PROVIDERS: ATTEND Physician Assistant Medical | DX: I48.91 Unspecified atrial fibrillation (principal) | CPT/HCPCS: 36416; 85610 ==

== ENCOUNTER 2022-02-17 14:13 | Outpatient (CLI) | payer MEDICARE ==
--- NOTE | 2022-02-17 17:54 | Ultrasound Report ---
PROCEDURE: Pelvic w/Transvaginal INDICATIONS: UTERINE FIBROIDS TECHNIQUE: Real-time scanning was performed of the pelvic organs, with image documentation. Additional endovagi nal scanning was necessary due to incomplete visualization of the adnexal and endometrial structures by transabdominal scanning. COMPARISON: CT abdomen pelvis 01/11/2022. FINDINGS: Uterus: Uterus is anteverted and normal in size for age at 7.5 x 2.8 x 4.8 cm. The myometrium is he terogeneous. The endometrium measures 4 mm in combined thickness. A calcified right anterior uterin e body subserosal fibroid is present measuring 1.5 x 1.3 x 1.3 cm. Ovaries: The right ovary measures 2.1 x 1.0 x 1.1 cm, with a calculated ovarian volume of 1 cc. The left ovary measures 2.4 x 1.0 x 1.6 cm, with a calculated ovarian volume of 2 cc. The ovaries have a normal sonographic appearance. Less than 12 follicles can be seen in each ovary. No adnexal kvng s are seen. Other: No pathologic free abdominal or pelvic fluid. IMPRESSION: 1. A calcified subserosal fibroid is present at the right posterior uterine body measuring up to 1.5 cm. 2. No other fibroids are visualized sonographically. 3. No adnexal mass visualized. Reviewed by: Zach Noyola MD on 02/17/2022 5:53 PM PDT Approved by: Zach Noyoal MD on 02/17/2022 5:53 PM PDT Station ID: [id number]
== END 2022-02-17 14:14 | disposition home or self-care (01) ==
LOC: DI 14:13
PROVIDERS: ATTEND Physician Assistant Medical
DX: D25.2 Subserosal leiomyoma of uterus (principal)

== ENCOUNTER 2022-03-08 11:52 | Outpatient (CLI) | payer MEDICARE | END 2022-03-08 11:53 | disposition home or self-care (01) | LOC: LAB 11:52 | PROVIDERS: ATTEND Physician Assistant Medical | DX: I48.91 Unspecified atrial fibrillation (principal) | CPT/HCPCS: 36416; 85610 ==

== ENCOUNTER 2022-03-21 11:10 | Outpatient (CLI) | payer MEDICARE ==
[2022-03-21 11:30] LABS: CALCIUM 10.4 mg/dL (8.5-10.3); CREATININE 1.5 mg/dL (0.4-1.0); POTASSIUM 4.1 mmol/L (3.5-5.0)
== END 2022-03-21 11:11 | disposition home or self-care (01) ==
LOC: LAB 11:10
PROVIDERS: ATTEND Internal Medicine Nephrology
DX: I50.32 Chronic diastolic (congestive) heart failure (principal); N05.9 Unspecified nephritic syndrome with unspecified morphologic changes
CPT/HCPCS: 36415; 80048; 83880

== ENCOUNTER 2022-04-18 11:38 | Outpatient (CLI) | payer MEDICARE | END 2022-04-18 11:39 | disposition home or self-care (01) | LOC: LAB 11:38 | PROVIDERS: ATTEND Physician Assistant Medical | DX: I48.91 Unspecified atrial fibrillation (principal) | CPT/HCPCS: 36416; 85610 ==

== ENCOUNTER 2022-04-20 13:46 | Outpatient (CLI) | payer MEDICARE ==
[2022-04-20 13:57] LABS: BASOPHILS % (AUTO) 0.4 %; EOSINOPHILS # (AUTO) 0.1 10^3/uL (0.0-0.7); EOSINOPHILS % (AUTO) 1.4 %; HGB - HEMOGLOBIN 15.6 g/dL (12.0-16.0); LYMPHOCYTES # (AUTO) 1.8 10^3/uL (1.5-3.5); LYMPHOCYTES % (AUTO) 18.3 %; MEAN CORPUSCULAR HEMOGLOBIN 32.8 pg (27.0-31.0); MEAN CORPUSCULAR HGB CONC 33.2 g/dL (32.0-36.0); MEAN CORPUSCULAR VOLUME 98.7 fL (81.0-99.0); MEAN PLATELET VOLUME 8.9 fL (7.9-10.8); MONOCYTES # (AUTO) 0.7 10^3/uL (0.0-1.0); MONOCYTES % (AUTO) 6.9 %; NEUTROPHILS # (AUTO) 7.1 10^3/uL (1.5-6.6); NEUTROPHILS % (AUTO) 72.5 %; PLT - PLATELET COUNT 196 10^3/uL (130-450); RED BLOOD COUNT 4.76 10^6/uL (4.20-5.40); RED CELL DISTRIBUTION WIDTH 15.7 % (12.0-15.0); WHITE BLOOD COUNT 9.8 x10^3/uL (4.8-10.8)
[2022-04-20 14:15] LABS: BUN - BLOOD UREA NITROGEN 34 mg/dL (6-20); CALCIUM 9.8 mg/dL (8.5-10.3); CARBON DIOXIDE - CO2 31 mmol/L (21-32); CHLORIDE 96 mmol/L (101-111); CHOL/HDL RATIO 2.2 (<4.4); CHOLESTEROL 152 mg/dL; CREATININE 1.3 mg/dL (0.4-1.0); GFR - MDRD 39 (>89); GLUCOSE 111 mg/dL (70-100); HDL CHOLESTEROL 70 mg/dL; LDL CHOLESTEROL,CALCULATED 68 mg/dL; SODIUM 135 mmol/L (135-145); TRIGLYCERIDES 72 mg/dL; VLDL CHOLESTEROL 14 mg/dL
== END 2022-04-20 13:47 | disposition home or self-care (01) ==
LOC: LAB 13:46
PROVIDERS: ATTEND Internal Medicine Cardiovascular Disease
DX: I11.0 Hypertensive heart disease with heart failure (principal); I50.32 Chronic diastolic (congestive) heart failure; E78.5 Hyperlipidemia, unspecified; N05.9 Unspecified nephritic syndrome with unspecified morphologic changes
CPT/HCPCS: 36415; 80048; 80061; 83721; 83880; 85025

== ENCOUNTER 2022-04-26 10:25 | Outpatient (CLI) | payer MEDICARE ==
[2022-04-26 10:57] LABS: CHOL/HDL RATIO 1.9 (<4.4); CHOLESTEROL 140 mg/dL; HDL CHOLESTEROL 72 mg/dL; LDL CHOLESTEROL,CALCULATED 51 mg/dL; LDL/HDL RATIO 0.7 (<4.4); TRIGLYCERIDES 85 mg/dL; VLDL CHOLESTEROL 17 mg/dL
[2022-04-26 12:09] LABS: ESTIMATED AVERAGE GLUCOSE 134 mg/dL (70-100); HEMOGLOBIN A1c% 6.3 % (4.27-6.07)
== END 2022-04-26 10:26 | disposition home or self-care (01) ==
LOC: LAB 10:25
PROVIDERS: ATTEND Physician Assistant Medical
DX: E11.22 Type 2 diabetes mellitus with diabetic chronic kidney disease (principal)
CPT/HCPCS: 36415; 80061; 83036; 83721

== ENCOUNTER 2022-05-17 08:00 | Outpatient (CLI) | payer MEDICARE | END 2022-05-17 23:59 | disposition home or self-care (01) | LOC: LAB 08:00 | PROVIDERS: ATTEND Physician Assistant Medical | DX: I48.91 Unspecified atrial fibrillation (principal) | CPT/HCPCS: 36416; 85610 ==

== ENCOUNTER 2022-06-15 14:11 | Outpatient (CLI) | payer MEDICARE ==
[2022-06-15 15:03] LABS: BUN - BLOOD UREA NITROGEN 39 mg/dL (6-20); CALCIUM 10.8 mg/dL (8.5-10.3); CARBON DIOXIDE - CO2 34 mmol/L (21-32); CHLORIDE 97 mmol/L (101-111); CHOL/HDL RATIO 1.8 (<4.4); CHOLESTEROL 139 mg/dL; CREATININE 1.5 mg/dL (0.4-1.0); GFR - MDRD 33 (>89); GLUCOSE 108 mg/dL (70-100); HDL CHOLESTEROL 77 mg/dL; LDL CHOLESTEROL,CALCULATED 44 mg/dL; LDL/HDL RATIO 0.6 (<4.4); SODIUM 140 mmol/L (135-145); TRIGLYCERIDES 90 mg/dL; VLDL CHOLESTEROL 18 mg/dL
[2022-06-15 20:08] LABS: ESTIMATED AVERAGE GLUCOSE 131 mg/dL (70-100); HEMOGLOBIN A1c% 6.2 % (4.27-6.07)
== END 2022-06-15 14:12 | disposition home or self-care (01) ==
LOC: LAB 14:11
PROVIDERS: ATTEND Physician Assistant Medical
DX: I48.91 Unspecified atrial fibrillation (principal); E11.22 Type 2 diabetes mellitus with diabetic chronic kidney disease; M81.0 Age-related osteoporosis without current pathological fracture
CPT/HCPCS: 36415; 80048; 80061; 83036; 83721; 85610

== ENCOUNTER 2022-06-29 13:07 | Outpatient (CLI) | payer MEDICARE ==
--- NOTE | 2022-06-29 14:45 | DEXA Report ---
PROCEDURE: Dexa Spine and/or Hip INDICATIONS: POST MENOPAUSAL TECHNIQUE: Dual energy x-ray absorptiometry (DXA) was performed on a [employer] System. Regions measur ed are the AP Spine, femoral neck, and if needed forearm. COMPARISON: None. FINDINGS: Lumbar Spine: Bone Mineral Density 1.03 g/cm/cm,T score -1.2, Right Hip: Bone Mineral Density 0.79 g/cm/cm,T score -1.7, Right Femoral Neck: Bone Mineral Density 0.64 g/cm/cm, T score -2.8, (T score greater or equal to -1.0: NORMAL) (T score from -1.1 to -2.4: OSTEOPENIA) (T score less than or equal to -2.5 to: OSTEOPOROSIS) Impression: Imaging findings consistent with a osteoporosis at the patient's right femoral neck. Patients with diagnosis of osteoporosis or osteopenia should have regular bone mineral density assess ment. For those eligible for Medicare, routine testing is allowed once every 2 years. Testing frequ ency can be increased for patients who have rapidly progressing disease or for those who are receivin g medical therapy to restore bone mass. Reviewed by: Bienvenido Hui MD on 06/29/2022 2:44 PM PST Approved by: Bienvenido Hui MD on 06/29/2022 2:44 PM PST Station ID: [id number]
== END 2022-06-29 13:08 | disposition home or self-care (01) ==
LOC: DI 13:07
PROVIDERS: ATTEND Physician Assistant Medical
DX: Z78.0 Asymptomatic menopausal state (principal); M81.0 Age-related osteoporosis without current pathological fracture

== ENCOUNTER 2022-06-29 13:08 | Outpatient (CLI) | payer MEDICARE ==
--- NOTE | 2022-06-30 16:43 | Mammography Report ---
BILATERAL DIGITAL SCREENING MAMMOGRAM 3D/2D: 06/29/2022 CLINICAL: Routine screening. Comparison is made to exams dated: 01/10/2019 mammogram, 11/28/2017 mammogram, 11/03/2016 mammogram, mammogram, 10/30/2012 mammogram, and [facility] There are scattered areas of fibroglandular density in both breasts (category b / 25%-50% glandular t issue). There are benign calcifications in both breasts. No significant masses, calcifications, or other findings are seen in either breast. There has been no significant interval change. IMPRESSION: BENIGN There is no mammographic evidence of malignancy. A 1 year screening mammogram is recommended. This exam was interpreted at Station ID: [id number]. NOTE: For mammograms, a report in lay terms will be sent to the patient. Approximately 15% of breast malignancies will not be visualized mammographically. In the management of a palpable breast mass, a negative mammogram must not discourage biopsy of a clinically suspicious lesion. Electronically Signed By: Bradley amaro/wilrad:06/29/2022 16:33:26 ACR BI-RADS Category 2: Benign Finding(s) 3342F PARENCHYMAL PATTERN: (A) - The breast(s) demonstrate(s) scattered fibroglandular densities. BI-RADS CATEGORY: (2) - 2 RECOMMENDATION: (ANNUAL) - Recommend routine annual screening mammography. [id number] 1 year screening LATERALITY: (B)
== END 2022-06-29 13:09 | disposition home or self-care (01) ==
LOC: DI 13:08
DX: Z12.31 Encounter for screening mammogram for malignant neoplasm of breast (principal)

== ENCOUNTER 2022-07-13 11:17 | Outpatient (CLI) | payer MEDICARE ==
[2022-07-13 11:26] LABS: BASOPHILS % (AUTO) 0.4 %; EOSINOPHILS # (AUTO) 0.1 10^3/uL (0.0-0.7); EOSINOPHILS % (AUTO) 1.8 %; HCT - HEMATOCRIT 45.9 % (37.0-47.0); HGB - HEMOGLOBIN 14.6 g/dL (12.0-16.0); LYMPHOCYTES # (AUTO) 1.6 10^3/uL (1.5-3.5); LYMPHOCYTES % (AUTO) 23.4 %; MEAN CORPUSCULAR HEMOGLOBIN 31.2 pg (27.0-31.0); MEAN CORPUSCULAR HGB CONC 31.8 g/dL (32.0-36.0); MEAN CORPUSCULAR VOLUME 98.1 fL (81.0-99.0); MEAN PLATELET VOLUME 8.7 fL (7.9-10.8); MONOCYTES # (AUTO) 0.7 10^3/uL (0.0-1.0); MONOCYTES % (AUTO) 9.7 %; NEUTROPHILS # (AUTO) 4.3 10^3/uL (1.5-6.6); NEUTROPHILS % (AUTO) 64.3 %; PLT - PLATELET COUNT 196 10^3/uL (130-450); RED BLOOD COUNT 4.68 10^6/uL (4.20-5.40); RED CELL DISTRIBUTION WIDTH 13.4 % (12.0-15.0); WHITE BLOOD COUNT 6.7 x10^3/uL (4.8-10.8)
== END 2022-07-13 11:18 | disposition home or self-care (01) ==
LOC: LAB 11:17
PROVIDERS: ATTEND Physician Assistant
DX: K62.5 Hemorrhage of anus and rectum (principal); K59.00 Constipation, unspecified
CPT/HCPCS: 36415; 85025

== ENCOUNTER 2022-07-20 12:38 | Outpatient (CLI) | payer MEDICARE | END 2022-07-20 12:39 | disposition home or self-care (01) | LOC: LAB 12:38 | PROVIDERS: ATTEND Physician Assistant Medical | DX: I48.91 Unspecified atrial fibrillation (principal) | CPT/HCPCS: 36416; 85610 ==

== ENCOUNTER 2022-08-03 12:58 | Outpatient (CLI) | payer MEDICARE ==
[2022-08-03 13:29] LABS: BASOPHILS # (AUTO) 0.1 10^3/uL (0.0-0.1); BASOPHILS % (AUTO) 0.9 %; EOSINOPHILS # (AUTO) 0.2 10^3/uL (0.0-0.7); EOSINOPHILS % (AUTO) 2.8 %; HCT - HEMATOCRIT 45.8 % (37.0-47.0); HGB - HEMOGLOBIN 14.7 g/dL (12.0-16.0); LYMPHOCYTES # (AUTO) 1.4 10^3/uL (1.5-3.5); LYMPHOCYTES % (AUTO) 24.2 %; MEAN CORPUSCULAR HEMOGLOBIN 31.6 pg (27.0-31.0); MEAN CORPUSCULAR HGB CONC 32.1 g/dL (32.0-36.0); MEAN CORPUSCULAR VOLUME 98.5 fL (81.0-99.0); MEAN PLATELET VOLUME 8.7 fL (7.9-10.8); MONOCYTES # (AUTO) 0.5 10^3/uL (0.0-1.0); MONOCYTES % (AUTO) 8.1 %; NEUTROPHILS # (AUTO) 3.7 10^3/uL (1.5-6.6); NEUTROPHILS % (AUTO) 63.8 %; PLT - PLATELET COUNT 220 10^3/uL (130-450); RED BLOOD COUNT 4.65 10^6/uL (4.20-5.40); RED CELL DISTRIBUTION WIDTH 13.4 % (12.0-15.0); WHITE BLOOD COUNT 5.7 x10^3/uL (4.8-10.8)
[2022-08-03 13:37] LABS: CALCIUM 10.3 mg/dL (8.5-10.3); CREATININE 1.4 mg/dL (0.4-1.0); POTASSIUM 4.1 mmol/L (3.5-5.0)
== END 2022-08-03 12:59 | disposition home or self-care (01) ==
LOC: LAB 12:58
PROVIDERS: ATTEND Internal Medicine Cardiovascular Disease
DX: I50.32 Chronic diastolic (congestive) heart failure (principal)
CPT/HCPCS: 36415; 80048; 83880; 85025

== ENCOUNTER 2022-08-17 12:50 | Outpatient (CLI) | payer MEDICARE | END 2022-08-17 12:51 | disposition home or self-care (01) | LOC: LAB 12:50 | PROVIDERS: ATTEND Physician Assistant Medical | DX: I48.91 Unspecified atrial fibrillation (principal) | CPT/HCPCS: 36416; 85610 ==

== ENCOUNTER 2022-08-28 02:13 | Outpatient (CLI) | payer MEDICARE | END 2022-08-28 02:14 | disposition left against medical advice (07) | LOC: EMS 02:13 | DX: S51.011A Laceration without foreign body of right elbow, initial encounter (principal); S09.90XA Unspecified injury of head, initial encounter; W01.0XXA Fall on same level from slipping, tripping and stumbling without subsequent striking against object, initial encounter; Y92.002 Bathroom of unspecified non-institutional (private) residence as the place of occurrence of the external cause; Z79.01 Long term (current) use of anticoagulants ==

== ENCOUNTER 2022-08-28 11:59 | Emergency (ER) | payer MEDICARE ==
--- NOTE | 2022-08-28 12:29 | ED Physician Documentation ---
History of Present Illness - Stated complaint Stated Complaint: FALL - Chief complaint Chief Complaint: Trauma Hd/Nk - Additonal information Additional information: History provided by patient. Reliable historian. 87-year-old female was driven into the hospital by her son for evaluation of right flank pain/hematoma after a syncopal fall this morning. Patient has a history of COPD and atrial fibrillation for which she is anticoagulated on Coumadin. She typically walks with a walker and has extensive chronic bilateral lower extremity edema. She reports that she was micturating this morning when she stood up and simply fainted. States she has fainted in the past. She does not think she lost consciousness but struck her head on the hard ground. EMS was summoned to the house and they advised transport to the hospital but the patient preferred to be driven in. She was able to get up with some assistance and was ambulatory with a walker after the fall. She is denying any headache or chest pain. Her usual shortness of breath is present but not different. She does complain of a large bruise on her posterior right flank. She however presents alert, well-appearing and with no focal deficits Review of Systems Constitutional: denies: Fever, Chills Nose: reports: Reviewed and negative Throat: denies: Dental pain / toothache, Oral lesions / sores, Sore throat, Swollen tonsils, Swallowed foreign body, Reviewed and negative, Other Cardiac: reports: Pedal edema (Chronic). denies: Chest pain / pressure, Pa lpitations Respiratory: reports: Dyspnea (chronic). denies: Cough, Hemoptysis, Wheezing GI: reports: Reviewed and negative : reports: Reviewed and negative Skin: reports: Reviewed and negative PD PAST MEDICAL HISTORY - Past Medical History Cardiovascular: Hypertension, Atrial fibrillation Respiratory: COPD Endocrine/Autoimmune: HyPOthyroidism GI: Chronic constipation : Frequency HEENT: None Psych: None Musculoskeletal: Osteoporosis Derm: None - Past Surgical History Past Surgical History: Yes General: Other - Present Medications Home Medications: Ambulatory Orders Medication Instructions Recorded Confirmed Atenolol 25 mg PO QPM 12/21/12 02/14/22 Levothyroxine Sodium [Levothroid] 100 mcg PO QDAC 12/21/12 02/14/22 Tiotropium [Spiriva] 1 puffs INH DAILY 12/21/12 02/14/22 Budesonide/Formoterol Fumarate 2 puffs ORAL BID 04/11/17 02/14/22 [Symbicort 160-4.5 Mcg Inhaler] Spironolactone 25 mg PO BID 09/05/17 02/14/22 Acetaminophen [Tylenol] 1 tab PO Q6HR PRN 05/16/18 02/14/22 Cholecalciferol (Vitamin D3) 2 cap PO DAILY 05/16/18 02/14/22 [Vitamin D3] Magnesium Oxide [Magnesium] 400 mg PO DAILY 05/16/18 05/16/18 Zoledronic Acid/Mannitol&Water 1 applic IM ONCE 05/16/18 02/14/22 [Reclast 5 mg/100 ml Solution] Amitriptyline [Elavil] 25 mg PO QPM 05/20/21 02/14/22 Furosemide [Lasix] 20 mg PO DAILY 05/20/21 02/14/22 Pramipexole [Mirapex] 0.25 mg PO HS 05/20/21 02/14/22 Warfarin [Coumadin] 5 mg PO 1400 05/20/21 02/14/22 Atorvastatin [Lipitor] 10 mg ORAL DAILY PM 02/14/22 02/14/22 Cefpodoxime Proxetil [Vantin] 100 mg PO Q12H #14 tablet 02/14/22 traMADol [Ultram] 50 mg PO BID PRN 02/14/22 02/14/22 Valacyclovir HCl [Valtrex] 1,000 mg PO TID #30 tablet 04/05/22 predniSONE [Deltasone] 20 mg PO [id number] #21 tab 04/05/22 Azithromycin [Zithromax] 0 mg PO DAILY #6 tablet 08/28/22 predniSONE [Deltasone] 40 mg PO DAILY 5 Days #10 tablet 08/28/22 - Allergies Allergies/Adverse Reactions: Allergies Allergy/AdvReac Type Severity Reaction Status Date / Time No Known Drug Allergies Allergy Verified 04/05/22 14:01 - Social History Does the pt smoke?: No Smoking Status: Never smoker Does the pt drink ETOH?: Yes Does the pt have substance abuse?: No - Immunizations Immunizations are current?: Yes - POLST Patient has POLST: Yes POLST Status: DNR (Patient states she has not filled out a POLST however wishes to have DO NOT RESUSCITATE order status) PD ED PE EXPANDED - General General: Alert, No acute distress, Other (Morbidly obese) - Cardiac Cardiac: Irregularly irregular, Murmur Present, Radial strong equal, Pedal strong equal, Cap refill < 2 sec, Other (Extensive bilateral lower extremity pitting edema 2+ feet to the knees) - Respiratory Respiratory: Other (Faint scattered expiratory wheeze. Room air saturations 94%. Nonlabored). No: Distress, Labored - Abdomen Abdomen: Normal Bowel sounds, Other (Large right posterior flank bruise that extends from the iliac crest 4 cm up the posterior flank). No: Tender to palpation - Derm Derm: Normal color, Warm and dry, Bruising (Multiple bruises on the arms and lower extremities consistent with a history of anticoagulation), Other (Large skin tear on the right forearm AC region and left hand) - Extremities Extremities: Normal. No: Deformity, Tenderness - Neuro Neuro: Alert and Oriented X 3, CNII-XII intact - GCS Eye Opening: Spontaneous Motor: Obeys Commands Verbal: Oriented Total: 15 Results - Vitals Vitals: Vital Signs - 24 hr 08/28/22 08/28/22 08/28/22 12:09 12:40 13:36 Temperature 37.0 C Heart Rate 93 83 97 Heart Rate [ 97 Sitting] Heart Rate [ 87 Standing] Heart Rate [ 86 Supine] Respiratory 18 21 20 Rate Blood Pressure 148/103 H 120/90 H 103/69 Blood Pressure 103/69 [Sitting] Blood Pressure 103/61 [Standing] Blood Pressure 108/70 [Supine] O2 Saturation 91 L 92 94 08/28/22 08/28/22 14:00 14:12 Temperature Heart Rate 89 84 Heart Rate [ Sitting] Heart Rate [ Standing] Heart Rate [ Supine] Respiratory 18 18 Rate Blood Pressure 110/74 Blood Pressure [Sitting] Blood Pressure [Standing] Blood Pressure [Supine] O2 Saturation 98 Oxygen O2 Source Room air - EKG (time done) 1313 Rate: Rate (enter#) (87) Rhythm: Atrial fibrillation Palmer: LAD Intervals: Prolonged QT QRS: Normal Ischemia: Non specific changes Compare to prior EKG: Unchanged from prior EKG - Labs Labs: Laboratory Tests 08/28/22 08/28/22 08/28/22 12:30 12:30 12:30 WBC 7.0 RBC 4.44 Hgb 13.8 Hct 43.5 MCV 98.0 MCH 31.1 H MCHC 31.7 L RDW 13.9 Plt Count 178 MPV 9.2 Neut # (Auto) 5.0 Lymph # (Auto) 1.1 L [place] # (Auto) 0.8 Eos # (Auto) 0.1 Baso # (Auto) 0.1 Absolute Nucleated RBC 0.00 Nucleated RBC % 0.0 PT 28.1 H INR 2.7 H Sodium 131 L Potassium 3.5 Chloride 92 L Carbon Dioxide 30 Anion Gap 9.0 BUN 23 H Creatinine 1.2 H Estimated GFR (MDRD) 42 L Glucose 113 H Calcium 9.3 Total Bilirubin 1.1 H AST 24 ALT 25 Alkaline Phosphatase 48 B-Natriuretic Peptide Total Protein 6.7 Albumin 4.0 Globulin 2.7 Albumin/Globulin Ratio 1.5 Lipase 21 L 08/28/22 12:30 WBC RBC Hgb Hct MCV MCH MCHC RDW Plt Count MPV Neut # (Auto) Lymph # (Auto) [place] # (Auto) Eos # (Auto) Baso # (Auto) Absolute Nucleated RBC Nucleated RBC % PT INR Sodium Potassium Chloride Carbon Dioxide Anion Gap BUN Creatinine Estimated GFR (MDRD) Glucose Calcium Total Bilirubin AST ALT Alkaline Phosphatase B-Natriuretic Peptide 113 H Total Protein Albumin Globulin Albumin/Globulin Ratio Lipase - Rads (name of study) cervical CT Radiology: Final report received (Stable multilevel degenerative disc disease and arthropathy without fracture or traumatic malalignment) CT head Radiology: Final report received (Atrophy and chronic ischemic change without intracranial hemorrhage or mass-effect. Stable left frontal white matter focal calcification) Ct abd Radiology: Final report received (Large subcutaneous soft tissue hematoma without noncontrasted CT evidence of intra-abdominal injury. Cholelithiasis and diverticulosis without evidence of inflammation) CXR Radiology: Final report received (No acute cardiopulmonary findings. No pneumothorax.) Procedures - Laceration (location) right forearm skin tear Wound type: Into subcut fat Wound preparation: Irrigated copiously NS Skin layer closure: Steri strips, Other Other: Patient tolerated well, Tetanus UTD (Large skin tear involving the subcutaneous region of the forearm was approximated using Steri-Strips. There is a large area of skin avulsion where dermis and epidermis is missing that will have to heal by secondary intention.) PD Medical Decision Making - ED course Complexity details: reviewed results, re-evaluated patient, considered differ ential, d/w patient, d/w family ED course: 87-year-old female presents emergency department after a syncopal episode. She is the historian and is reliable. She had been sitting on the toilet micturating when she stood up and suddenly fainted. She had no preceding prodromal symptoms such as tunnel vision, chest pain or shortness of air. She reports fainting multiple times in the past. She is anticoagulated on Coumadin secondary to history of atrial fibrillation. She also has a history of COPD. Given the anticoagulation a CT of the head was completed that showed no acute traumatic injuries within the brain. A CT of the neck showed no cervical spine fractures. She did present with a large hematoma and bruise on her right posterior flank. A CT of the abdomen showed no findings suggestive of traumatic intra-abdominal injury such as liver or renal hematomas though there is a hematoma on her flank. We did make incidental findings of cholelithiasis and diverticulosis which the patient was notified of. She did have a large skin tear on her right forearm near the elbow as well as on her left hand. These were closed as best as possible using Steri-Strips. We did obtain an EKG which was nonischemic. Her orthostatic blood pressures were evaluated and she was not found to be orthostatic however I do suspect that orthostasis contributed to the fall as she had been sitting for a longer period of time. CBC that was completed showed no worrisome findings such as significant leukocytosis or worrisome anemia. We did make note of a very modest hyponatremia with a sodium of 131. She does have some chronic kidney disease with a GFR of 42 however her kidney disease is not markedly different from baseline. After period of time here in the emergency department she was easily able to pass a road test using her walker. However shortly thereafter she began to have some wheezing. She was administered a DuoNeb with full resolution of the wheeze but given the age and history of extensive COPD she was dispensed a 5-day course of steroids as well as initiation of azithromycin. At no point has the patient been labored or hypoxic. Room air saturations have been 92% or better. Patient is discharged home in stable condition. Advised to follow closely with her PCP. Emergent worrisome return precautions were otherwise discussed. Departure - Departure Disposition: 01 Home, Self Care Clinical Impression: Syncope and collapse, COPD with exacerbation, Anticoagulated on Coumadin, Skin tear, Hyponatremia Hematoma of right flank Qualifiers: Encounter type: initial encounter Qualified Code(s): S30.1XXA - Contusion of abdominal wall, initial encounter CKD (chronic kidney disease) stage 3, GFR 30-59 ml/min Qualifiers: Chronic kidney disease stage 3 subtype: stage 3b (GFR 30-44) Qualified Code(s): N18.32 - Chronic kidney disease, stage 3b Instructions: ED COPD Flare Follow-Up: Aria Warren PA-C [Primary Care Provider] - Prescriptions: predniSONE [Deltasone] 40 mg PO DAILY 5 Days #10 tablet Azithromycin [Zithromax] 0 mg PO DAILY #6 tablet Comments: Patria you were seen this morning after fainting and falling at home after using the toilet. Because of your COPD and the amount of edema in your lower legs you must be getting up from sitting positions cautiously. We did do a CT of your head that showed no bruising or bleeding within the brain. The CT of your neck shows no fractures. We did a CT of your abdomen. There is nothing to suggest bleeding or bruising within the organs. Incidental note is made of gallstones that are not causing inflammation as well as diverticulosis in the large intestine, also without inflammation. We did obtain a CBC that showed no worrisome findings. Your electrolytes show a very mild decrease in your sodium of 131 today. The normal is 135. This is not clinically significant given your history. While here in the emergency department you did develop a COPD exacerbation as evidenced by your wheezing. We gave you a breathing treatment you are feeling much better. But in order to treat the COPD exacerbation we are sending you with a prescription for an antibiotic as well as 5 days of steroids. This is going to go to the [facility] in [place]. The skin tears on your hand and right forearm were addressed as best as possible with Steri-Strips. The forearm wounds will take a number of weeks to heal. You can gently wash with warm soap and water pat dry and then apply nonstick bandage. If at any point over the next few days you find that you are having difficulty breathing, any chest pain, further fainting episodes and please return immediately to the ER.
[2022-08-28 12:34] LABS: BASOPHILS # (AUTO) 0.1 10^3/uL (0.0-0.1); BASOPHILS % (AUTO) 0.7 %; EOSINOPHILS # (AUTO) 0.1 10^3/uL (0.0-0.7); HCT - HEMATOCRIT 43.5 % (37.0-47.0); HGB - HEMOGLOBIN 13.8 g/dL (12.0-16.0); LYMPHOCYTES # (AUTO) 1.1 10^3/uL (1.5-3.5); LYMPHOCYTES % (AUTO) 15.4 %; MEAN CORPUSCULAR HEMOGLOBIN 31.1 pg (27.0-31.0); MEAN CORPUSCULAR HGB CONC 31.7 g/dL (32.0-36.0); MEAN PLATELET VOLUME 9.2 fL (7.9-10.8); MONOCYTES # (AUTO) 0.8 10^3/uL (0.0-1.0); NEUTROPHILS % (AUTO) 71.6 %; PLT - PLATELET COUNT 178 10^3/uL (130-450); RED BLOOD COUNT 4.44 10^6/uL (4.20-5.40); RED CELL DISTRIBUTION WIDTH 13.9 % (12.0-15.0)
[2022-08-28 12:49] LABS: ALBUMIN/GLOBULIN RATIO 1.5 (1.0-2.2); BILIRUBIN,TOTAL 1.1 mg/dL (0.2-1.0); CALCIUM 9.3 mg/dL (8.5-10.3); CREATININE 1.2 mg/dL (0.4-1.0); POTASSIUM 3.5 mmol/L (3.5-5.0); TOTAL PROTEIN 6.7 g/dL (6.7-8.2)
[2022-08-28 12:53] LABS: INR 2.7 (0.8-1.2); PT - PROTHROMBIN TIME 28.1 secs (9.9-12.6)
[2022-08-28] MEDS ORDERED: BACITRACIN ZINC OINT 1 PACKET TOP STA (12:57)
--- NOTE | 2022-08-28 13:09 | CT Report ---
PROCEDURE: CT cervical spine without contrast INDICATIONS: fall ground level TECHNIQUE: Noncontrast 3 mm thick sections acquired from the skull base to the T4 level. Sagittal and coronal r eformats were then constructed. For radiation dose reduction, the following was used: automated exp osure control, adjustment of mA and/or kV according to patient size. COMPARISON: 04/15/2021 FINDINGS: Image quality: Excellent. Bones: No fractures or dislocations. Visualized superior ribs are intact. There is straightening o f normal cervical lordosis. Disc space narrowing and hypertrophic facet joints noted in the lower lum bar spine. Soft tissues: Prevertebral soft tissues are normal in thickness. No paravertebral hematomas. No ap ical pneumothoraces. IMPRESSION: Stable multilevel degenerative disc disease and arthropathy without fracture or traumatic malalignmen t Reviewed by: Daniel Krishna MD on 08/28/2022 12:08 PM [place] Approved by: Daniel Krishna MD on 08/28/2022 12:08 PM [place] Station ID: [id number]
--- NOTE | 2022-08-28 13:11 | CT Report ---
PROCEDURE: CT brain without contrast INDICATIONS: Trauma, pain TECHNIQUE: Noncontrast 4.5 mm thick angled axial sections acquired from the foramen magnum to the vertex. For r adiation dose reduction, the following was used: automated exposure control, adjustment of mA and/or kV according to patient size. COMPARISON: 03/16/2022 FINDINGS: Image quality: Excellent. CSF spaces: Basal cisterns are patent. No extra-axial fluid collections. Ventricles are normal in size and shape. Brain: No midline shift. No intracranial masses or hemorrhage. Sidhu-white matter interface is norm al. Atrophy and chronic ischemic change present. Left frontal white matter calcification remains sta ble from the prior Skull and face: Calvarium and visualized facial bones are intact, without suspicious lesions. Sinuses: Visualized sinuses and mastoids are clear. IMPRESSION: Atrophy and chronic ischemic change without intracranial hemorrhage or mass effect. Stable left frontal white matter focal calcification Reviewed by: Daniel Krishna MD on 08/28/2022 12:10 PM [place] Approved by: Daniel Krishna MD on 08/28/2022 12:10 PM AKST Station ID: [id number]
--- NOTE | 2022-08-28 13:37 | CT Report ---
PROCEDURE: CT abdomen pelvis without contrast INDICATIONS: 87-year-old female with right posterior flank pain status post fall. History of oral an ticoagulation TECHNIQUE: Noncontrast 5 mm thick sections acquired from the diaphragms to the symphysis. 5 mm coronal and sagi ttal reformats were then performed. For radiation dose reduction, the following was used: automated exposure control, adjustment of mA and/or kV according to patient size. COMPARISON: None. FINDINGS: Image quality: Lack of intravenous contrast limits assessment of abdominal solid and vascular structu res particularly trauma and neoplasm Lower thorax: The lung bases are clear. Heart size normal. No hiatal hernia. 1.8 cm hypodensity in the right hepatic lobe, probable cyst Liver: Normal in size and attenuation. No contour deformity present. Biliary system: Cholelithiasis without CT evidence of acute cholecystitis Pancreas: Unremarkable without mass or inflammation evident. Spleen: Normal in size and density. Adrenals: Normal morphology and density. Reproductive system: Unremarkable as visualized. Urinary system: Normal renal size and attenuation. No renal calculi, hydronephrosis, or solid mass p resent. Urinary bladder unremarkable. Gastrointestinal system: The bowel appears unremarkable with no evidence of bowel obstruction or inf lammation. The stomach appears unremarkable. Multiple diverticula arise from the sigmoid colon withou t evidence of diverticulitis. Appendix: No findings to suggest acute appendicitis. Peritoneal spaces: No mesenteric or retroperitoneal adenopathy. No free air. No free fluid. Vasculature: The IVC, aorta and iliac vasculature are unremarkable. Musculoskeletal: Right soft tissue hematoma in the subcutaneous fat over the right flank measures 10 .7 x 4.3 cm. No evidence of fracture. Normal bone mineralization. No acute fractures. Abdominal wal l intact without evidence of ventral or inguinal hernias. Right total hip prosthesis limits assessmen t in the pelvis. Degenerative disc disease and arthropathy in the lumbar spine IMPRESSION: 1. Large subcutaneous soft tissue hematoma without noncontrasted CT evidence of intra-abdominal injur y. 2. Cholelithiasis and diverticulosis without evidence of inflammation Reviewed by: Daniel Krishna MD on 08/28/2022 12:36 PM AKST Approved by: Daniel Krishna MD on 08/28/2022 12:36 PM AKST Station ID: [id number]
--- NOTE | 2022-08-28 13:47 | XRAY Report ---
PROCEDURE: Chest 1 View X-Ray INDICATIONS: chest pain TECHNIQUE: One view of the chest was acquired. COMPARISON: None. FINDINGS: Surgical changes and devices: None. Lungs and pleura: No pleural effusions or pneumothorax. Lungs are clear. Mediastinum: Mediastinal contours appear normal. Heart size is normal. Bones and chest wall: No suspicious bony lesions. Overlying soft tissues appear unremarkable. IMPRESSION: No acute cardiopulmonary findings. No pneumothorax. Reviewed by: Daniel Krishna MD on 08/28/2022 12:45 PM [facility] Approved by: Daniel Krishna MD on 08/28/2022 12:45 PM [facility] Station ID: [id number]
[2022-08-28] MEDS ORDERED: IPRATROPIUM/ALBUTEROL 3 ML NEB INH STA (13:49)
[2022-08-28] MEDS ORDERED: predniSONE 20 MG TABLET PO STA (13:49)
[2022-08-28] MEDS ORDERED: AZITHROMYCIN 250 MG TABLET PO STA (14:42)
[2022-08-28 14:44] VITALS: BP 104/71
== END 2022-08-28 14:56 | disposition home or self-care (01) ==
LOC: ED 11:59
DX: S09.90XA Unspecified injury of head, initial encounter (principal); S30.1XXA Contusion of abdominal wall, initial encounter; S51.811A Laceration without foreign body of right forearm, initial encounter; J44.1 Chronic obstructive pulmonary disease with (acute) exacerbation; W18.30XA Fall on same level, unspecified, initial encounter; Y92.002 Bathroom of unspecified non-institutional (private) residence as the place of occurrence of the external cause; R55 Syncope and collapse; I48.91 Unspecified atrial fibrillation; Z79.01 Long term (current) use of anticoagulants; E87.1 Hypo-osmolality and hyponatremia; I12.9 Hypertensive chronic kidney disease with stage 1 through stage 4 chronic kidney disease, or unspecified chronic kidney disease; N18.32 Chronic kidney disease, stage 3b
CPT/HCPCS: 36415; 70450; 71045; 72125; 74176; 80053; 83690; 83880; 85025; 85610; 93005; 94640; 99284; A9270; J7512

== ENCOUNTER 2022-09-05 10:43 | Outpatient (CLI) | payer MEDICARE ==
[2022-09-05] MEDS ORDERED: DIATRIZOATE MEGLU/DIATRIZO SOD 30 ML BOTTLE PO ONE ×2 (11:04→14:00)
[2022-09-05] MEDS ORDERED: iohexoL-300 100 ML VIAL ONE (11:04)
[2022-09-05] MEDS ORDERED: iohexoL-300 100 ML VIAL IVP ONE (14:00)
--- NOTE | 2022-09-05 14:47 | CT Report ---
PROCEDURE: ABDOMEN/PELVIS W INDICATIONS: ABD PAIN CONTRAST: 100ml Omnipaque 300 TECHNIQUE: After the administration of IV and oral contrast, 5 mm thick sections acquired from the diaphragms to the symphysis. 5 mm thick coronal and sagittal reformats were acquired. For radiation dose reducti on, the following was used: automated exposure control, adjustment of mA and/or kV according to glynn ent size. COMPARISON: 08/28/2022 FINDINGS: Image quality: Good Lower chest: Scattered scarring and atelectasis. Small airspace opacities and nodules at the bases, p ossibly infectious or inflammatory. Attention on follow-up. No hiatal hernia. Biatrial enlargement an d borderline cardiomegaly. Solid organs: Hepatic cyst. Liver is otherwise unremarkable. Cholelithiasis. No pathologic dilation o f the biliary tree or pancreatic duct. No splenomegaly. Adenomatous thickening and nodule in the left adrenal again seen. Bosniak 1 and 2 renal lesions are present, for which no dedicated follow-up is n ecessary per 2019 proposed guidelines. No hydronephrosis. Vessels and lymph nodes: No abdominal aortic aneurysm. The main portal vein is patent. A few prominen t upper abdominal lymph nodes are stable compared to prior. None are definitely enlarged by size crit eria. Bowel and peritoneum: No hemoperitoneum. No small bowel obstruction. Colonic diverticula. Please jay elate with any history of age-appropriate colonoscopy results. Body wall: Bilateral inguinal hernias containing bowel, without obstruction, as before. A hematoma is again seen in the supragluteal region measuring 6 x 12.6 cm (axial image 34), previousl y 4.7 x 12.5 cm. Pelvis: Obscured by metallic artifact. Reproductive organs are not well evaluated, unremarkable. Blad janina is also unremarkable. Bones: Left hip arthroplasty no displaced fracture is identified. Scattered degenerative changes. IMPRESSION: A right supragluteal hematoma is slightly increased in size compared to 08/28/2022. Please consider fol low-up imaging to exclude any underlying mass. Other stable and favored nonacute findings as described above. The pelvis is obscured by metallic art ifact. Reviewed by: Julio Cesar Valles MD on 09/05/2022 2:45 PM PST Approved by: Julio Cesar Valles MD on 09/05/2022 2:45 PM PST Station ID: [id number]
== END 2022-09-05 10:44 | disposition home or self-care (01) ==
LOC: DI 10:43
PROVIDERS: ATTEND Physician Assistant
DX: S30.1XXA Contusion of abdominal wall, initial encounter (principal); R10.9 Unspecified abdominal pain; K59.00 Constipation, unspecified; I48.91 Unspecified atrial fibrillation
CPT/HCPCS: 36416; 74177; 85610; Q9963; Q9967

== ENCOUNTER 2022-09-12 13:19 | Outpatient (CLI) | payer MEDICARE | END 2022-09-12 13:20 | disposition home or self-care (01) | LOC: LAB 13:19 | PROVIDERS: ATTEND Physician Assistant Medical | DX: I48.91 Unspecified atrial fibrillation (principal) | CPT/HCPCS: 36416; 85610 ==

== ENCOUNTER 2022-10-13 09:53 | Outpatient (CLI) | payer MEDICARE | END 2022-10-13 09:54 | disposition home or self-care (01) | LOC: LAB 09:53 | PROVIDERS: ATTEND Physician Assistant Medical | DX: I48.91 Unspecified atrial fibrillation (principal) | CPT/HCPCS: 36416; 85610 ==

== ENCOUNTER 2022-11-21 11:48 | Outpatient (CLI) | payer MEDICARE | END 2022-11-21 11:49 | disposition home or self-care (01) | LOC: LAB 11:48 | PROVIDERS: ATTEND Physician Assistant Medical | DX: I48.91 Unspecified atrial fibrillation (principal) | CPT/HCPCS: 36416; 85610 ==

== ENCOUNTER 2022-11-23 08:00 | Outpatient (CLI) | payer MEDICARE | END 2022-11-23 23:59 | disposition home or self-care (01) | LOC: LAB.WCP 08:00 | PROVIDERS: ATTEND Physician Assistant Medical | DX: R21 Rash and other nonspecific skin eruption (principal) | CPT/HCPCS: 81599; 87070; 87205; 87255 ==

== ENCOUNTER 2022-11-23 08:28 | Outpatient (CLI) | payer MEDICARE ==
[2022-11-23 09:21] LABS: THYROID STIMULATING HORMONE 2.37 uIU/mL (0.34-5.60)
[2022-11-23 09:28] LABS: ALBUMIN 3.8 g/dL (3.2-5.5); ALBUMIN/GLOBULIN RATIO 1.5 (1.0-2.2); ALKALINE PHOSPHATASE 42 IU/L (42-121); ALT ALANINE AMINOTRANSFERASE 27 IU/L (10-60); AST ASPARTATE AMINOTRANSFERASE 22 IU/L (10-42); BILIRUBIN,TOTAL 0.7 mg/dL (0.2-1.0); BUN - BLOOD UREA NITROGEN 41 mg/dL (6-20); CALCIUM 10.3 mg/dL (8.5-10.3); CARBON DIOXIDE - CO2 29 mmol/L (21-32); CHLORIDE 100 mmol/L (101-111); CHOL/HDL RATIO 2.1 (<4.4); CHOLESTEROL 146 mg/dL; CREATININE 1.5 mg/dL (0.4-1.0); GFR - MDRD 33 (>89); GLUCOSE 109 mg/dL (70-100); HDL CHOLESTEROL 70 mg/dL; LDL CHOLESTEROL,CALCULATED 64 mg/dL; LDL/HDL RATIO 0.9 (<4.4); POTASSIUM 3.9 mmol/L (3.5-5.0); SODIUM 137 mmol/L (135-145); TOTAL PROTEIN 6.4 g/dL (6.7-8.2); TRIGLYCERIDES 59 mg/dL; VLDL CHOLESTEROL 12 mg/dL
[2022-11-23 11:01] LABS: ESTIMATED AVERAGE GLUCOSE 134 mg/dL (70-100); HEMOGLOBIN A1c% 6.3 % (4.27-6.07)
== END 2022-11-23 08:29 | disposition home or self-care (01) ==
LOC: LAB 08:28
PROVIDERS: ATTEND Physician Assistant Medical
DX: E78.5 Hyperlipidemia, unspecified (principal); R60.9 Edema, unspecified; E11.22 Type 2 diabetes mellitus with diabetic chronic kidney disease; E03.9 Hypothyroidism, unspecified
CPT/HCPCS: 36415; 80053; 80061; 83036; 83721; 84443

== ENCOUNTER 2022-12-02 11:53 | Outpatient (CLI) | payer MEDICARE | END 2022-12-02 11:54 | disposition home or self-care (01) | LOC: LAB 11:53 | PROVIDERS: ATTEND Physician Assistant Medical | DX: I48.91 Unspecified atrial fibrillation (principal) | CPT/HCPCS: 36416; 85610 ==

== ENCOUNTER 2022-12-23 14:51 | Outpatient (CLI) | payer MEDICARE | END 2022-12-23 14:52 | disposition home or self-care (01) | LOC: LAB 14:51 | PROVIDERS: ATTEND Physician Assistant Medical | DX: I48.91 Unspecified atrial fibrillation (principal) | CPT/HCPCS: 36416; 85610 ==

== ENCOUNTER 2023-01-11 02:56 | Outpatient (CLI) | payer MEDICARE | END 2023-01-11 02:57 | disposition critical access hospital (66) | LOC: EMS 02:56 | DX: S01.01XA Laceration without foreign body of scalp, initial encounter (principal); W01.10XA Fall on same level from slipping, tripping and stumbling with subsequent striking against unspecified object, initial encounter; Y92.029 Unspecified place in mobile home as the place of occurrence of the external cause; Z79.01 Long term (current) use of anticoagulants | CPT/HCPCS: A0425; A0429 ==

== ENCOUNTER 2023-01-11 03:06 | Emergency (ER) | payer MEDICARE ==
--- NOTE | 2023-01-11 03:13 | ED Physician Documentation ---
PD HPI HEAD INJURY - Stated complaint Stated Complaint: GLF/HEAD INJ - History obtained from History obtained from: Patient, EMS - Additional information Additional information: BIBA. 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 She does not know why she fell; does not recall tripping nor losing her balance, but denies LOC (recalls entire event). Denies pain anywhere including headache. Denies visual changes, n/v. She sustained a laceration to the back of her head. Her medications include warfarin Review of Systems Eyes: denies: Loss of vision, Decreased vision Cardiac: denies: Chest pain / pressure, Palpitations GI: denies: Abdominal Pain, Nausea, Vomiting Skin: reports: Laceration (s) Musculoskeletal: reports: Reviewed and negative Neurologic: reports: Head injury. denies: Generalized weakness, Focal weakness, Numbness, Near syncope, Syncope, Confused, Altered mental status, Headache, LOC PD PAST MEDICAL HISTORY - Past Medical History Cardiovascular: Hypertension, Atrial fibrillation Respiratory: COPD Endocrine/Autoimmune: HyPOthyroidism GI: Chronic constipation : Frequency HEENT: None Psych: None Musculoskeletal: Osteoporosis Derm: None - Past Surgical History Past Surgical History: Yes General: Other - Present Medications Home Medications: Ambulatory Orders Medication Instructions Recorded Confirmed Atenolol 25 mg PO QPM 12/21/12 11/18/22 Levothyroxine Sodium [Levothroid] 100 mcg PO QDAC 12/21/12 11/18/22 Spironolactone 25 mg PO BID 09/05/17 11/18/22 Acetaminophen [Tylenol] 1 tab PO DAILY 05/16/18 11/18/22 Zoledronic Acid/Mannitol&Water 1 applic IM ONCE 05/16/18 11/18/22 [Reclast 5 mg/100 ml Solution] Amitriptyline [Elavil] 25 mg PO QPM 05/20/21 11/18/22 Furosemide [Lasix] 20 mg PO DAILY 05/20/21 11/18/22 Pramipexole [Mirapex] 0.25 mg PO HS 05/20/21 11/18/22 Atorvastatin [Lipitor] 10 mg ORAL DAILY PM 02/14/22 11/18/22 traMADol [Ultram] 50 mg PO BID PRN 02/14/22 11/18/22 Albuterol Sulfate 1 vial PO Q4HR PRN 11/18/22 11/18/22 Albuterol Sulfate [Proair 2 puffs PO Q4HR PRN 11/18/22 11/18/22 Respiclick] Budesonide/Formoterol Fumarate See Rx Instructions .ROUTE .COMPLEX 11/18/22 11/18/22 [Symbicort 160-4.5 Mcg Inhaler] Oxybutynin Chloride [Ditropan Xl] 5 mg PO HS PRN 11/18/22 11/18/22 Tiotropium [place] [Spiriva 1 cap PO DAILY 11/18/22 11/18/22 Handihaler] Warfarin [Coumadin] See Rx Instructions .ROUTE .COMPLEX 11/18/22 11/18/22 Acyclovir 400 mg PO TID 11/25/22 11/25/22 Acyclovir 400 mg PO TID 7 Days #21 tablet 11/25/22 - Allergies Allergies/Adverse Reactions: Allergies Allergy/AdvReac Type Severity Reaction Status Date / Time No Known Drug Allergies Allergy Verified 01/11/23 03:14 - Social History Does the pt smoke?: No Smoking Status: Never smoker Does the pt drink ETOH?: Yes Does the pt have substance abuse?: No - Immunizations Immunizations are current?: Yes - POLST Patient has POLST: Yes POLST Status: DNR (Patient states she has not filled out a POLST however wishes to have DO NOT RESUSCITATE order status) PD ED PE NORMAL - Vitals Vital signs reviewed: Yes - General General: Alert and oriented X 3, No acute distress, Well developed/nourished - HEENT HEENT: PERRL, EOMI PD ED PE EXPANDED - HEENT HEENT Visual: 1 - laceration (1.5 cm length without bony tenderness nor step-off deformity) Results - Vitals Vitals: Oxygen O2 Source Room air - Labs Labs: Laboratory Tests 01/11/23 03:15 WBC 6.3 RBC 4.73 Hgb 14.8 Hct 45.2 MCV 95.6 MCH 31.3 H MCHC 32.7 RDW 14.0 Plt Count 223 MPV 8.9 Neut # (Auto) 3.7 Lymph # (Auto) 1.7 [place] # (Auto) 0.7 Eos # (Auto) 0.2 Baso # (Auto) 0.1 Absolute Nucleated RBC 0.00 Nucleated RBC % 0.0 - Rads (name of study) CTH Relevant Findings:: Prelim report reviewed, See rad report Procedures - Laceration (location) Scalp Length in cm: 1.5 Wound type: Linear Anesthesia: Lidocaine 1% Wound preparation: Hibiclens, Irrigated copiously NS, Wound explored Skin layer closure: [place] Other: Patient tolerated well, No complications PD Medical Decision Making - ED course Complexity details: reviewed results, re-evaluated patient, considered differential, d/w patient ED course: Presents after head injury due to fall, on warfarin. No acute findings on CTH including no evidence of ICH nor skull fracture. She is AAOx3, conversant and appropriate throughout ED stay. Scalp laceration repaired as per procedure note, above. Return precautions are discussed. She is instructed to follow up with PMD in 7-10 days for removal of the noemí. Departure - Departure Disposition: 01 Home, Self Care Clinical Impression: Fall Qualifiers: Encounter type: initial encounter Qualified Code(s): W19.XXXA - Unspecified fall, initial encounter Scalp laceration Qualifiers: Encounter type: initial encounter Qualified Code(s): S01.01XA - Laceration without foreign body of scalp, initial encounter Condition: Good Instructions: ED Laceration Scalp Stitch Or Stap Comments: The laceration (cut) to your scalp was closed with noemí. The noemí need to be removed in 7 to 10 days. Contact your primary care provider's office this morning to arrange for an appointment for removal of the noemí. Discharge Date/Time: 01/11/23 07:42
[2023-01-11 03:24] LABS: BASOPHILS # (AUTO) 0.1 10^3/uL (0.0-0.1); EOSINOPHILS # (AUTO) 0.2 10^3/uL (0.0-0.7); EOSINOPHILS % (AUTO) 2.6 %; HCT - HEMATOCRIT 45.2 % (37.0-47.0); HGB - HEMOGLOBIN 14.8 g/dL (12.0-16.0); LYMPHOCYTES # (AUTO) 1.7 10^3/uL (1.5-3.5); LYMPHOCYTES % (AUTO) 27.2 %; MEAN CORPUSCULAR HEMOGLOBIN 31.3 pg (27.0-31.0); MEAN CORPUSCULAR HGB CONC 32.7 g/dL (32.0-36.0); MEAN CORPUSCULAR VOLUME 95.6 fL (81.0-99.0); MEAN PLATELET VOLUME 8.9 fL (7.9-10.8); MONOCYTES # (AUTO) 0.7 10^3/uL (0.0-1.0); MONOCYTES % (AUTO) 10.9 %; NEUTROPHILS # (AUTO) 3.7 10^3/uL (1.5-6.6); NEUTROPHILS % (AUTO) 58.1 %; PLT - PLATELET COUNT 223 10^3/uL (130-450); RED BLOOD COUNT 4.73 10^6/uL (4.20-5.40); WHITE BLOOD COUNT 6.3 x10^3/uL (4.8-10.8)
[2023-01-11] MEDS ORDERED: LIDOCAINE 1% 2 ML VIAL SUBQ STA (05:38)
[2023-01-11 07:42] VITALS: BP 109/67
--- NOTE | 2023-01-11 07:53 | CT Report ---
PROCEDURE: HEAD WO INDICATIONS: fall, head injury TECHNIQUE: Noncontrast 4.5 mm thick angled axial sections acquired from the foramen magnum to the vertex. For r adiation dose reduction, the following was used: automated exposure control, adjustment of mA and/or kV according to patient size. COMPARISON: 08/28/2022. FINDINGS: Image quality: Excellent. CSF spaces: Basal cisterns are patent. No extra-axial fluid collections. Ventricles are normal in size and shape. Brain: No midline shift. No intracranial masses or hemorrhage. Sidhu-white matter interface is norm al. Age-related volume loss and mild small vessel ischemic change. Intracranial carotid calcification s. The frontal white matter calcifications remain stable. Skull and face: Calvarium and visualized facial bones are intact, without suspicious lesions. Sinuses: Visualized sinuses and mastoids are clear. IMPRESSION: 1. No acute intracranial process. 2. Age-related volume loss and small vessel ischemic change. 3. Stable left frontal calcifications. Findings are concordant with preliminary interpretation provided by [facility]. Reviewed by: Aubrey Blackmon MD on 01/11/2023 7:52 AM PDT Approved by: Aurbey Blackmon MD on 01/11/2023 7:52 AM PDT Station ID: [id number]
== END 2023-01-11 07:42 | disposition home or self-care (01) ==
LOC: EDUNIT# → ED 03:06
DX: S01.01XA Laceration without foreign body of scalp, initial encounter (principal); W18.30XA Fall on same level, unspecified, initial encounter; Y93.01 Activity, walking, marching and hiking; Y92.89 Other specified places as the place of occurrence of the external cause; I10 Essential (primary) hypertension; I48.91 Unspecified atrial fibrillation; J44.9 Chronic obstructive pulmonary disease, unspecified; E03.9 Hypothyroidism, unspecified; Z79.899 Other long term (current) drug therapy; Z79.51 Long term (current) use of inhaled steroids; Z79.01 Long term (current) use of anticoagulants
CPT/HCPCS: 12001; 36415; 80048; 85025; 85610; 99284

== ENCOUNTER 2023-01-13 12:21 | Emergency (ER) | payer MEDICARE ==
--- NOTE | 2023-01-13 12:53 | ED Physician Documentation ---
History of Present Illness - Stated complaint Stated Complaint: SWOLLEN LEGS/ DEHYDRATION - Chief complaint Chief Complaint: General - History obtained from History obtained from: Patient, Caregiver - Additonal information Additional information: 87-year-old female presents today with her caregiver for several different issues. She fell 4 days ago and sustained a laceration to the back of her head. She was seen here at that time and had reassuring exam however since Then, caregiver states that patient has seemed To have a mild increase in confusion. She has not had any focal weakness or numbness but apparently has Said some things that sounded like she was confused. She has some mild baseline confusion. She has not had any lethargy, no focal weakness, no numbness, no dysarthria or aphasia, no facial droop. She is on Coumadin though this has been held since her fall. She also is having increasing lower extremity swelling. She has chronic edema in several months ago was changed from Lasix to torsemide as her edema had worsening and it has continued to worsen. She does tend to keep her legs in a dependent position as she frequently has to get up to go to the bathroom and it is difficult for her to do so from an elevated position. She has not had sob or cp. No abdominal pain nausea vomiting or diarrhea. She has no dysuria urgency or frequency. 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 Review of Systems Constitutional: reports: Reviewed and negative Eyes: reports: Reviewed and negative Ears: reports: Reviewed and negative Nose: reports: Reviewed and negative Throat: reports: Reviewed and negative Cardiac: reports: Pedal edema. denies: Chest pain / pressure, Palpitations Respiratory: reports: Reviewed and negative. denies: Dyspnea, Cough, Hemoptysis, Wheezing GI: reports: Reviewed and negative : reports: Reviewed and negative Skin: reports: Reviewed and negative Musculoskeletal: reports: Reviewed and negative Neurologic: reports: Reviewed and negative Psychiatric: reports: Reviewed and negative PD PAST MEDICAL HISTORY - Past Medical History Past Medical History: Yes Cardiovascular: Hypertension, Atrial fibrillation Respiratory: COPD Endocrine/Autoimmune: HyPOthyroidism GI: Chronic constipation : Frequency HEENT: None Psych: None Musculoskeletal: Osteoporosis Derm: None - Past Surgical History Past Surgical History: Yes General: Other - Present Medications Home Medications: Ambulatory Orders Medication Instructions Recorded Confirmed Atenolol 25 mg PO QPM 12/21/12 11/18/22 Levothyroxine Sodium [Levothroid] 100 mcg PO QDAC 12/21/12 11/18/22 Spironolactone 25 mg PO BID 09/05/17 11/18/22 Acetaminophen [Tylenol] 1 tab PO DAILY 05/16/18 11/18/22 Zoledronic Acid/Mannitol&Water 1 applic IM ONCE 05/16/18 11/18/22 [Reclast 5 mg/100 ml Solution] Amitriptyline [Elavil] 25 mg PO QPM 05/20/21 11/18/22 Furosemide [Lasix] 20 mg PO DAILY 05/20/21 11/18/22 Pramipexole [Mirapex] 0.25 mg PO HS 05/20/21 11/18/22 Atorvastatin [Lipitor] 10 mg ORAL DAILY PM 02/14/22 11/18/22 traMADol [Ultram] 50 mg PO BID PRN 02/14/22 11/18/22 Albuterol Sulfate 1 vial PO Q4HR PRN 11/18/22 11/18/22 Albuterol Sulfate [Proair 2 puffs PO Q4HR PRN 11/18/22 11/18/22 Respiclick] Budesonide/Formoterol Fumarate See Rx Instructions .ROUTE .COMPLEX 11/18/22 11/18/22 [Symbicort 160-4.5 Mcg Inhaler] Oxybutynin Chloride [Ditropan Xl] 5 mg PO HS PRN 11/18/22 11/18/22 Tiotropium [place] [Spiriva 1 cap PO DAILY 11/18/22 11/18/22 Handihaler] Warfarin [Coumadin] See Rx Instructions .ROUTE .COMPLEX 11/18/22 11/18/22 Acyclovir 400 mg PO TID 11/25/22 11/25/22 Acyclovir 400 mg PO TID 7 Days #21 tablet 11/25/22 - Allergies Allergies/Adverse Reactions: Allergies Allergy/AdvReac Type Severity Reaction Status Date / Time No Known Drug Allergies Allergy Verified 01/13/23 12:42 - Social History Does the pt smoke?: No Smoking Status: Never smoker Does the pt drink ETOH?: Yes Does the pt have substance abuse?: No - Immunizations Immunizations are current?: Yes - POLST Patient has POLST: Yes POLST Status: DNR (Patient states she has not filled out a POLST however wishes to have DO NOT RESUSCITATE order status) PD ED PE NORMAL - Vitals Vital signs reviewed: Yes - General General: Alert and oriented X 3, No acute distress, Well developed/nourished - HEENT HEENT: Atraumatic, Moist mucous membranes, Pharynx benign - Neck Neck: Supple, no meningeal sign, No JVD - Cardiac Cardiac: No murmur, Other (afib, irreg) - Respiratory Respiratory: No respiratory distress, Clear bilaterally - Abdomen Abdomen: Normal bowel sounds, Soft, Non tender, Non distended - Derm Derm: Normal color, Warm and dry, No rash - Extremities Extremities: No deformity, No tenderness to palpate, Normal ROM s pain, No calf tenderness / cord, Other (bilateral lower ext lymphedema w/ pitting edema. 2+ pedal pulses. bruises on all ext, no deformities or ttp. ) - Neuro Neuro: Alert and oriented X 3, No motor deficit, No sensory deficit, Normal speech Eye Opening: Spontaneous Motor: Obeys Commands Verbal: Oriented GCS Score: 15 - Psych Psych: Normal mood, Normal affect Results - Vitals Vitals: Vital Signs - 24 hr 01/13/23 01/13/23 12:35 14:41 Temperature 36.5 C Heart Rate 71 76 Respiratory 17 15 Rate Blood Pressure 139/106 H 128/68 O2 Saturation 99 100 Oxygen O2 Source Room air - EKG (time done) No standard instances EKG releavant findings:: EKG personally interpreted by author of this note. Relevant findings are: Rate: Rate (enter#) (67) Rhythm: Atrial fibrillation Intervals: LBBB Ischemia: Q waves, Non specific changes Compare to prior EKG: Unchanged from prior EKG Computer interpretation: Agree with computer - Labs Labs: Laboratory Tests 01/13/23 01/13/23 01/13/23 13:34 13:46 13:46 WBC 6.6 RBC 4.73 Hgb 14.7 Hct 44.9 MCV 94.9 MCH 31.1 H MCHC 32.7 RDW 14.1 Plt Count 190 MPV 9.1 Neut # (Auto) 4.0 Lymph # (Auto) 1.8 [place] # (Auto) 0.7 Eos # (Auto) 0.1 Baso # (Auto) 0.1 Absolute Nucleated RBC 0.00 Nucleated RBC % 0.0 Sodium Potassium Chloride Carbon Dioxide Anion Gap BUN Creatinine Estimated GFR (MDRD) Glucose Calcium Total Bilirubin AST ALT Alkaline Phosphatase Troponin I High Sens B-Natriuretic Peptide 64 Total Protein Albumin Globulin Albumin/Globulin Ratio Lipase Urine Color YELLOW Urine Clarity CLEAR Urine pH 5.0 Ur Specific [place] <=1.005 Urine Protein NEGATIVE Urine Glucose (UA) NEGATIVE Urine Ketones NEGATIVE Urine Occult Blood TRACE-INTA Urine Nitrite NEGATIVE Urine Bilirubin NEGATIVE Urine Urobilinogen 0.2 (NORMAL) Ur Leukocyte Esterase NEGATIVE Ur Microscopic Review NOT INDICATED Urine Culture Comments NOT INDICATED 01/13/23 01/13/23 01/13/23 13:46 13:46 14:54 WBC RBC Hgb Hct MCV MCH MCHC RDW Plt Count MPV Neut # (Auto) Lymph # (Auto) [place] # (Auto) Eos # (Auto) Baso # (Auto) Absolute Nucleated RBC Nucleated RBC % Sodium 136 Potassium 3.9 Chloride 99 L Carbon Dioxide 26 Anion Gap 11.0 BUN 42 H Creatinine 1.4 H Estimated GFR (MDRD) 35 L Glucose 99 Calcium 10.2 Total Bilirubin 0.7 AST 32 ALT 28 Alkaline Phosphatase 47 Troponin I High Sens 18.4 H* 18.1 H* B-Natriuretic Peptide Total Protein 6.8 Albumin 4.2 Globulin 2.6 Albumin/Globulin Ratio 1.6 Lipase 27 Urine Color Urine Clarity Urine pH Ur Specific [place] Urine Protein Urine Glucose (UA) Urine Ketones Urine Occult Blood Urine Nitrite Urine Bilirubin Urine Urobilinogen Ur Leukocyte Esterase Ur Microscopic Review Urine Culture Comments - Rads (name of study) No standard instances Relevant Findings:: Final report received PD Medical Decision Making - ED course Complexity details: reviewed old records, reviewed results, re-evaluated patient, considered differential, d/w patient ED course: This is an 87-year-old female with past medical history as listed above who presented with lower extremity edema as well as mild increasing confusion. The patient is well-appearing on physical exam, nontoxic, she is awake alert and conversant with me, I do not note any confusion on exam, and her neurologic exam is intact. She does have extensive lymphedema both lower extremities, with some pitting pedal edema. She admits she does not elevate her legs and often does not wear compression though does have a caregiver 3 times a week that does do compression markell wraps on her legs sometimes. She is compliant with her torsemide. I obtained labs to evaluate for possible CHF Exacerbation given her increased swelling and labs were largely stable, consistent with baseline, her BNP is normal, her chest x-ray shows no signs of acute fluid overload. Her troponin is mildly elevated though a repeat is flat and I suspect this is chronic for the patient given her multiple comorbidities. The patient is not having any chest pain to suggest acute coronary syndrome and there are no acute ischemic changes on her EKG. She was given 40 mg of IV Lasix And advised to continue her torsemide at home and strongly encouraged to keep legs elevated and utilize compression stockings. Patient's caregiver had reported some increase in confusion though this was not appreciable to me on exam, I did however obtain a head CT because of her recent fall and head injury and this was negative for acute findings. She has no signs of infection on exam, no pneumonia, no urinary tract infection and her physical exam is otherwise reassuring, nothing to suggest infection or other etiology of possible confusion. I do not see indication for MRI at this time as patient had no focal neurodeficits and does have some baseline confusion that is only possibly mildly worse since her fall. I therefore do think she is stable for discharge home at this time. I did talk with the patient about the fact that she may benefit from assisted living as she has had some falls at home and only has part-time caregiving services but patient adamantly declines this and states that she wants to remain in her home. She does have a number of family members and neighbors that check on her regularly, does have a fall alert bracelet, and has caregiving services 3 days a week which she is going to try to increase to 4. I did encourage her to do so. The patient is stable for discharge home at this time, return precautions reviewed in detail with the patient. Departure - Departure Disposition: 01 Home, Self Care Clinical Impression: Lower extremity edema, Lymphedema, Confusion Condition: Good Instructions: ED Confusion, ED Head Injury Closed, ED Lymphedema Comments: Your head CT today is stable, there is no signs of acute bleeding. I suspect your mild increasing confusion is postconcussive from your prior fall. This typically resolves in the next week or 2. Your neurologic exam here was normal. You do have significant edema in lower both lower extremities, And unfortunately this has not responded well to diuretic medication to reduce fluid. There is no sign of increased fluid in your lungs however and therefore treatment is primarily supportive.It is extremely important that you keep your legs elevated whenever possible and you may benefit from light compression stockings or compression wraps to help decrease the fluid. Please also adhere to a low-salt diet. As we discussed, I am concerned about your falls at home but you do wish to remain in your home and live independently. I would like you to consider hiring additional caregivers and ensure that you have people checking on you frequently and that you are always wearing your fall alert bracelet. If you change your mind and are interested in usp placement, your primary care provider Or home health team may be able to assist with arrangements. If your symptoms are worsening, return to the ER.
--- NOTE | 2023-01-13 12:53 | XRAY Report ---
PROCEDURE: Chest 1 View X-Ray INDICATIONS: dyspnea TECHNIQUE: One view of the chest was acquired. COMPARISON: 09/07/2022. FINDINGS: Surgical changes and devices: None. Lungs and pleura: No pleural effusions or pneumothorax. Lungs are clear. Mediastinum: Mediastinal contours appear normal. Heart size is normal. Bones and chest wall: No suspicious bony lesions. Overlying soft tissues appear unremarkable. IMPRESSION: No acute cardiopulmonary process. Reviewed by: Aubrey Blackmon MD on 01/13/2023 12:52 PM PDT Approved by: Aubrey Blackmon MD on 01/13/2023 12:52 PM PDT Station ID: [id number]
[2023-01-13] MEDS ORDERED: FUROSEMIDE 40 MG/4 ML VIAL IVP STA (12:55)
[2023-01-13 13:45] LABS: BILIRUBIN,URINE NEGATIVE (NEGATIVE); GLUCOSE, URINE (UA) NEGATIVE (NEGATIVE); KETONES,URINE (UA) NEGATIVE (NEGATIVE); LEUKOCYTE ESTERASE, URINE NEGATIVE (NEGATIVE); NITRITE,URINE NEGATIVE (NEGATIVE); OCCULT BLOOD,URINE TRACE-INTA (NEGATIVE); PROTEIN,URINE NEGATIVE (NEGATIVE); UROBILINOGEN,URINE 0.2 (NORMAL) E.U./dL (NORMAL)
[2023-01-13 13:46] LABS: CLARITY,URINE CLEAR (CLEAR)
[2023-01-13 13:55] LABS: BASOPHILS # (AUTO) 0.1 10^3/uL (0.0-0.1); BASOPHILS % (AUTO) 0.9 %; EOSINOPHILS # (AUTO) 0.1 10^3/uL (0.0-0.7); HCT - HEMATOCRIT 44.9 % (37.0-47.0); HGB - HEMOGLOBIN 14.7 g/dL (12.0-16.0); LYMPHOCYTES # (AUTO) 1.8 10^3/uL (1.5-3.5); LYMPHOCYTES % (AUTO) 26.4 %; MEAN CORPUSCULAR HEMOGLOBIN 31.1 pg (27.0-31.0); MEAN CORPUSCULAR HGB CONC 32.7 g/dL (32.0-36.0); MEAN CORPUSCULAR VOLUME 94.9 fL (81.0-99.0); MEAN PLATELET VOLUME 9.1 fL (7.9-10.8); MONOCYTES # (AUTO) 0.7 10^3/uL (0.0-1.0); MONOCYTES % (AUTO) 10.7 %; NEUTROPHILS % (AUTO) 59.7 %; PLT - PLATELET COUNT 190 10^3/uL (130-450); RED BLOOD COUNT 4.73 10^6/uL (4.20-5.40); RED CELL DISTRIBUTION WIDTH 14.1 % (12.0-15.0); WHITE BLOOD COUNT 6.6 x10^3/uL (4.8-10.8)
[2023-01-13 14:08] LABS: ALBUMIN 4.2 g/dL (3.2-5.5); ALBUMIN/GLOBULIN RATIO 1.6 (1.0-2.2); BILIRUBIN,TOTAL 0.7 mg/dL (0.2-1.0); CALCIUM 10.2 mg/dL (8.5-10.3); CREATININE 1.4 mg/dL (0.4-1.0); POTASSIUM 3.9 mmol/L (3.5-5.0); TOTAL PROTEIN 6.8 g/dL (6.7-8.2)
--- NOTE | 2023-01-13 14:56 | CT Report ---
PROCEDURE: HEAD WO INDICATIONS: fell a few days ago, increasing confusion, on warf TECHNIQUE: Noncontrast 4.5 mm thick angled axial sections acquired from the foramen magnum to the vertex. For r adiation dose reduction, the following was used: automated exposure control, adjustment of mA and/or kV according to patient size. COMPARISON: 08/28/2022, 01/11/2023. FINDINGS: Image quality: Excellent. CSF spaces: Basal cisterns are patent. No extra-axial fluid collections. Ventricles are normal in size and shape. Brain: No midline shift. No intracranial masses or hemorrhage. Sidhu-white matter interface is norm al. Stable benign calcification, left frontal region. Skull and face: Calvarium and visualized facial bones are intact, without suspicious lesions. Sinuses: Visualized sinuses and mastoids are clear. IMPRESSION: 1. There is a stable benign calcification, left frontal region. 2. No evidence acute intracranial process. Comment: Consider brain MRI with and without contrast. Reviewed by: Aubrey Blackmon MD on 01/13/2023 2:55 PM PDT Approved by: Aubrey Blackmon MD on 01/13/2023 2:55 PM PDT Station ID: [id number]
[2023-01-13 16:32] VITALS: BP 113/84
== END 2023-01-13 16:53 | disposition home or self-care (01) ==
LOC: ED 12:21
DX: R60.0 Localized edema (principal); I89.0 Lymphedema, not elsewhere classified; R41.0 Disorientation, unspecified; I10 Essential (primary) hypertension; I48.91 Unspecified atrial fibrillation; J44.9 Chronic obstructive pulmonary disease, unspecified; E03.9 Hypothyroidism, unspecified; Z79.01 Long term (current) use of anticoagulants; Z79.899 Other long term (current) drug therapy; Z79.51 Long term (current) use of inhaled steroids; Z66 Do not resuscitate
CPT/HCPCS: 36415; 80053; 81001; 81003; 83690; 83880; 84484; 85025; 87086; 93005; 96374; 99284

== ENCOUNTER 2023-01-23 05:24 | Outpatient (CLI) | payer MEDICARE | END 2023-01-23 05:25 | disposition EMS.NT | LOC: EMS 05:24 | DX: Z03.89 Encounter for observation for other suspected diseases and conditions ruled out (principal) ==

== ENCOUNTER 2023-01-25 14:00 | Emergency (ER) | payer MEDICARE ==
--- NOTE | 2023-01-25 14:40 | XRAY Report ---
PROCEDURE: Chest 1 View X-Ray INDICATIONS: Chest Pain TECHNIQUE: One view of the chest was acquired. COMPARISON: 01/13/2023. FINDINGS: Surgical changes and devices: None. Lungs and pleura: No pleural effusions or pneumothorax. Lungs are clear. Mediastinum: Mediastinal contours appear normal. Heart size is normal. Bones and chest wall: No suspicious bony lesions. Overlying soft tissues appear unremarkable. IMPRESSION: No acute cardiopulmonary process. Reviewed by: Aubrey Blackmon MD on 01/25/2023 2:39 PM PDT Approved by: Aubrey Blackmon MD on 01/25/2023 2:39 PM PDT Station ID: [id number]
[2023-01-25 14:49] LABS: BASOPHILS # (AUTO) 0.1 10^3/uL (0.0-0.1); BASOPHILS % (AUTO) 0.7 %; EOSINOPHILS # (AUTO) 0.1 10^3/uL (0.0-0.7); EOSINOPHILS % (AUTO) 1.5 %; HCT - HEMATOCRIT 46.2 % (37.0-47.0); HGB - HEMOGLOBIN 15.2 g/dL (12.0-16.0); LYMPHOCYTES # (AUTO) 1.4 10^3/uL (1.5-3.5); LYMPHOCYTES % (AUTO) 19.9 %; MEAN CORPUSCULAR HEMOGLOBIN 31.3 pg (27.0-31.0); MEAN CORPUSCULAR HGB CONC 32.9 g/dL (32.0-36.0); MEAN CORPUSCULAR VOLUME 95.3 fL (81.0-99.0); MEAN PLATELET VOLUME 9.1 fL (7.9-10.8); MONOCYTES # (AUTO) 0.5 10^3/uL (0.0-1.0); MONOCYTES % (AUTO) 6.7 %; NEUTROPHILS # (AUTO) 4.9 10^3/uL (1.5-6.6); NEUTROPHILS % (AUTO) 70.9 %; PLT - PLATELET COUNT 217 10^3/uL (130-450); RED BLOOD COUNT 4.85 10^6/uL (4.20-5.40); RED CELL DISTRIBUTION WIDTH 14.5 % (12.0-15.0); WHITE BLOOD COUNT 6.8 x10^3/uL (4.8-10.8)
[2023-01-25 14:55] LABS: INR 1.4 (0.8-1.2); PT - PROTHROMBIN TIME 15.4 secs (9.9-12.6)
[2023-01-25 14:56] VITALS: BP 119/68
--- NOTE | 2023-01-25 14:56 | ED Physician Documentation ---
History of Present Illness - Stated complaint Stated Complaint: SWOLLEN LEGS/HANDS - Chief complaint Chief Complaint: Cardiac - History obtained from History obtained from: Patient - Additonal information Additional information: 87-year-old woman with history of CHF and anasarca. Currently maintained on 40 mg a day of torsemide. Recently was recommended to add Lasix but did not do so. Also has been off of her Coumadin since the head injury a few weeks ago. Presents with worsening pedal edema. It is not associated with chest pain or trouble breathing. PD PAST MEDICAL HISTORY - Past Medical History Cardiovascular: Hypertension, Atrial fibrillation Respiratory: COPD Endocrine/Autoimmune: HyPOthyroidism GI: Chronic constipation : Frequency HEENT: None Psych: None Musculoskeletal: Osteoporosis Derm: None - Past Surgical History Past Surgical History: Yes General: Other - Present Medications Home Medications: Ambulatory Orders Medication Instructions Recorded Confirmed Atenolol 25 mg PO QPM 12/21/12 11/18/22 Levothyroxine Sodium [Levothroid] 100 mcg PO QDAC 12/21/12 11/18/22 Spironolactone 25 mg PO BID 09/05/17 11/18/22 Acetaminophen [Tylenol] 1 tab PO DAILY 05/16/18 11/18/22 Zoledronic Acid/Mannitol&Water 1 applic IM ONCE 05/16/18 11/18/22 [Reclast 5 mg/100 ml Solution] Amitriptyline [Elavil] 25 mg PO QPM 05/20/21 11/18/22 Furosemide [Lasix] 20 mg PO DAILY 05/20/21 11/18/22 Pramipexole [Mirapex] 0.25 mg PO HS 05/20/21 11/18/22 Atorvastatin [Lipitor] 10 mg ORAL DAILY PM 02/14/22 11/18/22 traMADol [Ultram] 50 mg PO BID PRN 02/14/22 11/18/22 Albuterol Sulfate 1 vial PO Q4HR PRN 11/18/22 11/18/22 Albuterol Sulfate [Proair 2 puffs PO Q4HR PRN 11/18/22 11/18/22 Respiclick] Budesonide/Formoterol Fumarate See Rx Instructions .ROUTE .COMPLEX 11/18/22 11/18/22 [Symbicort 160-4.5 Mcg Inhaler] Oxybutynin Chloride [Ditropan Xl] 5 mg PO HS PRN 11/18/22 11/18/22 Tiotropium [place] [Spiriva 1 cap PO DAILY 11/18/22 11/18/22 Handihaler] Warfarin [Coumadin] See Rx Instructions .ROUTE .COMPLEX 11/18/22 11/18/22 Acyclovir 400 mg PO TID 11/25/22 11/25/22 Acyclovir 400 mg PO TID 7 Days #21 tablet 11/25/22 Spironolactone [Aldactone] 25 mg PO DAILY #30 tablet 01/25/23 Torsemide [Soaanz] 40 mg PO BID #60 tablet 01/25/23 - Allergies Allergies/Adverse Reactions: Allergies Allergy/AdvReac Type Severity Reaction Status Date / Time No Known Drug Allergies Allergy Verified 01/25/23 14:20 - Social History Does the pt smoke?: No Smoking Status: Never smoker Does the pt drink ETOH?: Yes Does the pt have substance abuse?: No - Immunizations Immunizations are current?: Yes - POLST Patient has POLST: Yes POLST Status: DNR (Patient states she has not filled out a POLST however wishes to have DO NOT RESUSCITATE order status) PD ED PE NORMAL - Vitals Vital signs reviewed: Yes - General General: Alert and oriented X 3, No acute distress - Cardiac Cardiac: No murmur, Strong equal pulses, Other (Irregularly irregular without murmur) - Respiratory Respiratory: No respiratory distress, Clear bilaterally - Abdomen Abdomen: Non tender - Extremities Extremities: Other (4+ pitting pedal edema up to mid thigh. There is a blister on the lateral right calf with mild surrounding redness.) - Neuro Neuro: Alert and oriented X 3, Normal speech Results - Vitals Vitals: Vital Signs - 24 hr 01/25/23 01/25/23 01/25/23 14:08 14:53 15:39 Temperature 36.2 C L Heart Rate 66 69 77 Respiratory 20 17 19 Rate Blood Pressure 120/84 H 119/68 O2 Saturation 98 100 95 Oxygen O2 Source Room air - EKG (time done) 1417 EKG releavant findings:: EKG personally interpreted by author of this note. Relevant findings are: Rate: Rate (enter#) (66) Rhythm: Atrial fibrillation Intervals: Other (IVCD) Ischemia: Normal ST segments - Labs Labs: Laboratory Tests 01/25/23 01/25/23 01/25/23 14:41 14:41 14:41 WBC 6.8 RBC 4.85 Hgb 15.2 Hct 46.2 MCV 95.3 MCH 31.3 H MCHC 32.9 RDW 14.5 Plt Count 217 MPV 9.1 Neut # (Auto) 4.9 Lymph # (Auto) 1.4 L [place] # (Auto) 0.5 Eos # (Auto) 0.1 Baso # (Auto) 0.1 Absolute Nucleated RBC 0.00 Nucleated RBC % 0.0 PT 15.4 H INR 1.4 H Sodium 137 Potassium 3.5 Chloride 96 L Carbon Dioxide 31 Anion Gap 10.0 BUN 47 H Creatinine 1.5 H Estimated GFR (MDRD) 33 L Glucose 188 H Calcium 10.2 Total Bilirubin 0.9 AST 23 ALT 24 Alkaline Phosphatase 53 Troponin I High Sens B-Natriuretic Peptide Total Protein 7.5 Albumin 4.4 Globulin 3.1 Albumin/Globulin Ratio 1.4 Lipase 27 01/25/23 01/25/23 14:41 14:41 WBC RBC Hgb Hct MCV MCH MCHC RDW Plt Count MPV Neut # (Auto) Lymph # (Auto) [place] # (Auto) Eos # (Auto) Baso # (Auto) Absolute Nucleated RBC Nucleated RBC % PT INR Sodium Potassium Chloride Carbon Dioxide Anion Gap BUN Creatinine Estimated GFR (MDRD) Glucose Calcium Total Bilirubin AST ALT Alkaline Phosphatase Troponin I High Sens 18.8 H* B-Natriuretic Peptide 116 H Total Protein Albumin Globulin Albumin/Globulin Ratio Lipase PD Medical Decision Making - ED course ED course: 87-year-old woman with anasarca. CBC is normal. INR slight elevation at 1.4. She has chronic kidney disease, creatinine is at her baseline. Troponin mildly elevated but this is also very consistent with prior values on the chart. She was administered 2 mg of IV Bumex here and we will add Aldactone noting low normal potassium here. We will double her torsemide. Departure - Departure Disposition: 01 Home, Self Care Clinical Impression: Anasarca Condition: Good Record reviewed to determine appropriate education?: Yes Instructions: ED Diet Low Salt 2Gm Prescriptions: Spironolactone [Aldactone] 25 mg PO DAILY #30 tablet Torsemide [Soaanz] 40 mg PO BID #60 tablet Comments: I recommend restarting your warfarin, and we are going to increase her torsemide from 40 mg once a day to 40 mg twice a day. To that I am adding spironolactone, diuretic that works differently which will help increase your potassium which today was on the low end of normal. Call your doctor to arrange a follow-up appointment, make the next available appointment. In the interim, return anytime if worse or if new symptoms develop. Note to H IM: Please copy chart to Dr. Arguello, cardiology at [facility], and MARK Ruiz, nephrology in [place].
[2023-01-25] MEDS ORDERED: BUMETANIDE 1 MG/4 ML VIAL IVP STA (14:57)
[2023-01-25 15:00] LABS: ALBUMIN 4.4 g/dL (3.2-5.5); ALBUMIN/GLOBULIN RATIO 1.4 (1.0-2.2); BILIRUBIN,TOTAL 0.9 mg/dL (0.2-1.0); CALCIUM 10.2 mg/dL (8.5-10.3); CREATININE 1.5 mg/dL (0.4-1.0); POTASSIUM 3.5 mmol/L (3.5-5.0); TOTAL PROTEIN 7.5 g/dL (6.7-8.2)
[2023-01-25] MEDS ORDERED: SPIRONOLACTONE 25 MG TABLET PO STA (15:42)
== END 2023-01-25 16:39 | disposition home or self-care (01) ==
LOC: ED 14:00
DX: R60.1 Generalized edema (principal); I13.0 Hypertensive heart and chronic kidney disease with heart failure and stage 1 through stage 4 chronic kidney disease, or unspecified chronic kidney disease; N18.9 Chronic kidney disease, unspecified; I50.9 Heart failure, unspecified; I48.91 Unspecified atrial fibrillation; J44.9 Chronic obstructive pulmonary disease, unspecified; E03.9 Hypothyroidism, unspecified; Z79.899 Other long term (current) drug therapy; Z79.01 Long term (current) use of anticoagulants; Z79.51 Long term (current) use of inhaled steroids; Z66 Do not resuscitate
CPT/HCPCS: 36415; 71045; 80053; 83690; 83880; 84484; 85025; 85610; 93005; 96374; 99283; 99284; A9270

== ENCOUNTER 2023-01-30 08:00 | Outpatient (CLI) | payer MEDICARE | END 2023-01-30 23:59 | disposition home or self-care (01) | LOC: LAB.WCP 08:00 | PROVIDERS: ATTEND Physician Assistant Medical | DX: L03.115 Cellulitis of right lower limb (principal) | CPT/HCPCS: 87070; 87077; 87181; 87205 ==

== ENCOUNTER 2023-02-01 04:19 | Outpatient (CLI) | payer MEDICARE | END 2023-02-01 23:59 | disposition EMS.NT | LOC: EMS 04:19 | DX: R53.1 Weakness (principal) ==

== ENCOUNTER 2023-02-01 10:26 | Outpatient (CLI) | payer MEDICARE | END 2023-02-01 23:59 | disposition left against medical advice (07) | LOC: EMS 10:26 | DX: Z03.89 Encounter for observation for other suspected diseases and conditions ruled out (principal); Z79.01 Long term (current) use of anticoagulants ==

== ENCOUNTER 2023-02-01 20:11 | Emergency (ER) | payer MEDICARE ==
--- NOTE | 2023-02-01 21:12 | ED Physician Documentation ---
History of Present Illness - Stated complaint Stated Complaint: SWOLLEN LEGS - Chief complaint Chief Complaint: Neuro - History obtained from History obtained from: Patient, Family (son) - Additonal information Additional information: 87-year-old woman with history of CHF, A-fib on warfarin presents status post ground-level fall at 0800 with head trauma but no LOC. Also complains of midthoracic back pain. Patient also has been experiencing increased confusion for the past few days per her son with hallucinations of "pink people". She endorses dysuria. Also with bilateral lower extremity edema that is chronic but worsening for the past week.Denies fever or other symptoms. PD PAST MEDICAL HISTORY - Past Medical History Cardiovascular: Hypertension, Atrial fibrillation Respiratory: COPD Endocrine/Autoimmune: HyPOthyroidism GI: Chronic constipation : Frequency HEENT: None Psych: None Musculoskeletal: Osteoporosis Derm: None - Past Surgical History Past Surgical History: Yes General: Other - Present Medications Home Medications: Ambulatory Orders Medication Instructions Recorded Confirmed Atenolol 25 mg PO QPM 12/21/12 11/18/22 Levothyroxine Sodium [Levothroid] 100 mcg PO QDAC 12/21/12 11/18/22 Spironolactone 25 mg PO BID 09/05/17 11/18/22 Acetaminophen [Tylenol] 1 tab PO DAILY 05/16/18 11/18/22 Zoledronic Acid/Mannitol&Water 1 applic IM ONCE 05/16/18 11/18/22 [Reclast 5 mg/100 ml Solution] Amitriptyline [Elavil] 25 mg PO QPM 05/20/21 11/18/22 Furosemide [Lasix] 20 mg PO DAILY 05/20/21 11/18/22 Pramipexole [Mirapex] 0.25 mg PO HS 05/20/21 11/18/22 Atorvastatin [Lipitor] 10 mg ORAL DAILY PM 02/14/22 11/18/22 traMADol [Ultram] 50 mg PO BID PRN 02/14/22 11/18/22 Albuterol Sulfate 1 vial PO Q4HR PRN 11/18/22 11/18/22 Albuterol Sulfate [Proair 2 puffs PO Q4HR PRN 11/18/22 11/18/22 Respiclick] Budesonide/Formoterol Fumarate See Rx Instructions .ROUTE .COMPLEX 11/18/22 11/18/22 [Symbicort 160-4.5 Mcg Inhaler] Oxybutynin Chloride [Ditropan Xl] 5 mg PO HS PRN 11/18/22 11/18/22 Tiotropium [place] [Spiriva 1 cap PO DAILY 11/18/22 11/18/22 Handihaler] Warfarin [Coumadin] See Rx Instructions .ROUTE .COMPLEX 11/18/22 11/18/22 Acyclovir 400 mg PO TID 11/25/22 11/25/22 Acyclovir 400 mg PO TID 7 Days #21 tablet 11/25/22 Spironolactone [Aldactone] 25 mg PO DAILY #30 tablet 01/25/23 Torsemide [Soaanz] 40 mg PO BID #60 tablet 01/25/23 - Allergies Allergies/Adverse Reactions: Allergies Allergy/AdvReac Type Severity Reaction Status Date / Time No Known Drug Allergies Allergy Verified 02/01/23 20:41 - Social History Does the pt smoke?: No Smoking Status: Never smoker Does the pt drink ETOH?: Yes Does the pt have substance abuse?: No - Immunizations Immunizations are current?: Yes - POLST Patient has POLST: Yes POLST Status: DNR (Patient states she has not filled out a POLST however wishes to have DO NOT RESUSCITATE order status) PD ED PE NORMAL - Vitals Vital signs reviewed: Yes - General General: No acute distress, Other (alert, elderly appearing) - HEENT HEENT: Atraumatic, PERRL, EOMI - Neck Neck: No bony TTP - Cardiac Cardiac: RRR - Respiratory Respiratory: No respiratory distress, Clear bilaterally - Abdomen Abdomen: Non tender, Non distended - Back Back: Other (Mid thoracic spine discomfort to palpation. Otherwise nontender) - Derm Derm: Normal color, Warm and dry - Extremities Extremities: Other (Significant bilateral lower extremity pitting edema 2+. DP pulses palpable bilaterally) - Neuro Neuro: No motor deficit, No sensory deficit, Other (Alert and oriented) - Psych Psych: Normal mood, Normal affect Results - Vitals Vitals: Vital Signs - 24 hr 02/01/23 02/01/23 02/01/23 20:19 20:56 21:13 Temperature 36.5 C Heart Rate 61 74 Respiratory 20 19 20 Rate Blood Pressure 123/65 118/70 O2 Saturation 92 02/01/23 02/01/23 22:05 23:36 Temperature Heart Rate 85 78 Respiratory 18 19 Rate Blood Pressure 104/89 H 103/73 O2 Saturation 98 99 Oxygen O2 Source Room air - EKG (time done) 2102 EKG releavant findings:: EKG personally interpreted by author of this note. Relevant findings are: Rate: Rate (enter#) (87) Rhythm: Atrial fibrillation [place]: LAD QRS: Normal Ischemia: Normal ST segments - Labs Labs: Laboratory Tests 02/01/23 02/01/23 02/01/23 21:42 21:42 21:42 WBC 8.8 RBC 4.63 Hgb 14.4 Hct 43.1 MCV 93.1 MCH 31.1 H MCHC 33.4 RDW 14.4 Plt Count 252 MPV 8.9 Neut # (Auto) 6.7 H Lymph # (Auto) 1.1 L [place] # (Auto) 0.9 Eos # (Auto) 0.1 Baso # (Auto) 0.0 Absolute Nucleated RBC 0.00 Nucleated RBC % 0.0 PT 12.1 INR 1.1 Sodium 138 Potassium 3.6 Chloride 96 L Carbon Dioxide 32 Anion Gap 10.0 BUN 68 H Creatinine 1.9 H Estimated GFR (MDRD) 25 L Glucose 126 H Calcium 10.8 H Total Bilirubin 1.4 H AST 31 ALT 31 Alkaline Phosphatase 49 B-Natriuretic Peptide Total Protein 7.0 Albumin 4.2 Globulin 2.8 Albumin/Globulin Ratio 1.5 Lipase 26 Urine Color Urine Clarity Urine pH Ur Specific [place] Urine Protein Urine Glucose (UA) Urine Ketones Urine Occult Blood Urine Nitrite Urine Bilirubin Urine Urobilinogen Ur Leukocyte Esterase Urine RBC Urine WBC Ur Squamous Epith Cells Urine Bacteria Urine Culture Comments 02/01/23 02/01/23 21:42 23:20 WBC RBC Hgb Hct MCV MCH MCHC RDW Plt Count MPV Neut # (Auto) Lymph # (Auto) [place] # (Auto) Eos # (Auto) Baso # (Auto) Absolute Nucleated RBC Nucleated RBC % PT INR Sodium Potassium Chloride Carbon Dioxide Anion Gap BUN Creatinine Estimated GFR (MDRD) Glucose Calcium Total Bilirubin AST ALT Alkaline Phosphatase B-Natriuretic Peptide 87 Total Protein Albumin Globulin Albumin/Globulin Ratio Lipase Urine Color YELLOW Urine Clarity CLEAR Urine pH 5.0 Ur Specific [place] 1.010 Urine Protein NEGATIVE Urine Glucose (UA) NEGATIVE Urine Ketones TRACE Urine Occult Blood NEGATIVE Urine Nitrite NEGATIVE Urine Bilirubin NEGATIVE Urine Urobilinogen 0.2 (NORMAL) Ur Leukocyte Esterase NEGATIVE Urine RBC None Seen Urine WBC 0-3 Ur Squamous Epith Cells NONE SEEN Urine Bacteria None Seen Urine Culture Comments NOT INDICATED PD Medical Decision Making - ED course ED course: 87yF presents to the ED as modified trauma after GLF today around 0800 with +HT but no LOC. patient is on warfarin. Patient has discomfort along midline thoracic spine but no cervical spine tenderness. cannot clear per NEXUS criteria due to age >65, however she declined c collar and given her advanced age we will omit it for comfort. Ct head/c spine as well as CXR/pelvic xr ordered. Note that son states she has been acting confused X 3 days, c/o dysuria, and had increased leg swelling x 1 week therefore cbc, abdominal panel, u/a, bnp ordered. ekg was ordered from triage and showed afib without any other acute findings. Plan to f/u trauma imaging and labs. Labs - mild sarah with cre 1.9 up from baseline 1.5. BNP normal and no leukocytosis. CT head/c spine and xray imaging was without evidence of traumatic pathology per my interpretation and that of outside radiologist. Still waiting on u/a. straight cath ordered. u/a negative. d/w patient and her son. advised to f/u with PCP regarding LE edema. symptomatic care such as compression stockings, leg elevation discussed. return precautions given. Departure - Departure Disposition: 01 Home, Self Care Clinical Impression: Head trauma, Fall, Leg swelling Condition: Stable Instructions: Chronic Venous Insufficiency Comments: Ms. España was seen in the emergency department for evaluation after a fall as well as for confusion and leg swelling. Her head and neck CT and chest and pelvic x-ray and COVID no traumatic issues. Her legs are pretty swollen and she will need to follow-up with her primary care provider in regards to this. Some simple at home and things that can be done her to buy compression stockings or Johnathan wraps for the legs and elevate them as much as possible around the house. She did have some mild kidney irritation on lab work so I am not recommending that we increase her water pill right now. Please have her see her doctor for further recommendations. Return to the emergency department if you have other concerns.
[2023-02-01 21:48] LABS: BASOPHILS % (AUTO) 0.3 %; EOSINOPHILS # (AUTO) 0.1 10^3/uL (0.0-0.7); HCT - HEMATOCRIT 43.1 % (37.0-47.0); HGB - HEMOGLOBIN 14.4 g/dL (12.0-16.0); LYMPHOCYTES # (AUTO) 1.1 10^3/uL (1.5-3.5); LYMPHOCYTES % (AUTO) 12.7 %; MEAN CORPUSCULAR HEMOGLOBIN 31.1 pg (27.0-31.0); MEAN CORPUSCULAR HGB CONC 33.4 g/dL (32.0-36.0); MEAN CORPUSCULAR VOLUME 93.1 fL (81.0-99.0); MEAN PLATELET VOLUME 8.9 fL (7.9-10.8); MONOCYTES # (AUTO) 0.9 10^3/uL (0.0-1.0); MONOCYTES % (AUTO) 10.1 %; NEUTROPHILS # (AUTO) 6.7 10^3/uL (1.5-6.6); NEUTROPHILS % (AUTO) 75.4 %; PLT - PLATELET COUNT 252 10^3/uL (130-450); RED BLOOD COUNT 4.63 10^6/uL (4.20-5.40); RED CELL DISTRIBUTION WIDTH 14.4 % (12.0-15.0); WHITE BLOOD COUNT 8.8 x10^3/uL (4.8-10.8)
--- NOTE | 2023-02-01 21:48 | CT Report ---
PROCEDURE: HEAD WO INDICATIONS: fall this morning 0800 on warfarin +HT no loc TECHNIQUE: Noncontrast 4.5 mm thick angled axial sections acquired from the foramen magnum to the vertex. For r adiation dose reduction, the following was used: automated exposure control, adjustment of mA and/or kV according to patient size. COMPARISON: CT head 01/13/2023. FINDINGS: Image quality: There is motion artifact limiting evaluation. CSF spaces: There is moderate cerebral volume loss with prominence of the ventricles and sulci. Basa l cisterns are patent. No extra-axial fluid collections. Brain: No definite intracranial hemorrhage, mass, or mass effect. Sidhu-white matter interface is pre served. There are subcortical and periventricular white matter hypodensities consistent with mild chr onic small vessel ischemic changes. There is a coarse focus of intra-axial calcification redemonstrat ed within the left frontal lobe. Skull and face: Calvarium and visualized facial bones are intact, without suspicious lesions. Sinuses: Visualized sinuses and mastoids are clear. IMPRESSION: 1. No definite acute intracranial abnormality. 2. Moderate cerebral volume loss and mild chronic white matter small vessel ischemic changes. Reviewed by: Aris Wayne MD on 02/01/2023 9:46 PM PDT Approved by: Aris Wayne MD on 02/01/2023 9:46 PM PDT Station ID: [id number]
[2023-02-01 21:57] LABS: INR 1.1 (0.8-1.2); PT - PROTHROMBIN TIME 12.1 secs (9.9-12.6)
[2023-02-01 22:02] LABS: ALBUMIN 4.2 g/dL (3.2-5.5); ALBUMIN/GLOBULIN RATIO 1.5 (1.0-2.2); BILIRUBIN,TOTAL 1.4 mg/dL (0.2-1.0); CALCIUM 10.8 mg/dL (8.5-10.3); CREATININE 1.9 mg/dL (0.4-1.0); POTASSIUM 3.6 mmol/L (3.5-5.0)
--- NOTE | 2023-02-01 22:04 | CT Report ---
PROCEDURE: CERVICAL SPINE WO INDICATIONS: fall, modified trauma TECHNIQUE: Noncontrast 3 mm thick sections acquired from the skull base to the T4 level. Sagittal and coronal r eformats were then constructed. For radiation dose reduction, the following was used: automated exp osure control, adjustment of mA and/or kV according to patient size. COMPARISON: None. FINDINGS: Image quality: Excellent. Bones: No fractures or subluxation. There is minimal listhesis at C2-C3, C7-T1, and T1-T2. There is mild straightening of the cervical lordosis. Multilevel degenerative disc disease and facet arthropat hy are present. Visualized superior ribs are intact. Soft tissues: Prevertebral soft tissues are normal in thickness. No paravertebral hematomas. No ap ical pneumothoraces. IMPRESSION: 1. No acute fracture or subluxation. Reviewed by: Aris Wayne MD on 02/01/2023 10:02 PM PDT Approved by: Aris Wayne MD on 02/01/2023 10:02 PM PDT Station ID: [id number]
--- NOTE | 2023-02-01 22:05 | XRAY Report ---
PROCEDURE: Chest 1 View X-Ray INDICATIONS: Chest Pain TECHNIQUE: One view of the chest was acquired. COMPARISON: Chest x-ray 01/25/2023. FINDINGS: Surgical changes and devices: None. Lungs and pleura: The medial lung apices are obscured by patient's neck soft tissues. No definite pn eumothorax or pleural effusions. There are low lung volumes. Increased pulmonary vascular prominence suggestive of mild edema. Mediastinum: Mediastinal contours appear unchanged. Heart size is normal. Bones and chest wall: No suspicious bony lesions. Overlying soft tissues appear unremarkable. IMPRESSION: 1. Increased pulmonary vascular prominence suggestive of mild edema. Reviewed by: Aris Wayne MD on 02/01/2023 10:03 PM PDT Approved by: Aris Wayne MD on 02/01/2023 10:03 PM PDT Station ID: [id number]
--- NOTE | 2023-02-01 22:37 | XRAY Report ---
PROCEDURE: Pelvis 1 View INDICATIONS: fall, modified trauma TECHNIQUE: Single view of the pelvis acquired. COMPARISON: None. FINDINGS: Bones: No definite fractures or dislocations. There is a left hip prosthesis demonstrated. No suspi cious bony lesions. Soft tissues: Visualized bowel gas pattern is normal. There are calcifications within the right hira pelvis likely representing a calcified fibroid. IMPRESSION: 1. No definite fracture or dislocation. Reviewed by: Aris Wayne MD on 02/01/2023 10:36 PM PDT Approved by: Aris Wayne MD on 02/01/2023 10:36 PM PDT Station ID: [id number]
[2023-02-01 23:37] LABS: BILIRUBIN,URINE NEGATIVE (NEGATIVE); GLUCOSE, URINE (UA) NEGATIVE (NEGATIVE); KETONES,URINE (UA) TRACE mg/dL (NEGATIVE); LEUKOCYTE ESTERASE, URINE NEGATIVE (NEGATIVE); NITRITE,URINE NEGATIVE (NEGATIVE); OCCULT BLOOD,URINE NEGATIVE (NEGATIVE); PROTEIN,URINE NEGATIVE (NEGATIVE); UROBILINOGEN,URINE 0.2 (NORMAL) E.U./dL (NORMAL)
[2023-02-01 23:40] LABS: CLARITY,URINE CLEAR (CLEAR)
[2023-02-01 23:44] LABS: BACTERIA,URINE None Seen /HPF (None Seen); RBC,URINE None Seen /HPF (0-5); SQUAMOUS EPITHELIAL CELL,UR NONE SEEN (<= Few); WBC,URINE 0-3 /HPF (0-5)
[2023-02-01] MEDS ORDERED: ACETAMINOPHEN 325 MG TABLET PO STA (23:50)
[2023-02-02 01:02] VITALS: BP 105/67
== END 2023-02-02 01:41 | disposition home or self-care (01) ==
LOC: ED 20:11
DX: S09.90XA Unspecified injury of head, initial encounter (principal); R60.0 Localized edema; R30.0 Dysuria; W18.30XA Fall on same level, unspecified, initial encounter; Z66 Do not resuscitate; Z79.01 Long term (current) use of anticoagulants
CPT/HCPCS: 36415; 70450; 71045; 72125; 72170; 80053; 81001; 83690; 83880; 85025; 85610; 93005; 99283; 99284; A9270; 84484; 87086

== ENCOUNTER 2023-02-13 13:35 | Outpatient (CLI) | payer MEDICARE ==
[2023-02-13 13:58] LABS: CALCIUM 10.8 mg/dL (8.5-10.3); CREATININE 1.5 mg/dL (0.4-1.0); POTASSIUM 3.6 mmol/L (3.5-5.0)
== END 2023-02-13 13:36 | disposition home or self-care (01) ==
LOC: LAB 13:35
PROVIDERS: ATTEND Physician Assistant Medical
DX: N18.32 Chronic kidney disease, stage 3b (principal)
CPT/HCPCS: 36415; 80048